=== PATIENT | male | born 1950 | race Caucasian/White ===

== ENCOUNTER → 2018-05-15 | Outpatient (CLI) | payer MEDICARE ==
--- NOTE | 2018-05-15 16:20 | RADIOLOGY REPORT (SQ) ---
EXAM DESCRIPTION: CHEST PA/LATERAL COMPLETED DATE/TIME: 05/15/2018 4:11 pm REASON FOR STUDY: COPD COMPARISON: CT CHEST 11/08/2013 TWO-VIEW CHEST 06/25/2014 EXAM PARAMETERS: NUMBER OF VIEWS: two views TECHNIQUE: Digital Frontal and Lateral radiographic views of the chest acquired. RADIATION DOSE: NA LIMITATIONS: none FINDINGS: LUNGS AND PLEURA: Airspace disease in the left lower lobe worrisome for pneumonia. Right lung clear. No gross pleural effusions or pneumothorax. Upper lobes are hyperlucent from obstructive disease. MEDIASTINUM AND HILAR STRUCTURES: No masses or contour abnormalities. HEART AND VASCULAR STRUCTURES: Old sternotomy for CABG. No cardiomegaly. Radiodense right and left coronary stents are present BONES: No acute findings. HARDWARE: None in the chest. OTHER: No other significant finding. IMPRESSION: Left lower lobe pneumonia TECHNICAL DOCUMENTATION: JOB ID: [id number] [employer]- All Rights Reserved Reading location - IP/workstation name: [email or web address]
== END ==
LOC: OD 15:59
PROVIDERS: ATTEND Internal Medicine
DX: J44.9 Chronic obstructive pulmonary disease, unspecified (principal)
CPT/HCPCS: 71046

== ENCOUNTER → 2018-07-05 | Outpatient (CLI) | payer MEDICARE ==
--- NOTE | 2018-07-05 11:34 | RADIOLOGY REPORT (SQ) ---
EXAM DESCRIPTION: CHEST PA/LATERAL COMPLETED DATE/TIME: 07/05/2018 10:50 am REASON FOR STUDY: PNEUMONIA, UNSPECIFIED ORGANISM COMPARISON: 05/15/2018. EXAM PARAMETERS: NUMBER OF VIEWS: two views TECHNIQUE: Digital Frontal and Lateral radiographic views of the chest acquired. RADIATION DOSE: NA LIMITATIONS: none FINDINGS: LUNGS AND PLEURA: Diffuse airspace disease throughout the right lung, particularly the pos terior inferior right upper lobe. Patchy airspace disease in the left lung base. Small right pleura l effusion. MEDIASTINUM AND HILAR STRUCTURES: No masses or contour abnormalities. HEART AND VASCULAR STRUCTURES: Heart normal size. No evidence for failure. BONES: No acute findings. HARDWARE: Sternotomy wires and coronary bypass markers. OTHER: No other significant finding. IMPRESSION: AIRSPACE DISEASE, WORSE ON THE RIGHT, CONSISTENT WITH PNEUMONIA. TECHNICAL DOCUMENTATION: JOB ID: [id number] [employer]- All Rights Reserved Reading location - IP/workstation name: [facility]
== END ==
LOC: OD 10:29
PROVIDERS: ATTEND Internal Medicine
DX: J18.9 Pneumonia, unspecified organism (principal)
CPT/HCPCS: 71046

== ENCOUNTER → 2018-07-19 | Outpatient (CLI) | payer MEDICARE ==
--- NOTE | 2018-07-19 12:36 | RADIOLOGY REPORT (SQ) ---
EXAM DESCRIPTION: LUMBAR SPINE 2 VIEWS COMPLETED DATE/TIME: 07/19/2018 12:12 pm REASON FOR STUDY: RADICULOPATHY, LUMBAR REGION M54.16 RADICULOPATHY, LUMBAR REGION J18.9 PNEUMONIA , UNSPECIFIED ORGANISM COMPARISON: CT chest 11/08/2013 NUMBER OF VIEWS: Two views. TECHNIQUE: AP and lateral radiographic images acquired of the lumbar spine. LIMITATIONS: None. FINDINGS: MINERALIZATION: Osteopenic SEGMENTATION: Normal. No transitional anatomy. ALIGNMENT: 25% anterolisthesis of L5 over S1 related to bilateral L5 spondylolysis VERTEBRAE: Less than 25% upper endplate compression at L1, unchanged from 2014. The T12 level is overpenetrated on today's lateral lumbar spine film but does show stable 25% navneet linnea deformity of T12 as compared to 2014. DISCS: High-grade disc space loss of height with vacuum disc phenomenon and cozk-cu-guzd appearance a t L5-S1 POSTERIOR ELEMENTS: Bilateral L5 spondylolysis. L4-5 and L5-S1 facet arthropathy HARDWARE: None in the spine. PARASPINAL SOFT TISSUES: Normal. PELVIS: Not in the field of view. OTHER: Calcified abdominal aorta without calcified aneurysm IMPRESSION: Degenerative disc changes at L5-S1 TECHNICAL DOCUMENTATION: JOB ID: [id number] [employer]- All Rights Reserved Reading location - IP/workstation name: [email or web address]
--- NOTE | 2018-07-19 12:37 | RADIOLOGY REPORT (SQ) ---
EXAM DESCRIPTION: CHEST PA/LATERAL COMPLETED DATE/TIME: 07/19/2018 12:12 pm REASON FOR STUDY: PNEUMONIA, UNSPECIFIED ORGANISM COMPARISON: 07/05/2018 EXAM PARAMETERS: NUMBER OF VIEWS: two views TECHNIQUE: Digital Frontal and Lateral radiographic views of the chest acquired. RADIATION DOSE: NA LIMITATIONS: none FINDINGS: LUNGS AND PLEURA: There is persistent, somewhat patchy opacification in the posterior aspe ct of the right upper lobe and in the right lower lobe. There appears to be improvement compared to the earlier study. MEDIASTINUM AND HILAR STRUCTURES: No masses or contour abnormalities. HEART AND VASCULAR STRUCTURES: Heart normal size. No evidence for failure. BONES: No acute findings. HARDWARE: None in the chest. OTHER: No other significant finding. IMPRESSION: Improving airspace disease in the right lung. TECHNICAL DOCUMENTATION: JOB ID: [id number] [employer]- All Rights Reserved Reading location - IP/workstation name: [email or web address]
== END ==
LOC: OD 11:37
PROVIDERS: ATTEND Internal Medicine
DX: M51.17 Intervertebral disc disorders with radiculopathy, lumbosacral region (principal); J18.9 Pneumonia, unspecified organism
CPT/HCPCS: 71046; 72100

== ENCOUNTER → 2018-07-26 | Outpatient (CLI) | payer MEDICARE ==
--- NOTE | 2018-07-26 15:02 | RADIOLOGY REPORT (SQ) ---
EXAM DESCRIPTION: BONE SURVEY COMPLETE COMPLETED DATE/TIME: 07/26/2018 2:44 pm REASON FOR STUDY: S32.050A WEDGE COMPRESSION FRACTURE OF FIFTH LUMBAR VERTEBRA, INITIAL ENCOU S32.05 0A WEDGE COMPRESSION FRACTURE OF FIFTH LUMBAR VERTEBRA COMPARISON: 07/19/2018 chest films. TECHNIQUE: Images of the axial and proximal appendicular skeleton are obtained, along with lateral s kull and frontal chest films. LIMITATIONS: None. FINDINGS: AP CHEST: Coarse markings in the lung bases, right greater than left as before. Stable ca rdiomediastinal silhouette. LATERAL SKULL: No worrisome bone lesions. AP BOTH HUMERI: No worrisome bone lesions. TWO-VIEW LUMBAR SPINE: Grade 1/2 listhesis at the lumbosacral junction with spondylosis. Mild wedgin g at L1. Adjacent wedge compression fracture also at T12. TWO-VIEW THORACIC SPINE: Midthoracic compression fracture. AP PELVIS: No worrisome bone lesions. AP BOTH FEMURS: No worrisome bone lesions. OTHER: Marked atherosclerosis. Osteopenic. IMPRESSION: 1. Several compression fractures, age indeterminate. 2. Bones otherwise intact. 3. Stable lung changes. 4. Heavy atherosclerotic calcification. TECHNICAL DOCUMENTATION: JOB ID: [id number] [employer]- All Rights Reserved Reading location - IP/workstation name: [email or web address]
--- NOTE | 2018-07-26 15:03 | WOMENS IMAGING REPORT ---
EXAM DESCRIPTION: BONE DENSITY HIP/SPINE COMPLETED DATE/TIME: 07/26/2018 2:04 pm REASON FOR STUDY: S32.050A WEDGE COMPRESSION FRACTURE OF FIFTH LUMBAR VERTEBRA, INITIAL ENCOU S32.05 0A WEDGE COMPRESSION FRACTURE OF FIFTH LUMBAR VERTEBRA COMPARISON: None. TECHNIQUE: Dual-Energy X-ray Absorptiometry (DEXA) of the AP Spine and Hip. LIMITATIONS: None. FINDINGS: LUMBAR SPINE: The bone mineral density (BMD) measured from L1-L4 in the AP projection correlates with a T-score of -3.1, which is osteoporosis as defined by the World Health Organization. HIP: The bone mineral density (BMD) measured in the left hip correlates with a T-score of -2.7, which is o steoporosis as defined by the World Health Organization. IMPRESSION: 1. LUMBAR SPINE: OSTEOPOROSIS. 2. HIP: OSTEOPOROSIS. COMMENT: The World Health Organization defines low BMD as follows: T-score: Normal: Greater than -1.0 Osteopenia: Between -1.0 and -2.5 Osteoporosis: Less than -2.5 without fractures Established osteoporosis: Less than -2.5 with fractures In general, you may wish to consider: Diagnosis Treatment Follow-up DEXA Normal BMD Prevention 2-3 years Osteopenia Prevention/Therapy 1-2 years Osteoporosis Therapy Yearly TECHNICAL DOCUMENTATION: JOB ID: [id number] [employer]- All Rights Reserved Reading location - IP/workstation name: [email or web address]
== END ==
LOC: RAD 13:40
PROVIDERS: ATTEND Internal Medicine
DX: S32.050A Wedge compression fracture of fifth lumbar vertebra, initial encounter for closed fracture (principal); M81.0 Age-related osteoporosis without current pathological fracture; X58.XXXA Exposure to other specified factors, initial encounter
CPT/HCPCS: 77075; 77080

== ENCOUNTER → 2018-11-30 | Outpatient (CLI) | payer MEDICARE ==
--- NOTE | 2018-11-30 12:50 | RADIOLOGY REPORT (SQ) ---
EXAM DESCRIPTION: HIPS BILATERAL COMPLETED DATE/TIME: 11/30/2018 11:39 am REASON FOR STUDY: PRIMARY OSTEOARTHRITIS M16.0 BILATERAL PRIMARY OSTEOARTHRITIS OF HIP COMPARISON: 07/26/2018 skeletal survey NUMBER OF VIEWS: Two views TECHNIQUE: AP pelvis and additional frog-leg view of both hips. LIMITATIONS: None. FINDINGS: MINERALIZATION: Normal. HIPS: No acute fracture or dislocation. No worrisome bone lesions. No significant joint space narrow ing or bony spurring. PELVIS AND SACRUM: No acute fracture or dislocation. No worrisome bone lesions. PUBIS AND ISCHIUM: No acute fracture. LOWER LUMBAR SPINE: No significant findings as visualized. SOFT TISSUES: Markedly calcified iliac and common femoral arteries bilaterally with vascular surgical clips at the right and left inguinal regions likely related to bilateral arterial vascular bypass gr afts OTHER: No other significant finding. IMPRESSION: No acute bony findings. No bony findings to explain history of pain TECHNICAL DOCUMENTATION: JOB ID: [id number] [employer]- All Rights Reserved Reading location - IP/workstation name: [email or web address]
== END ==
LOC: OD 11:12
PROVIDERS: ATTEND Internal Medicine
DX: M16.0 Bilateral primary osteoarthritis of hip (principal)
CPT/HCPCS: 73522

== ENCOUNTER → 2018-12-20 | Outpatient (CLI) | payer MEDICARE ==
--- NOTE | 2018-12-20 10:34 | RADIOLOGY REPORT (SQ) ---
EXAM DESCRIPTION: MRI LUMBAR SPINE WITHOUT COMPLETED DATE/TIME: 12/20/2018 8:54 am REASON FOR STUDY: SACROILIITIS, NOT ELSEWHERE CLASSIFIED M43.17 SPONDYLOLISTHESIS, LUMBOSACRAL HEDY ON M46.1 SACROILIITIS, NOT ELSEWHERE CLASSIFIED COMPARISON: Skeletal survey 07/26/2018 TECHNIQUE: Sagittal and Axial imaging includes T1, T2, STIR and gradient echo sequences. Coronal T2/ HASTE imaging. LIMITATIONS: None. FINDINGS: VISUALIZED UPPER ABDOMEN: Limited evaluation. No acute or suspicious findings suggested. SEGMENTATION: No transitional anatomy. The lowest well-developed disc space is labeled L5-S1. ALIGNMENT: 25% anterolisthesis of L5 over S1 is present related to bilateral L5 spondylolysis VERTEBRAE: Chronic appearing Schmorl's nodes upper and lower endplates of T12 without loss of height BONE MARROW: Normal. No marrow replacement or reactive changes. DISC SIGNAL: Diffuse decreased T2 weighted intervertebral disc signal POSTERIOR ELEMENTS: Generally intact. No pars defect evident. HARDWARE: None in the spine. CORD AND CONUS: Normal in size and signal intensity. Conus at the L1-2 level. SOFT TISSUES: No aortic aneurysm seen. No bulky retroperitoneal adenopathy or mass. No paraspinal mas s or fluid. T11-12: Mild bilateral facet arthropathy. No central or foraminal stenosis. T12-L1: Mild bilateral facet arthropathy. No central or foraminal stenosis. L1-L2: Minimal posterior disc bulging is present with mild facet and ligament hypertrophy. No centra l or foraminal stenosis. L2-L3: Mild diffuse posterior disc bulge, moderate bilateral facet and ligament hypertrophy. Borderl ine central canal narrowing best shown on axial T2 image 11. There is mild bilateral inferior forami nal narrowing left greater than right without definite exit L2 nerve root impingement. L3-L4: Mild diffuse posterior disc bulging is present with moderate bilateral facet and ligament hype rtrophy. Mild central canal stenosis. This is best shown on axial T2 image 17.There is mild bilater al inferior foraminal narrowing without exiting L3 nerve root impingement. L4-L5: Broad diffuse posterior disc bulging is present with moderate bilateral facet and ligament hyp ertrophy. Mild central canal stenosis with flattening of the thecal sac into a triangular shape best shown on axial T2 image 23. 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 Clumped nerve roots are best shown on sagittal image 8 and axial images 25-27. Elsewhere at L4-5, there is bilateral bulky facet arthropathy. Moderate bilateral foraminal narrowin g is present without exiting L4 nerve root impingement. L5-S1: Bilateral spondylolysis at L5 with 25% anterolisthesis of L5 over S1. Broad diffuse posterior disc bulge and bony spurring. Bulky bilateral facet hypertrophy. This causes high-grade bilateral foraminal narrowing at L5 with effacement of fat around the exiting L5 nerve roots within the neural foramina, best shown on sagittal T2 image 5 and sagittal T2 image 11 and 12. There is no central stenosis at L5-S1. 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 SACRUM: Visualized upper sacrum intact. OTHER: No other significant findings. IMPRESSION: Degenerative changes most pronounced at L5-S1 and L4-5 as above. TECHNICAL DOCUMENTATION: JOB ID: [id number] [employer]- All Rights Reserved Reading location - IP/workstation name: [email or web address]
== END ==
LOC: RAD 07:50
PROVIDERS: ATTEND Pain Medicine Interventional Pain Medicine
DX: M43.17 Spondylolisthesis, lumbosacral region (principal); M46.1 Sacroiliitis, not elsewhere classified
CPT/HCPCS: 72148

== ENCOUNTER → 2019-01-01 | Outpatient (CLI) | payer MEDICARE ==
--- NOTE | 2019-01-01 14:47 | RADIOLOGY REPORT (SQ) ---
EXAM DESCRIPTION: L SPINE W/FLEX/EXT COMPLETED DATE/TIME: 01/01/2019 10:47 am REASON FOR STUDY: M43.17 SPONDYLOLISTHESIS, LUMBOSACRAL REGION M43.17 SPONDYLOLISTHESIS, LUMBOSACRA L REGION COMPARISON: 07/19/2018 NUMBER OF VIEWS: Seven views. TECHNIQUE: AP, lateral, obliques, flexion, extension, and sacral radiographic images acquired. LIMITATIONS: None. FINDINGS: MINERALIZATION: Normal. SEGMENTATION: Normal. No transitional anatomy. ALIGNMENT: Similar grade 1 anterolisthesis of L5 on S1 due to bilateral pars interarticularis defects . FLEXION/EXTENSION: No instability. VERTEBRAE: Stable, mild anterior wedging deformity of T12 and L1. DISCS: Similar degenerative changes, greatest at the L5-S1 level with high-grade disc height loss. POSTERIOR ELEMENTS: Moderate arthrosis. Bilateral L5 pars interarticularis defects. HARDWARE: None in the spine. PARASPINAL SOFT TISSUES: Heavy atherosclerotic calcifications. PELVIS: Intact as visualized. No fractures or worrisome bone lesions. SI joints intact. OTHER: No other significant finding. IMPRESSION: Similar grade 1 anterolisthesis of L5 on S1 due to bilateral pars interarticularis defec ts.Similar degenerative changes, greatest at the L5-S1 level with high-grade disc height loss. No ac bill moore's slough fracture, stable mild anterior wedging deformity of T12 and L1. NO INSTABILITY ON FLEXION/EXTENSION. TECHNICAL DOCUMENTATION: JOB ID: [id number] [place]-72 2010 [employer]- All Rights Reserved Reading location - IP/workstation name: [email or web address]
== END ==
LOC: RAD 10:05
PROVIDERS: ATTEND Pain Medicine Interventional Pain Medicine
DX: M43.17 Spondylolisthesis, lumbosacral region (principal)
CPT/HCPCS: 72114

== ENCOUNTER → 2019-02-01 | Outpatient (CLI) | payer MEDICARE ==
--- NOTE | 2019-02-01 13:08 | RADIOLOGY REPORT (SQ) ---
EXAM DESCRIPTION: CTA CHEST COMPLETED DATE/TIME: 02/01/2019 12:49 pm REASON FOR STUDY: R06.02 SHORTNESS OF BREATH R06.02 SHORTNESS OF BREATH COMPARISON: 11/08/2013 TECHNIQUE: CT scan of the chest performed using helical scanning technique with dynamic intravenous contrast injection. Images reviewed with lung, soft tissue and bone windows. Reconstructed coronal and sagittal MPR images reviewed. Additional 3 dimensional post-processing performed to develop Maximal Intensity Projection images ([place] P). All images stored on PACS. All CT scanners at this facility use dose modulation, iterative reconstruction, and/or weight based d osing when appropriate to reduce radiation dose to as low as reasonably achievable (ALARA). [facility]: Dose Right [facility]: CareDose [facility]: Dose Right [facility]: Teradose 4D [facility]: i[employer]yt [employer] CONTRAST TYPE AND DOSE: contrast/concentration: Isovue 350.00 mg/ml; Total Contrast Delivered: 75.0 ml; Total Saline Delivered: 65.0 ml Contrast bolus optimized for the pulmonary arteries. Not diagnostic for the aorta. RENAL FUNCTION: Creatinine 0.8 RADIATION DOSE: CT Rad equipment meets quality standard of care and radiation dose reduction techniq ues were employed. CTDIvol: 6.2 - 18.8 mGy. DLP: 260 mGy-cm. . LIMITATIONS: None. FINDINGS: LUNGS AND PLEURA: Extensive centrilobular emphysema. There is irregular opacification the right lower lobe posteriorly. AORTA AND GREAT VESSELS: No aneurysm. Contrast bolus not optimized for the aorta. HEART: No pericardial effusion. Prior CABG. PULMONARY ARTERIES: No emboli visualized in the main pulmonary arteries or the segmental branches. HILAR AND MEDIASTINAL STRUCTURES: There are some nonspecific mediastinal nodes. The largest has a sh ort axis diameter of 10 mm. HARDWARE: Sternotomy wires. UPPER ABDOMEN: A couple small gallstones are present. THYROID AND OTHER SOFT TISSUES: No masses. No adenopathy. BONES: Mild compression changes at several levels. No osseous lesions. 3D MIPS: Confirm above findings. OTHER: No other significant finding. IMPRESSION: There is no evidence of pulmonary emboli. There is extensive pulmonary emphysema. Ther e is stable scarring in the right lower lobe posteriorly. Cholelithiasis. Osseous findings as descr ibed. COMMENT: Quality ID # [id number]: Final reports with documentation of one or more dose reduction techniques (e.g., Automated exposure control, adjustment of the mA and/or kV according to patient size, use of iterative reconstruction technique) TECHNICAL DOCUMENTATION: JOB ID: [id number] [employer]- All Rights Reserved Reading location - IP/workstation name: [email or web address]
== END ==
LOC: RAD 12:28
PROVIDERS: ATTEND Internal Medicine
DX: R06.02 Shortness of breath (principal)
CPT/HCPCS: 71275; 82565

== ENCOUNTER → 2019-03-02 | Outpatient (CLI) | payer MEDICARE ==
--- NOTE | 2019-03-02 11:47 | RADIOLOGY REPORT (SQ) ---
EXAM DESCRIPTION: KNEE RIGHT 2 VIEWS COMPLETED DATE/TIME: 03/02/2019 10:07 am REASON FOR STUDY: PAIN IN RT KNEE M25.561 PAIN IN RIGHT KNEE COMPARISON: None. NUMBER OF VIEWS: Two views. TECHNIQUE: AP and lateral radiographic images acquired of the right knee. LIMITATIONS: None. FINDINGS: MINERALIZATION: Normal. BONES: No acute fracture or dislocation. No worrisome bone lesions. JOINT: No effusion. SOFT TISSUES: Extensive atherosclerotic calcification. OTHER: No other significant finding. IMPRESSION: NEGATIVE STUDY OF THE RIGHT KNEE. NO RADIOGRAPHIC EVIDENCE OF ACUTE INJURY. TECHNICAL DOCUMENTATION: JOB ID: [id number] [employer]- All Rights Reserved Reading location - IP/workstation name: [email or web address]
== END ==
LOC: OD 09:56
PROVIDERS: ATTEND Internal Medicine
DX: M25.561 Pain in right knee (principal)

== ENCOUNTER 2019-05-11 09:56 | Emergency (ER) | payer MEDICARE ==
--- NOTE | 2019-05-11 10:09 | ER Document Report ---
ED Medical Screen (RME) - General Chief Complaint: Leg Pain Stated Complaint: LEG PAIN Time Seen by Provider: 05/11/19 10:04 Primary Care Provider: BUTCH BAILEY MD [Primary Care Provider] - Follow up as needed Mode of Arrival: Ambulatory Information source: Patient Notes: 69-year-old male presented to ED for complaint of back pain to the left going down the left leg. He is on pain management with Dr. Del Castillo and his primary care doctor is Dr. Bailey. He states that he has had surgery to the left side in the past for poor circulation where they needed to open up some of the vessels and when he was at home today his foot was black. He states he always has pain and has taken some Aleve and morphine for the pain but his foot was black and is concerned about that his family has massaged his leg and it is now has some color to the foot but he is concerned that it will get back the same as it was when he goes home. I have greeted and performed a rapid initial assessment of this patient. A comprehensive ED assessment and evaluation of the patient, analysis of test results and completion of medical decision making process will be conducted by an additional ED providers. TRAVEL OUTSIDE OF THE [place] IN LAST 30 DAYS: No - Related Data Allergies/Adverse Reactions: Penicillins Allergy (Intermediate, Verified 05/11/19 10:04) Past Medical History - Past Medical History Cardiac Medical History: Reports: Hx Heart Attack, Hx Hypertension Pulmonary Medical History: Reports: Hx COPD, Hx Pneumonia Denies: Hx Tuberculosis Endocrine Medical History: Reports: Hx Hyperthyroidism Past Surgical History: Reports: Hx Cardiac Catheterization - with stents, Hx Cardiac Surgery - cabg, Hx Coronary Artery Bypass Graft - Immunizations Hx Diphtheria, Pertussis, Tetanus Vaccination: Yes Physical Exam - Vital signs Vitals: Temp Pulse Resp BP Pulse Ox 97.5 F 63 16 133/64 H 96 05/11/19 09:59 05/11/19 09:59 05/11/19 09:59 05/11/19 09:59 05/11/19 09:59 Course - Vital Signs Vital signs: Temp Pulse Resp BP Pulse Ox 97.5 F 63 16 133/64 H 96 05/11/19 09:59 05/11/19 09:59 05/11/19 09:59 05/11/19 09:59 05/11/19 09:59 Doctor's Discharge - Discharge Referrals: BUTCH BAILEY MD [Primary Care Provider] - Follow up as needed
[2019-05-11 10:42] LABS: PROTHROMBIN TIME 14.3 SEC (11.4-15.4)
[2019-05-11 10:43] LABS: ABSOLUTE BASOPHILS # (AUTO) 0.1 10^3/uL (0.0-0.2); ABSOLUTE EOSINOPHILS # (AUTO) 0.4 10^3/uL (0.0-0.6); ABSOLUTE MONOCYTES (AUTO) 0.8 10^3/uL (0.1-1.4); ABSOLUTE NEUT (AUTO) 5.2 10^3/uL (1.7-8.2); BASOPHILS % (AUTO) 0.9 % (0-2); HEMATOCRIT 35.2 % (37.9-51.0); HEMOGLOBIN 11.3 g/dL (13.5-17.0); LYMPHOCYTES % (AUTO) 31.4 % (13-45); MEAN CORPUSCULAR HEMOGLOBIN 25.3 pg (27.0-33.4); MEAN CORPUSCULAR VOLUME 79 fl (80-97); MONOCYTES % (AUTO) 8.9 % (3-13); PARTIAL THROMBOPLASTIN TIME 34.3 SEC (23.5-35.8); PLATELET COUNT 283 10^3/uL (150-450); RED BLOOD COUNT 4.46 10^6/uL (4.35-5.55); RED CELL DISTRIBUTION WIDTH 22.6 % (11.5-14.0); SEGMENTED NEUTROPHILS % (AUTO) 54.8 % (42-78); TOTAL CELLS COUNTED % (AUTO) 100 %; WHITE BLOOD COUNT 9.5 10^3/uL (4.0-10.5)
[2019-05-11 10:58] LABS: ALBUMIN 4.4 g/dL (3.5-5.0); ALKALINE PHOSPHATASE 81 U/L (38-126); ANION GAP 11 (5-19); ASPARTATE AMINO TRANSFERASE 37 U/L (17-59); BILIRUBIN,DIRECT 0.4 mg/dL (0.0-0.4); BILIRUBIN,TOTAL 0.6 mg/dL (0.2-1.3); BLOOD UREA NITROGEN 19 mg/dL (7-20); CALCIUM 9.4 mg/dL (8.4-10.2); CARBON DIOXIDE 29 mmol/L (22-30); CHLORIDE 95 mmol/L (98-107); GLUCOSE 104 mg/dL (75-110); POTASSIUM 4.8 mmol/L (3.6-5.0); TOTAL PROTEIN 8.5 g/dL (6.3-8.2)
--- NOTE | 2019-05-11 13:29 | ER Document Report ---
ED Extremity Problem, Lower - General Chief Complaint: Leg Pain Stated Complaint: LEG PAIN Time Seen by Provider: 05/11/19 10:04 Primary Care Provider: BUTCH BAILEY MD [Primary Care Provider] - Follow up as needed Mode of Arrival: Ambulatory TRAVEL OUTSIDE OF THE [place] IN LAST 30 DAYS: No - HPI Notes: 69-year-old male with pertinent past medical history of peripheral vascular disease with aorto ilio grafts bilaterally, coronary artery disease, hypertension, hyperlipidemia to the emergency department with with complaints of left lower leg pain and discoloration that has been ongoing for the past week. He states that he noticed the pain when he was getting out of his recliner. After that he started to notice that his lower leg on the left side was changing color and at times his foot would look black. He states that his was able to massage the leg this morning and he had some return of color to the to the leg. He states that the leg has been cool to touch. He states that he takes an aspirin but no other blood thinners. He had his grafts placed in 2007 in [facility]. He has not seen a vascular specialist since then. He denies any other complaints. - Related Data Allergies/Adverse Reactions: Penicillins Allergy (Intermediate, Verified 05/11/19 10:04) Home Medications: Lipitor. Asa. Metoprolol. MS Contin. Pro air. Flomax Past Medical History - General Information source: Patient - Social History Smoking Status: Former Smoker Family History: Reviewed & Not Pertinent Patient has suicidal ideation: No Patient has homicidal ideation: No - Past Medical History Cardiac Medical History: Reports: Hx Heart Attack, Hx Hypertension Pulmonary Medical History: Reports: Hx COPD, Hx Pneumonia Denies: Hx Tuberculosis Endocrine Medical History: Reports: Hx Hyperthyroidism Past Surgical History: Reports: Hx Cardiac Catheterization - with stents, Hx Cardiac Surgery - cabg, Hx Coronary Artery Bypass Graft - Immunizations Hx Diphtheria, Pertussis, Tetanus Vaccination: Yes Hx Pneumococcal Vaccination: 02/26/13 Physical Exam - Vital signs Vitals: Temp Pulse Resp BP Pulse Ox 97.5 F 63 16 133/64 H 96 05/11/19 09:59 05/11/19 09:59 05/11/19 09:59 05/11/19 09:59 05/11/19 09:59 Course - Re-evaluation Re-evalutation: 05/11/19 13:[address] Samuels, ER attending, and have already placed a page out to [facility] to get in touch with vascular surgeon for transfer for this patient's ischemic leg. I have discussed with patient and about my concerns for ischemic leg in particular with the vascular study. Tech approached me after she performed the arterial study and said that both grafts were occluded but he seemed to have minimal flow in the profunda with some reconstitution in the popliteal. I called our radiologist and confirmed this as well but overall the femoral, peritoneal, dorsal tibialis are all occluded. There appears to be some flow in the anterior tibialis and some of the dorsalis pedis. I cannot palpate any pulses on exam. 05/11/19 Spoke with [facility] transfer center, [facility], and Dr. Mays, vascular specialist, about the patient. Dr. Mays agrees that patient needs vascular intervention. Unfortunately [facility] does not have a bed and is currently under capacity. We will place patient on wait list which patient could wait up to 24 hours and look at other options for treatment plan. Dr. Mays is a agreeable to this plan. Placed a page out to [facility] to discuss patient. Updated patient and his and they agree with the plan. While paging [facility], [facility] called back and stated that they have made a bed available for the patient. Patient will go via ground ALS. They will send a truck. Asked [facility] with the transfer center to call Dr. Mays to see if he would like for me to start heparin on this patient and confirm NPO status. Spoke with [facility] again, Dr. Mays would like heparin infusion and does NOT want a bolus. He would like for patient to be NPO. Updated patient and family and they agree with the plan. Will await the transport team. Impression: Left ischemic leg. Will transfer to [facility] [address] Mays's service for further intervention and management. Dr. Samuels, my ER attending, agrees with the plan and is aware of the plan for transfer. - Vital Signs Vital signs: Temp Pulse Resp BP Pulse Ox 97.9 F 78 19 162/77 H 95 05/11/19 13:31 05/11/19 13:31 05/11/19 13:31 05/11/19 13:31 05/11/19 13:31 - Laboratory Result Diagrams: 05/11/19 10:16 05/11/19 10:16 Laboratory results interpreted by me: 05/11/19 05/11/19 10:16 10:16 Hgb 11.3 L Hct 35.2 L MCV 79 L MCH 25.3 L RDW 22.6 H Sodium 135.3 L Chloride 95 L Total Protein 8.5 H - Diagnostic Test Radiology reviewed: Image reviewed, Reports reviewed Discharge - Discharge Clinical Impression: Ischemic leg Condition: Stable Disposition: [facility] Referrals: BUTCH BAILEY MD [Primary Care Provider] - Follow up as needed
[2019-05-11] MEDS ORDERED: HEPARIN SODIUM,PORCINE/D5W 25,000 UNIT/250 ML RTUINJ IV PRN (14:33)
--- NOTE | 2019-05-11 15:56 | RADIOLOGY REPORT (SQ) ---
EXAM DESCRIPTION: ARTERIAL LOWER EXTREM BILAT COMPLETED DATE/TIME: 05/11/2019 2:05 pm REASON FOR STUDY: left foot and leg, foot black at home COMPARISON: None. TECHNIQUE: Dynamic and static murphy scale and color images acquired of the lower extremity arteries. Additional selected spectral images recorded. LIMITATIONS: None. FINDINGS: RIGHT LEG: The patient has a history of bypass surgery for occlusive aortic iliac disease. The left-sided limb of the graft is occluded. The left proximal profunda femoris artery is patent and it demonstrates mo nophasic waveforms on spectral Doppler. The left superficial femoral is occluded. The proximal left popliteal artery is reconstituted (presumably via collaterals) and it demonstrates monophasic wavefo chayo on spectral Doppler; the distal portion of the vessel is occluded as is the entire left posterior tibial artery. The left proximal peroneal artery is patent with monophasic waveforms on Doppler. T here are also monophasic waveforms throughout the length of the left anterior tibial artery and in th e dorsalis pedis artery. On the contralateral side the bypass graft is patent. The profunda femoris artery is also patent and demonstrates triphasic/biphasic waveforms on spectral Doppler. The left superficial femoral and pop liteal arteries are occluded. There are monophasic waveforms within the distal peroneal, anterior ti bial and posterior tibial arteries and in the dorsalis pedis. IMPRESSION: Occlusion of the left-sided aorto-bifemoral femoral bypass graft. The bilateral superfi cial femoral arteries and the right popliteal artery are also occluded. Below the popliteal fossa on the right there is evidence of severe arterial disease with monophasic waveforms in the peroneal, an terior tibial and posterior tibial arteries. On the left the posterior tibial artery is occluded and there is evidence of severe arterial disease with monophasic waveforms within the proximal peroneal and in the anterior tibial and dorsalis pedis. COMMENT: [facility] NORMAL: Greater than 1.0 MINIMAL DISEASE: 0.9 to 1.0 CLAUDICATION: 0.5 to 0.9 SEVERE ARTERIAL DISEASE: Less than 0.5 [facility] NORMAL: Greater than 1.0 (1.2 If Heavy Calcifications) NORMAL TO MILD ISCHEMIA: 0.8 to 1.0 MODERATE ISCHEMIA: 0.4 to 0.8 SEVERE ISCHEMIA: Less than 0.4 TECHNICAL DOCUMENTATION: JOB ID: [id number]- All Rights Reserved Reading location - IP/workstation name: [email or web address]
[2019-05-11 16:17] VITALS: BP 145/86
== END 2019-05-11 17:03 | disposition short-term general hospital (02) ==
LOC: ER 09:56
DX: I70.302 Unspecified atherosclerosis of unspecified type of bypass graft(s) of the extremities, left leg (principal); I70.202 Unspecified atherosclerosis of native arteries of extremities, left leg; M79.662 Pain in left lower leg; I25.10 Atherosclerotic heart disease of native coronary artery without angina pectoris; I10 Essential (primary) hypertension; I25.2 Old myocardial infarction; J44.9 Chronic obstructive pulmonary disease, unspecified; Z79.82 Long term (current) use of aspirin; Z79.899 Other long term (current) drug therapy; Z79.891 Long term (current) use of opiate analgesic; Z87.891 Personal history of nicotine dependence; Z95.1 Presence of aortocoronary bypass graft; Z95.5 Presence of coronary angioplasty implant and graft
CPT/HCPCS: 99284; 96365; 96366; 36415; 85025; 85610; 85730; 80053; 93925; J1644

== ENCOUNTER 2019-11-29 16:50 | Inpatient (IN) | payer MEDICARE ==
[2019-11-29 18:37] LABS: HEMATOCRIT 28.5 % (37.9-51.0); HEMOGLOBIN 8.8 g/dL (13.5-17.0); MEAN CORPUSCULAR HEMOGLOBIN 21.9 pg (27.0-33.4); MEAN CORPUSCULAR HGB CONC 30.9 g/dL (32.0-36.0); MEAN CORPUSCULAR VOLUME 71 fl (80-97); PLATELET COUNT 233 10^3/uL (150-450); RED BLOOD COUNT 4.02 10^6/uL (4.35-5.55); RED CELL DISTRIBUTION WIDTH 19.5 % (11.5-14.0); WHITE BLOOD COUNT 7.1 10^3/uL (4.0-10.5)
--- NOTE | 2019-11-29 18:37 | RADIOLOGY REPORT (SQ) ---
EXAM DESCRIPTION: CHEST SINGLE VIEW IMAGES COMPLETED DATE/TIME: 11/29/2019 6:20 pm REASON FOR STUDY: Short of breath, chf COMPARISON: 07/19/2018 EXAM PARAMETERS: NUMBER OF VIEWS: One view. TECHNIQUE: Single frontal radiographic view of the chest acquired. RADIATION DOSE: NA LIMITATIONS: None. FINDINGS: LUNGS AND PLEURA: No opacities, masses or pneumothorax. No pleural effusion. MEDIASTINUM AND HILAR STRUCTURES: No masses. Contour normal. HEART AND VASCULAR STRUCTURES: Cardiomegaly. No anthony pulmonary edema. BONES: No acute findings. HARDWARE: Sternotomy wires. OTHER: No other significant finding. IMPRESSION: Cardiomegaly without anthony pulmonary edema. TECHNICAL DOCUMENTATION: JOB ID: [id number] [employer]- All Rights Reserved Reading location - IP/workstation name: [email or web address]
[2019-11-29 18:47] LABS: ALBUMIN 4.7 g/dL (3.5-5.0); ALKALINE PHOSPHATASE 59 U/L (38-126); ANION GAP 13 (5-19); ASPARTATE AMINO TRANSFERASE 58 U/L (17-59); BILIRUBIN,DIRECT 0.3 mg/dL (0.0-0.4); BILIRUBIN,TOTAL 0.7 mg/dL (0.2-1.3); BLOOD UREA NITROGEN 15 mg/dL (7-20); CALCIUM 9.4 mg/dL (8.4-10.2); CARBON DIOXIDE 24 mmol/L (22-30); CHLORIDE 99 mmol/L (98-107); GLUCOSE 78 mg/dL (75-110); IRON(TIBC) 25.6 ug/dL (49-181); POTASSIUM 4.3 mmol/L (3.6-5.0); TOTAL PROTEIN 8.3 g/dL (6.3-8.2)
[2019-11-29 19:04] LABS: FREE T3 3.76 pg/mL (2.77-5.27); FREE T4 (FREE THYROXINE) 1.63 ng/dL (0.78-2.19)
[2019-11-29 19:06] LABS: ABSOLUTE LYMPHOCYTES# (MANUAL) 2.5 10^3/uL (0.5-4.7); ABSOLUTE MONOCYTES # (MANUAL) 0.5 10^3/uL (0.1-1.4); BASOPHILS % (MANUAL) 1 % (0-2); EOSINOPHILS % (MANUAL) 2 % (0-6); LYMPHOCYTES % (MANUAL) 33 % (13-45); MONOCYTES % (MANUAL) 7 % (3-13); SEGMENTED NEUTROPHILS % (MAN) 55 % (42-78); TOTAL CELLS COUNTED 100
[2019-11-29 19:09] LABS: ANISOCYTOSIS 2+; POIKILOCYTOSIS 1+; POLYCHROMASIA SLIGHT
[2019-11-29 19:10] LABS: BURR CELLS SLIGHT; OVALOCYTES SLIGHT; PLATELET COMMENT ADEQUATE; TARGET CELLS SLIGHT; TEAR DROP CELLS SLIGHT
[2019-11-29 19:18] LABS: THYROID STIMULATING HORMONE 0.36 uIU/mL (0.47-4.68)
[2019-11-29 19:23] LABS: FERRITIN 8.11 ng/mL (17.9-464.0)
[2019-11-29] MEDS ORDERED: FERRIC CARBOXYMALTOSE INJ 750 MG/15 ML VIAL IV SCH (20:00)
--- NOTE | 2019-11-29 20:22 | PDOC H&P ---
History of Present Illness Admission Date/PCP: 11/29/19 16:50 BUTCH BAILEY MD History of Present Illness: JOSE L FAROOQ is a 69 year old male.Patient was admitted directly for the management of acute systolic heart failure. I had telehealth video-audio encounter with the patient, he complained of increased shortness of breath and increased lower extremity swelling. I advised the patient to have serum B type natruretic peptide assayed, this was elevated consistent with CHF, he was also found to have iron deficiency anemia. He has a history of rectal cancer that was treated surgically, is scheduled to have GI endoscopy next week but because of the acute systolic heart failure he is admitted for management.Transthoracic echocardiogram was done, the left ventricular systolic function is mildly reduced the estimated ejection fraction about 40%, the right ventricle is moderately dilated, there is mild to moderate amount of mitral Regurgitation there is no aortic valve stenosis there is a trace amount of aortic regurgitation there is mild pulmonary hypertension Past Medical History Cardiac Medical History: Reports: Congestive Heart Failure, Coronary Artery Disease, Myocardial Infarction, Hyperlipidema, Hypertension, Peripheral Vascular Disease Pulmonary Medical History: Reports: Chronic Obstructive Pulmonary Disease (COPD), Pneumonia Past Surgical History Past Surgical History: Reports: Cardiac Catheterization - with stents, Coronary Artery Bypass Graft, Vascular Surgery Social History Smoking Status: Former Smoker Last Time Smoked: 2011 Frequency of Alcohol Use: Occasional Hx Recreational Drug Use: No Drugs: None Hx Prescription Drug Abuse: No Family History Family History: Reviewed & Not Pertinent Parental Family History Reviewed: Yes Children Family History Reviewed: Yes Sibling(s) Family History Reviewed.: Yes Medication/Allergy Home Medications: RX: Albuterol Sulfate [Proair HFA Inhalation Aerosol 8.5 gm MDI] 2 puff IH Q4HP PRN 12/11/12 RX: Morphine Sulfate [Ms-Contin Sr 100 mg Tablet] 60 mg PO Q12 12/11/12 RX: Budesonide/Formoterol Fumarate [Symbicort HFA 160-4.5 mcg Inhaler 6 gm] 2 puff IH Q12 02/05/13 Atorvastatin Calcium [Lipitor 20 mg Tablet] 20 mg PO QHS 11/08/13 Tamsulosin HCl [Flomax 0.4 mg Cap.sr] 0.4 mg PO DAILY 11/08/13 Aspirin [Ecotrin 81 mg EC Tablet] 81 mg PO DAILY 06/11/20 Metoprolol Succinate [Toprol Xl 25 mg Tab.sr] 25 mg PO DAILY 11/29/19 Nitroglycerin [Nitrostat 0.4 mg (1/150 Gr) Tabs 25/Bottle] 1 tab SL Q5MP PRN 11/29/19 Omeprazole 20 mg PO DAILY 11/29/19 RX: Furosemide [Lasix 40 mg Tablet] 40 mg PO DAILY 11/29/19 Tiotropium [place] [Spiriva Handihaler 5 Cap/Kit (18 Mcg/Cap)] 1 cap IH DAILY 11/29/19 Allergies/Adverse Reactions: Penicillins Allergy (Intermediate, Verified 05/11/19 10:04) Review of Systems Constitutional: ABSENT: chills, fever(s), headache(s), weight gain, weight loss Eyes: ABSENT: visual disturbances Ears: ABSENT: hearing changes Cardiovascular: PRESENT: dyspnea on exertion, edema, orthropnea, palpitations Respiratory: PRESENT: dyspnea. ABSENT: cough, hemoptysis Gastrointestinal: ABSENT: abdominal pain, constipation, diarrhea, hematemesis, hematochezia, nausea, vomiting Genitourinary: ABSENT: dysuria, hematuria Musculoskeletal: ABSENT: joint swelling Integumentary: ABSENT: rash, wounds Neurological: ABSENT: abnormal gait, abnormal speech, confusion, dizziness, focal weakness, syncope Psychiatric: ABSENT: anxiety, depression, homidical ideation, suicidal ideation Endocrine: ABSENT: cold intolerance, heat intolerance, menstrual abnormalities, polydipsia, polyuria Hematologic/Lymphatic: ABSENT: easy bleeding, easy bruising, lymphadenopathy Physical Exam Vital Signs: Temp Pulse Resp BP Pulse Ox 97.7 F 86 18 160/90 H 100 11/29/19 18:02 11/29/19 18:02 11/29/19 18:02 11/29/19 18:02 11/29/19 18:02 General appearance: PRESENT: no acute distress, thin Head exam: PRESENT: atraumatic, normocephalic Eye exam: PRESENT: PERRLA Ear exam: PRESENT: normal external ear exam Mouth exam: PRESENT: moist, tongue midline Neck exam: PRESENT: full ROM Respiratory exam: PRESENT: rales Cardiovascular exam: PRESENT: RRR, +S1, +S2, systolic murmur Vascular exam: PRESENT: normal capillary refill GI/Abdominal exam: PRESENT: normal bowel sounds, soft Rectal exam: PRESENT: deferred Neurological exam: PRESENT: alert, CN II-XII grossly intact Psychiatric exam: PRESENT: appropriate affect, normal mood Skin exam: PRESENT: dry, intact, warm Results Laboratory Results: 11/29/19 18:14 11/29/19 18:14 11/29/19 11/29/19 11/29/19 18:14 18:14 18:14 WBC 7.1 RBC 4.02 L Hgb 8.8 L Hct 28.5 L MCV 71 L MCH 21.9 L MCHC 30.9 L RDW 19.5 H Plt Count 233 Seg Neutrophils % Not Reportable Sodium 135.6 L Potassium 4.3 Chloride 99 Carbon Dioxide 24 Anion Gap 13 BUN 15 Creatinine 0.86 Est GFR ( Amer) > 60 Glucose 78 Calcium 9.4 Iron 25.6 L TIBC 514 H % Saturation 5 Ferritin 8.11 L Total Bilirubin 0.7 AST 58 Alkaline Phosphatase 59 Total Protein 8.3 H Albumin 4.7 TSH 0.36 L Free T4 1.63 Free T3 pg/mL 3.76 11/29/19 18:14 WBC RBC Hgb Hct MCV MCH MCHC RDW Plt Count Seg Neutrophils % Sodium Potassium Chloride Carbon Dioxide Anion Gap BUN Creatinine Est GFR ( Amer) Glucose Calcium Iron TIBC % Saturation Ferritin Total Bilirubin AST Alkaline Phosphatase Total Protein Albumin TSH Cancelled Free T4 Free T3 pg/mL 11/29/19 18:14 NT-Pro-B Natriuret Pep 5020 H Impressions: Chest X-Ray 11/29/19 00:00 IMPRESSION: Cardiomegaly without anthony pulmonary edema. Assessment & Plan - Diagnosis (1) Acute systolic heart failure Is this a current diagnosis for this admission?: Yes Plan: Patient to be treated for acute systolic heart failure, start furosemide infusion, Entresto, beta-carlos manuel (2) Iron deficiency anemia Qualifiers: Iron deficiency anemia type: chronic blood loss Qualified Code(s): D50.0 - Iron deficiency anemia secondary to blood loss (chronic) Is this a current diagnosis for this admission?: Yes Plan: Transfuse Injectafer, the hemoglobin is not low enough for blood transfusion, patient will need endoscopy probably after CHF is resolved (3) COPD (chronic obstructive pulmonary disease) Qualifiers: COPD type: unspecified COPD Qualified Code(s): J44.9 - Chronic obstructive pulmonary disease, unspecified Is this a current diagnosis for this admission?: Yes (4) CAD (coronary artery disease) Qualifiers: Coronary Disease-Associated Artery/Lesion type: [place] artery [place] vs. transplanted heart: [place] heart Associated angina: without angina Qualified Code(s): I25.10 - Atherosclerotic heart disease of [place] coronary artery without angina pectoris Is this a current diagnosis for this admission?: Yes Plan: Stable
[2019-11-29] MEDS ORDERED: (PENDING PHARMACY ID) (Albuterol Sulfate 2 PUFF) IH PRN (21:03)
[2019-11-29] MEDS ORDERED: (PENDING PHARMACY ID) (Tiotropium Bromide [Spiriva Handihaler 5 Cap/Kit (18 Mcg/Cap)] 1 CA IH SCH (21:15)
[2019-11-29] MEDS ORDERED: ALBUTEROL SULFATE HFA (90 MCG/PUFF) 8 GM MDI IH PRN (21:18)
[2019-11-29 22:00] LABS: TROPONIN I < 0.012 ng/mL
[2019-11-29] MEDS ORDERED: METOPROLOL SUCCINATE 25 MG TAB.SR.24H PO SCH (22:00)
[2019-11-29] MEDS ORDERED: MORPHINE SULFATE SR 100 MG TABLET PO SCH (22:00)
[2019-11-29] MEDS ORDERED: ENOXAPARIN SODIUM INJ 40 MG/0.4 ML DISP.SYRIN SUBCUT SCH (22:00)
[2019-11-29] MEDS: SACUBITRIL/VALSARTAN 24 MG/26 MG TABLET PO SCH (22:09)
[2019-11-29] MEDS: MORPHINE SULFATE SR 30 MG TABLET PO SCH (22:10)
[2019-11-29] MEDS: TAMSULOSIN HCL 0.4 MG CAP.SR.24H PO SCH (22:11)
[2019-11-29] MEDS: ATORVASTATIN CALCIUM 20 MG TABLET PO SCH (22:11)
[2019-11-29] MEDS: FLUTICASONE/VILANTEROL 200-25 MCG/DOSE IH SCH (22:12)
[2019-11-29] MEDS: FERRIC CARBOXYMALTOSE 750 MG in NORMAL SALINE 250 ML IV SCH (22:12)
[2019-11-29] MEDS: UMECLIDINIUM BROMIDE 62.5 MCG/DOSE IH SCH (22:13)
[2019-11-29] MEDS ORDERED: ENOXAPARIN SODIUM INJ 40 MG/0.4 ML DISP.SYRIN SUBCUT ONE (22:15)
[2019-11-29] MEDS ORDERED: METOPROLOL SUCCINATE 25 MG TAB.SR.24H PO ONE (22:30)
[2019-11-30] MEDS: NORMAL SALINE 250 ML with FUROSEMIDE 250 MG IV PRN ×2 (00:08)
[2019-11-30 03:54] LABS: APPEARANCE,URINE CLEAR; BILIRUBIN,URINE NEGATIVE (NEGATIVE); COLOR,URINE YELLOW; GLUCOSE, URINE NEGATIVE (NEGATIVE); KETONES,URINE NEGATIVE (NEGATIVE); LEUKOCYTE ESTERASE,URINE NEGATIVE (NEGATIVE); NITRITE,URINE NEGATIVE (NEGATIVE); PROTEIN,URINE NEGATIVE (NEGATIVE); URINE SPECIFIC GRAVITY 1.009
[2019-11-30] MEDS: PANTOPRAZOLE SODIUM 20 MG TABLET.DR PO SCH (05:38)
[2019-11-30 06:06] LABS: ALBUMIN 3.7 g/dL (3.5-5.0); ALKALINE PHOSPHATASE 51 U/L (38-126); ANION GAP 10 (5-19); ASPARTATE AMINO TRANSFERASE 44 U/L (17-59); BILIRUBIN,DIRECT 0.1 mg/dL (0.0-0.4); BLOOD UREA NITROGEN 16 mg/dL (7-20); CALCIUM 8.8 mg/dL (8.4-10.2); CARBON DIOXIDE 24 mmol/L (22-30); CHLORIDE 103 mmol/L (98-107); GLUCOSE 91 mg/dL (75-110); POTASSIUM 4.3 mmol/L (3.6-5.0); TOTAL PROTEIN 6.8 g/dL (6.3-8.2)
[2019-11-30 06:14] LABS: CREATINE KINASE MB 8.94 ng/mL (<4.55); TROPONIN I 0.012 ng/mL
[2019-11-30] MEDS: MORPHINE SULFATE SR 30 MG TABLET PO SCH ×2 (10:09→22:06)
[2019-11-30] MEDS: UMECLIDINIUM BROMIDE 62.5 MCG/DOSE IH SCH (10:10)
[2019-11-30] MEDS: FLUTICASONE/VILANTEROL 200-25 MCG/DOSE IH SCH (10:10)
[2019-11-30] MEDS: SACUBITRIL/VALSARTAN 24 MG/26 MG TABLET PO SCH ×2 (10:10→17:38)
--- NOTE | 2019-11-30 11:58 | PDOC CONSULTATION ---
Consultation Consult Date: 11/30/19 Attending physician:: BUTCH BAILEY Provider Consulted: ARNOL RUDOLPH Consult reason:: Congestive heart failure History of Present Illness Admission Date/PCP: 11/29/19 16:50 BUTCH BAILEY MD History of Present Illness: JOSE L FAROOQ is a 69 year old male 69-year-old male with the following active problems 1. COPD 2. Nicotine dependence in remission 3. Coronary artery disease 4. CABG 5. Congestive heart failure NYHA class II 6. Peripheral vascular disease 7. Status post aortoiliac bypass graft Patient has had insidious onset of dyspnea and bilateral lower extremity swelling which is progressed in the last week or so. Since admission to the hospital he feels somewhat better. Overnight telemetry showed sinus rhythm with bigeminy. No symptoms were reported. He does not presently report any chest pain. He follows with [facility]. No recent cardiac work-up is reported. Specifically denies any chest pain or anginal type symptoms. Reports compliance with his medications Former smoker. Quit about 8 years ago around the time of his bypass surgery. He also reports peripheral vascular disease and aortic iliac bypass. Numerous coronary interventions are also reported. Not aware of his recent ejection fraction. He reports compliance with his medications. No familial illnesses reported Past Medical History Cardiac Medical History: Reports: Myocardial Infarction, Hypertension Pulmonary Medical History: Reports: Chronic Obstructive Pulmonary Disease (COPD), Pneumonia Denies: Tuberculosis Endocrine Medical History: Reports: Hyperthyroidism Psychiatric Medical History: Denies: Depression Past Surgical History Past Surgical History: Reports: Cardiac Catheterization - with stents, Coronary Artery Bypass Graft, Vascular Surgery Social History Smoking Status: Former Smoker Last Time Smoked: 2011 Frequency of Alcohol Use: Occasional Hx Recreational Drug Use: No Drugs: None Hx Prescription Drug Abuse: No Family History Family History: Reviewed & Not Pertinent Parental Family History Reviewed: Yes - No familial illnesses reported Children Family History Reviewed: NA Sibling(s) Family History Reviewed.: NA Medication/Allergy Home Medications: Albuterol Sulfate [Proair HFA Inhalation Aerosol 8.5 gm MDI] 2 puff IH Q4HP PRN 12/11/12 Morphine Sulfate [Ms-Contin Sr 100 mg Tablet] 60 mg PO Q12 12/11/12 Budesonide/Formoterol Fumarate [Symbicort HFA 160-4.5 mcg Inhaler 6 gm] 2 puff IH Q12 02/05/13 Atorvastatin Calcium [Lipitor 20 mg Tablet] 20 mg PO QHS 11/08/13 Tamsulosin HCl [Flomax 0.4 mg Cap.sr] 0.4 mg PO DAILY 11/08/13 Aspirin [Ecotrin 81 mg EC Tablet] 81 mg PO DAILY 11/29/19 Furosemide [Lasix 40 mg Tablet] 40 mg PO DAILY 11/29/19 Metoprolol Succinate [Toprol Xl 25 mg Tab.sr] 25 mg PO DAILY 11/29/19 Nitroglycerin [Nitrostat 0.4 mg (1/150 Gr) Tabs 25/Bottle] 1 tab SL Q5MP PRN 11/29/19 Omeprazole 20 mg PO DAILY 11/29/19 Tiotropium [place] [Spiriva Handihaler 5 Cap/Kit (18 Mcg/Cap)] 1 cap IH DAILY 11/29/19 Allergies/Adverse Reactions: Penicillins Allergy (Intermediate, Verified 05/11/19 10:04) Review of Systems Constitutional: PRESENT: as per HPI Eyes: PRESENT: as per HPI Cardiovascular: PRESENT: dyspnea on exertion, edema, orthropnea Respiratory: PRESENT: dyspnea Physical Exam Vital Signs: Temp Pulse Resp BP Pulse Ox 97.5 F 66 18 105/44 L 96 11/30/19 10:55 11/30/19 10:55 11/30/19 10:55 11/30/19 10:55 11/30/19 10:55 Intake & Output 11/29/19 11/30/19 12/01/19 06:59 06:59 06:59 Intake Total 265 Output Total 625 Balance -625 265 Weight 54.2 kg General appearance: PRESENT: cooperative, thin Head exam: PRESENT: atraumatic, normocephalic Eye exam: PRESENT: conjunctiva pale, EOMI Mouth exam: PRESENT: moist Respiratory exam: PRESENT: crackles, decreased breath sounds, symmetrical, u nlabored Cardiovascular exam: PRESENT: RRR, +S1, +S2, systolic murmur Pulses: PRESENT: normal radial pulses GI/Abdominal exam: PRESENT: soft Rectal exam: PRESENT: deferred Neurological exam: PRESENT: alert, awake, oriented to person, oriented to place, oriented to time, oriented to situation Psychiatric exam: PRESENT: appropriate affect Skin exam: PRESENT: dry, intact, normal color Results Laboratory Results: 11/29/19 18:14 11/30/19 05:13 11/29/19 11/29/19 11/29/19 18:14 18:14 18:14 WBC 7.1 RBC 4.02 L Hgb 8.8 L Hct 28.5 L MCV 71 L MCH 21.9 L MCHC 30.9 L RDW 19.5 H Plt Count 233 Seg Neutrophils % Not Reportable Sodium 135.6 L Potassium 4.3 Chloride 99 Carbon Dioxide 24 Anion Gap 13 BUN 15 Creatinine 0.86 Est GFR ( Amer) > 60 Glucose 78 Calcium 9.4 Iron 25.6 L TIBC 514 H % Saturation 5 Ferritin 8.11 L Total Bilirubin 0.7 AST 58 Alkaline Phosphatase 59 Total Protein 8.3 H Albumin 4.7 TSH 0.36 L Free T4 1.63 Free T3 pg/mL 3.76 Urine Color Urine Appearance Urine pH Ur Specific [place] Urine Protein Urine Glucose (UA) Urine Ketones Urine Blood Urine Nitrite Ur Leukocyte Esterase Urine WBC (Auto) Urine RBC (Auto) 11/29/19 11/30/19 11/30/19 18:14 03:35 05:13 WBC RBC Hgb Hct MCV MCH MCHC RDW Plt Count Seg Neutrophils % Sodium 136.6 L Potassium 4.3 Chloride 103 Carbon Dioxide 24 Anion Gap 10 BUN 16 Creatinine 0.93 Est GFR ( Amer) > 60 Glucose 91 Calcium 8.8 Iron TIBC % Saturation Ferritin Total Bilirubin 1.0 AST 44 Alkaline Phosphatase 51 Total Protein 6.8 Albumin 3.7 TSH Cancelled Free T4 Free T3 pg/mL Urine Color YELLOW Urine Appearance CLEAR Urine pH 7.0 Ur Specific [place] 1.009 Urine Protein NEGATIVE Urine Glucose (UA) NEGATIVE Urine Ketones NEGATIVE Urine Blood NEGATIVE Urine Nitrite NEGATIVE Ur Leukocyte Esterase NEGATIVE Urine WBC (Auto) 0 Urine RBC (Auto) 0 11/29/19 11/29/19 11/29/19 18:14 21:16 21:16 Creatine Kinase 750 H CK-MB (CK-2) 13.70 H Troponin I < 0.012 NT-Pro-B Natriuret Pep 5020 H 11/30/19 11/30/19 05:13 05:13 Creatine Kinase 486 H CK-MB (CK-2) 8.94 H Troponin I 0.012 NT-Pro-B Natriuret Pep EKG Comments: Telemetry presently shows sinus rhythm at 82 bpm Twelve-lead EKG 11/30/2019. Independently reviewed by me. Sinus rhythm, 74 bpm. With PVCs in a bigeminal pattern. Lab data Hemoglobin 8.8-previous 11.3 on May 11, 2019 Platelets 233 Troponin is less than 0.12 Ferritin level is low at 8.11 Iron level is low is 25.6 Chest x-ray 11/29/2019 Cardiomegaly without anthony pulmonary edema. Sternotomy wires. Impressions: Chest X-Ray 11/29/19 00:00 IMPRESSION: Cardiomegaly without anthony pulmonary edema. Assessment & Plan - Diagnosis (1) Anemia Qualifiers: Anemia type: iron deficiency Is this a current diagnosis for this admission?: Yes Plan: Iron deficiency anemia by labs. This requires additional work-up May be symptoms are probably related to anemia. Will review echocardiogram that has been performed. (2) CAD (coronary artery disease) Qualifiers: Coronary Disease-Associated Artery/Lesion type: [place] artery [place] vs. transplanted heart: [place] heart Is this a current diagnosis for this admission?: Yes Plan: Not having ischemic type chest pain or symptoms suggestive of ongoing myocardial ischemia Continue guideline directed medical therapy for coronary artery disease I suspect he may be having occult GI blood loss. We will hold off on antiplatelet agents until anemia is corrected and worked up. No ischemic symptoms at the moment Continue other medications including beta-blockers and statins as feasible. (3) CHF (congestive heart failure), NYHA class II Qualifiers: Congestive heart failure type: systolic Congestive heart failure chronicity: acute on chronic Qualified Code(s): I50.23 - Acute on chronic systolic (congestive) heart failure Is this a current diagnosis for this admission?: Yes Plan: Presentation suggestive of acute on chronic congestive heart failure. It is po ssible that anemia has precipitated the situation. We will review echocardiogram. Meanwhile limit total free water intake to less than 1 L/day
--- NOTE | 2019-11-30 12:00 | RADIOLOGY REPORT (SQ) ---
EXAM DESCRIPTION: CT CHEST WITHOUT IMAGES COMPLETED DATE/TIME: 11/30/2019 11:37 am REASON FOR STUDY: pneumonia COMPARISON: Chest x-ray dated 11/29/2019. Chest CT dated 02/01/2019. TECHNIQUE: CT scan performed of the chest without intravenous contrast. Images reviewed with lung, soft tissue and bone windows. Reconstructed coronal and sagittal MPR images reviewed. All images st ored on PACS. All CT scanners at this facility use dose modulation, iterative reconstruction, and/or weight based d osing when appropriate to reduce radiation dose to as low as reasonably achievable (ALARA). [facility]: Dose Right [facility]: CareDose [facility]: Dose Right [facility]: Teradose 4D [facility]: [place] RADIATION DOSE: CT Rad equipment meets quality standard of care and radiation dose reduction techniq ues were employed. CTDIvol: 3.8 mGy. DLP: 151 mGy-cm. mGy. LIMITATIONS: No technical limitations. FINDINGS: LUNGS AND PLEURA: Chronic emphysematous changes. Stable chronic scarring in the right [place] g base. No masses, infiltrates, or pneumothorax. No pleural effusions or pleural calcifications. HILAR AND MEDIASTINAL STRUCTURES: No identified masses or abnormal nodes. No obvious aneurysm. HEART AND VASCULAR STRUCTURES: No aneurysm. No pericardial effusion. UPPER ABDOMEN: No significant findings. Limited exam. THYROID AND OTHER SOFT TISSUES: No masses. No adenopathy. BONES: Stable mild compression deformities in several vertebrae. HARDWARE: Sternotomy wires and coronary bypass markers. OTHER: No other significant findings. IMPRESSION: STABLE CHRONIC EMPHYSEMATOUS CHANGES AND CHRONIC SCARRING IN THE RIGHT LUNG BASE. NO AC GHISLAINE FINDING ON NON-CONTRASTED CHEST CT. TECHNICAL DOCUMENTATION: JOB ID: [id number] Quality ID # [id number]: Final reports with documentation of one or more dose reduction techniques (e.g., Au tomated exposure control, adjustment of the mA and/or kV according to patient size, use of iterative reconstruction technique) 2010 [email or web address]- All Rights Reserved Reading location - IP/workstation name: [email or web address]
--- NOTE | 2019-11-30 12:42 | XCELERA REPORT ---
[address] [address] Transthoracic Echocardiogram Report Name: JOSE L FAROOQ Age: 69 yrs Gender: Male : 1950 Patient Status: Inpatient Patient Location: [address] [place], [place] [id number] Study Date: 11/29/2019 06:55 PM History: CHF CABG Height: 67 in Weight: 119 lb BSA: 1.6 m2 Procedure: A complete two-dimensional transthoracic echocardiogram was performed (2D, M-mode, spectral and color flow Doppler). The study was technically difficult with many images being suboptimal in quality. Reason For Study: CHF Ordering Physician: BUTCH BAILEY Performed By: Alize Tamez Interpretation Summary Left ventricular systolic function is mildly reduced. The Ejection Fraction estimate is 40-45% The right ventricle is mild to moderately dilated. There is a mild to moderate amount of mitral regurgitation There is no aortic valve stenosis There is a trace amount of aortic regurgitation There is a mild amount of tricuspid regurgitation There is mild pulmonary hypertension by echo There is no pericardial effusion. MMode/2D Measurements & Calculations RVDd: 4.6 cm LVIDd: 5.4 cm FS: 22.9 % Ao root diam: 3.2 cm IVSd: 0.80 cm LVIDs: 4.2 cm EDV(Teich): 143.9 ml Ao root area: 8.0 cm2 LVPWd: 0.89 cm ESV(Teich): 78.3 ml LA dimension: 5.0 cm EF(Teich): 45.6 % LVOT diam: 1.7 cm LVOT area: 2.3 cm2 Doppler Measurements & Calculations MV E max samuel: MV P1/2t max samuel: Ao V2 max: AI max samuel: 157.9 cm/sec 174.6 cm/sec 123.7 cm/sec 129.1 cm/sec MV A max samuel: MV P1/2t: 76.6 msec Ao max PG: AI max P.7 mmHg 40.6 cm/sec MVA(P1/2t): 2.9 cm2 6.1 mmHg AI dec slope: MV E/A: 3.9 MV dec slope: WILMA(V,D): 1.7 cm2 120.6 cm/sec2 AI P1/2t: 668.1 cm/sec2 313.4 msec MV dec time: 0.18 sec LV V1 max PG: PA V2 max: PI end-d samuel: TR max samuel: 3.5 mmHg 65.1 cm/sec 130.3 cm/sec 279.1 cm/sec LV V1 max: PA max P.7 mmHg TR max P.2 cm/sec 31.2 mmHg AV P1/2t-pr_phl: MV P1/2t-pr_phl: 313.4 msec 76.6 msec Left Ventricle The left ventricle is borderline dilated. There is borderline concentric left ventricular hypertrophy. Left ventricular systolic function is mildly reduced. The Ejection Fraction estimate is 40-45%. Doppler measurements suggest reversible restrictive left ventricular relaxation, which is associated with grade III/IV or moderate diastolic dysfunction. There is mild global hypokinesis of the left ventricle. Right Ventricle The right ventricle is mild to moderately dilated. The right ventricular systolic function is moderately reduced. Atria The right atrium is mildly dilated. The left atrium is mildly dilated. Mitral Valve Calcified mitral apparatus. There is mild mitral stenosis. There is a mild to moderate amount of mitral regurgitation. Aortic Valve The aortic valve is calcified. The aortic valve is sclerotic and shows some degree of functional abnormality. There is no aortic valve stenosis. There is a trace amount of aortic regurgitation. Tricuspid Valve The tricuspid valve is not well visualized, but is grossly normal. There is a mild amount of tricuspid regurgitation. Right ventricular systolic pressure is estimated to be elevated at 30-40mmHg. There is mild pulmonary hypertension by echo. Pulmonic Valve The pulmonic valve is not well visualized. There is a mild amount of pulmonic regurgitation. Great Vessels There is aortic root sclerosis/calcification. The aortic root is normal size. The inferior vena cava appeared normal and decreased > 50% with respiration (RAP 5-10 mmHg). Effusions There is no pericardial effusion. : BUTCH BAILEY Anil
[2019-11-30 13:48] LABS: TROPONIN I < 0.012 ng/mL
[2019-11-30] MEDS: ONDANSETRON HCL 8 MG TABLET PO PRN (16:27)
[2019-11-30] MEDS: PHARMACY COMMUNICATION ORDER MC SCH (17:38)
[2019-11-30] MEDS: TAMSULOSIN HCL 0.4 MG CAP.SR.24H PO SCH (17:38)
--- NOTE | 2019-11-30 19:15 | EKG REPORT ---
SEVERITY:- ABNORMAL ECG - SINUS RHYTHM VENTRICULAR BIGEMINY RIGHT BUNDLE BRANCH BLOCK PROBABLE INFERIOR INFARCT, AGE INDETERMINATE : Confirmed by: Gianna Brandt MD 30-Nov-2019 19:14:16
[2019-11-30] MEDS: ENOXAPARIN SODIUM INJ 40 MG/0.4 ML DISP.SYRIN SUBCUT SCH (21:17)
[2019-11-30] MEDS: ATORVASTATIN CALCIUM 20 MG TABLET PO SCH (21:17)
[2019-11-30] MEDS: METOPROLOL SUCCINATE 25 MG TAB.SR.24H PO SCH (21:18)
--- NOTE | 2019-11-30 21:45 | PDOC PROGRESS REPORT ---
Subjective Progress Note for:: 11/30/19 Subjective:: Patient seen by the bedside, he was admitted yesterday for the management of acute systolic heart failure Reason For Visit: ACUTE SYSTOLIC HEART FAILURE, MICROCYTIC ANEMIA Physical Exam Vital Signs: Temp Pulse Resp BP Pulse Ox 97.6 F 65 18 111/49 L 92 11/30/19 15:18 11/30/19 15:18 11/30/19 15:18 11/30/19 15:18 11/30/19 15:18 Intake & Output 11/29/19 11/30/19 12/01/19 06:59 06:59 06:59 Intake Total 1370 Output Total 625 950 Balance -625 420 Weight 54.2 kg General appearance: PRESENT: no acute distress Head exam: PRESENT: atraumatic, normocephalic Eye exam: PRESENT: conjunctiva pink, EOMI, PERRLA Ear exam: PRESENT: normal external ear exam Mouth exam: PRESENT: moist, tongue midline Neck exam: PRESENT: full ROM Respiratory exam: PRESENT: clear to auscultation josselyn Cardiovascular exam: PRESENT: RRR, +S1, +S2 Pulses: PRESENT: normal dorsalis pedis pul, +2 pedal pulses bilateral Vascular exam: PRESENT: normal capillary refill GI/Abdominal exam: PRESENT: normal bowel sounds, soft Rectal exam: PRESENT: deferred Neurological exam: PRESENT: alert, CN II-XII grossly intact Psychiatric exam: PRESENT: appropriate affect, normal mood Skin exam: PRESENT: dry, intact, warm Results Laboratory Results: 11/29/19 18:14 11/30/19 05:13 11/30/19 11/30/19 11/30/19 03:35 05:13 05:13 Sodium 136.6 L Potassium 4.3 Chloride 103 Carbon Dioxide 24 Anion Gap 10 BUN 16 Creatinine 0.93 Est GFR ( Amer) > 60 Glucose 91 Calcium 8.8 Magnesium 2.2 Total Bilirubin 1.0 AST 44 Alkaline Phosphatase 51 Total Protein 6.8 Albumin 3.7 Urine Color YELLOW Urine Appearance CLEAR Urine pH 7.0 Ur Specific [place] 1.009 Urine Protein NEGATIVE Urine Glucose (UA) NEGATIVE Urine Ketones NEGATIVE Urine Blood NEGATIVE Urine Nitrite NEGATIVE Ur Leukocyte Esterase NEGATIVE Urine WBC (Auto) 0 Urine RBC (Auto) 0 11/29/19 11/29/19 11/29/19 18:14 21:16 21:16 Creatine Kinase 750 H CK-MB (CK-2) 13.70 H Troponin I < 0.012 NT-Pro-B Natriuret Pep 5020 H 11/30/19 11/30/19 11/30/19 05:13 05:13 13:02 Creatine Kinase 486 H 476 H CK-MB (CK-2) 8.94 H Troponin I 0.012 NT-Pro-B Natriuret Pep 11/30/19 13:02 Creatine Kinase CK-MB (CK-2) 11.50 H Troponin I < 0.012 NT-Pro-B Natriuret Pep Impressions: Chest X-Ray 11/29/19 00:00 IMPRESSION: Cardiomegaly without anthony pulmonary edema. Chest CT 11/30/19 00:00 IMPRESSION: STABLE CHRONIC EMPHYSEMATOUS CHANGES AND CHRONIC SCARRING IN THE RIGHT LUNG BASE. NO ACUTE FINDING ON NON-CONTRASTED CHEST CT. Assessment & Plan - Diagnosis (1) Acute systolic heart failure Is this a current diagnosis for this admission?: Yes Plan: Continue anti-CHF regimen, Entresto, metoprolol (2) Iron deficiency anemia Qualifiers: Iron deficiency anemia type: chronic blood loss Qualified Code(s): D50.0 - Iron deficiency anemia secondary to blood loss (chronic) Is this a current diagnosis for this admission?: Yes Plan: Patient received the first dose of Injectafer, the second dose will be due in 7 days (3) COPD (chronic obstructive pulmonary disease) Qualifiers: COPD type: unspecified COPD Qualified Code(s): J44.9 - Chronic obstructive pulmonary disease, unspecified Is this a current diagnosis for this admission?: Yes (4) CAD (coronary artery disease) Qualifiers: Coronary Disease-Associated Artery/Lesion type: [place] artery [place] vs. transplanted heart: [place] heart Associated angina: without angina Qualified Code(s): I25.10 - Atherosclerotic heart disease of [place] coronary artery without angina pectoris Is this a current diagnosis for this admission?: Yes - Time Time Spent with patient: 35 or more minutes Level of Care: IMCU Medications reviewed and adjusted accordingly: Yes - Plan Summary Plan Summary: I spoke to the patient spouse about patient's condition, continue treatment
[2019-11-30 22:01] LABS: HEMATOCRIT 30.5 % (37.9-51.0); HEMOGLOBIN 9.4 g/dL (13.5-17.0); MEAN CORPUSCULAR HEMOGLOBIN 22.1 pg (27.0-33.4); MEAN CORPUSCULAR HGB CONC 30.9 g/dL (32.0-36.0); MEAN CORPUSCULAR VOLUME 72 fl (80-97); PLATELET COUNT 241 10^3/uL (150-450); RED BLOOD COUNT 4.27 10^6/uL (4.35-5.55); RED CELL DISTRIBUTION WIDTH 20.1 % (11.5-14.0); WHITE BLOOD COUNT 7.1 10^3/uL (4.0-10.5)
[2019-11-30 22:20] LABS: ALBUMIN 4.1 g/dL (3.5-5.0); ALKALINE PHOSPHATASE 55 U/L (38-126); ANION GAP 10 (5-19); ASPARTATE AMINO TRANSFERASE 42 U/L (17-59); BILIRUBIN,DIRECT 0.3 mg/dL (0.0-0.4); BILIRUBIN,TOTAL 0.6 mg/dL (0.2-1.3); BLOOD UREA NITROGEN 16 mg/dL (7-20); CALCIUM 9.1 mg/dL (8.4-10.2); CARBON DIOXIDE 25 mmol/L (22-30); CHLORIDE 103 mmol/L (98-107); GLUCOSE 113 mg/dL (75-110); POTASSIUM 4.4 mmol/L (3.6-5.0)
[2019-11-30 22:35] LABS: ABSOLUTE LYMPHOCYTES# (MANUAL) 2.2 10^3/uL (0.5-4.7); ABSOLUTE MONOCYTES # (MANUAL) 0.6 10^3/uL (0.1-1.4); BASOPHILS % (MANUAL) 0 % (0-2); EOSINOPHILS % (MANUAL) 4 % (0-6); LYMPHOCYTES % (MANUAL) 31 % (13-45); MONOCYTES % (MANUAL) 9 % (3-13); SEGMENTED NEUTROPHILS % (MAN) 56 % (42-78); TOTAL CELLS COUNTED 100
[2019-11-30 22:36] LABS: ANISOCYTOSIS 2+; BURR CELLS 1+; OVALOCYTES SLIGHT; PLATELET COMMENT ADEQUATE; POIKILOCYTOSIS 1+; TARGET CELLS SLIGHT
[2019-11-30 22:37] LABS: HYPOCHROMASIA SLIGHT
[2019-12-01] MEDS: NORMAL SALINE 250 ML with FUROSEMIDE 250 MG IV PRN ×4 (01:14→01:18)
[2019-12-01] MEDS: PANTOPRAZOLE SODIUM 20 MG TABLET.DR PO SCH (05:38)
[2019-12-01 06:37] LABS: HEMATOCRIT 29.7 % (37.9-51.0); HEMOGLOBIN 9.1 g/dL (13.5-17.0); MEAN CORPUSCULAR HGB CONC 30.6 g/dL (32.0-36.0); MEAN CORPUSCULAR VOLUME 72 fl (80-97); PLATELET COUNT 245 10^3/uL (150-450); RED BLOOD COUNT 4.14 10^6/uL (4.35-5.55); RED CELL DISTRIBUTION WIDTH 19.7 % (11.5-14.0); WHITE BLOOD COUNT 7.2 10^3/uL (4.0-10.5)
[2019-12-01 07:03] LABS: ABSOLUTE LYMPHOCYTES# (MANUAL) 1.9 10^3/uL (0.5-4.7); ABSOLUTE MONOCYTES # (MANUAL) 0.9 10^3/uL (0.1-1.4); BAND NEUTROPHILS % (MANUAL) 2 % (3-5); BASOPHILS % (MANUAL) 0 % (0-2); EOSINOPHILS % (MANUAL) 1 % (0-6); LYMPHOCYTES % (MANUAL) 26 % (13-45); MONOCYTES % (MANUAL) 12 % (3-13); SEGMENTED NEUTROPHILS % (MAN) 59 % (42-78); TOTAL CELLS COUNTED 100
[2019-12-01 07:04] LABS: ANISOCYTOSIS 2+; BURR CELLS 1+; HYPOCHROMASIA 1+; PLATELET COMMENT ADEQUATE; POLYCHROMASIA 1+
[2019-12-01 07:40] LABS: ALBUMIN 3.7 g/dL (3.5-5.0); ALKALINE PHOSPHATASE 55 U/L (38-126); ANION GAP 7 (5-19); ASPARTATE AMINO TRANSFERASE 37 U/L (17-59); BILIRUBIN,DIRECT 0.1 mg/dL (0.0-0.4); BILIRUBIN,TOTAL 0.5 mg/dL (0.2-1.3); BLOOD UREA NITROGEN 20 mg/dL (7-20); CALCIUM 8.9 mg/dL (8.4-10.2); CARBON DIOXIDE 28 mmol/L (22-30); CHLORIDE 102 mmol/L (98-107); GLUCOSE 108 mg/dL (75-110); POTASSIUM 4.8 mmol/L (3.6-5.0); TOTAL PROTEIN 6.9 g/dL (6.3-8.2)
[2019-12-01] MEDS: SACUBITRIL/VALSARTAN 49 MG/51 MG TABLET PO SCH ×2 (09:23→17:46)
[2019-12-01] MEDS: MORPHINE SULFATE SR 30 MG TABLET PO SCH ×2 (09:23→22:10)
[2019-12-01] MEDS: ONDANSETRON HCL 8 MG TABLET PO PRN ×2 (09:23→19:20)
[2019-12-01] MEDS: UMECLIDINIUM BROMIDE 62.5 MCG/DOSE IH SCH (09:23)
[2019-12-01] MEDS: FLUTICASONE/VILANTEROL 200-25 MCG/DOSE IH SCH (09:23)
--- NOTE | 2019-12-01 14:37 | PDOC PROGRESS REPORT ---
Subjective Progress Note for:: 12/01/19 Subjective:: Patient seen by the bedside, he was admitted for the management of acute systolic heart failure, iron deficiency anemia. He received a dose of Injectafer yesterday, he will require another dose in 7 days this could be given outpatient. Patient presently on intravenous furosemide infusion, he diuresed quite well the transthoracic echocardiogram demonstrated estimated EF about 40% patient already started on ARNI Reason For Visit: ACUTE SYSTOLIC HEART FAILURE, MICROCYTIC ANEMIA Physical Exam Vital Signs: Temp Pulse Resp BP Pulse Ox 97.8 F 73 18 90/62 L 91 L 12/01/19 12:04 12/01/19 12:04 12/01/19 12:04 12/01/19 12:04 12/01/19 12:04 Intake & Output 11/30/19 12/01/19 12/02/19 06:59 06:59 06:59 Intake Total 1935 240 Output Total 625 1350 300 Balance -625 585 -60 Weight 54.2 kg 54.5 kg General appearance: PRESENT: no acute distress, well-developed, well-nourished Head exam: PRESENT: atraumatic, normocephalic Eye exam: PRESENT: conjunctiva pink, EOMI, PERRLA Ear exam: PRESENT: normal external ear exam Mouth exam: PRESENT: moist, tongue midline Neck exam: PRESENT: full ROM Respiratory exam: PRESENT: clear to auscultation josselyn Cardiovascular exam: PRESENT: RRR, +S1, +S2 Pulses: PRESENT: normal dorsalis pedis pul, +2 pedal pulses bilateral Vascular exam: PRESENT: normal capillary refill GI/Abdominal exam: PRESENT: normal bowel sounds, soft Rectal exam: PRESENT: deferred Neurological exam: PRESENT: alert, CN II-XII grossly intact. ABSENT: motor sensory deficit Psychiatric exam: PRESENT: appropriate affect, normal mood Skin exam: PRESENT: dry, intact, warm Results Laboratory Results: 12/01/19 05:48 12/01/19 05:48 11/30/19 11/30/19 12/01/19 21:46 21:46 05:48 WBC 7.1 7.2 RBC 4.27 L 4.14 L Hgb 9.4 L 9.1 L Hct 30.5 L 29.7 L MCV 72 L 72 L MCH 22.1 L 22.0 L MCHC 30.9 L 30.6 L RDW 20.1 H 19.7 H Plt Count 241 245 Seg Neutrophils % Not Reportable Not Reportable Sodium 137.6 Potassium 4.4 Chloride 103 Carbon Dioxide 25 Anion Gap 10 BUN 16 Creatinine 0.98 Est GFR ( Amer) > 60 Glucose 113 H Calcium 9.1 Total Bilirubin 0.6 AST 42 Alkaline Phosphatase 55 Total Protein 7.0 Albumin 4.1 12/01/19 05:48 WBC RBC Hgb Hct MCV MCH MCHC RDW Plt Count Seg Neutrophils % Sodium 137.0 Potassium 4.8 Chloride 102 Carbon Dioxide 28 Anion Gap 7 BUN 20 Creatinine 1.19 Est GFR ( Amer) > 60 Glucose 108 Calcium 8.9 Total Bilirubin 0.5 AST 37 Alkaline Phosphatase 55 Total Protein 6.9 Albumin 3.7 11/29/19 11/29/19 11/29/19 18:14 21:16 21:16 Creatine Kinase 750 H CK-MB (CK-2) 13.70 H Troponin I < 0.012 NT-Pro-B Natriuret Pep 5020 H 11/30/19 11/30/19 11/30/19 05:13 05:13 13:02 Creatine Kinase 486 H 476 H CK-MB (CK-2) 8.94 H Troponin I 0.012 NT-Pro-B Natriuret Pep 11/30/19 13:02 Creatine Kinase CK-MB (CK-2) 11.50 H Troponin I < 0.012 NT-Pro-B Natriuret Pep Impressions: Chest X-Ray 11/29/19 00:00 IMPRESSION: Cardiomegaly without anthony pulmonary edema. Chest CT 11/30/19 00:00 IMPRESSION: STABLE CHRONIC EMPHYSEMATOUS CHANGES AND CHRONIC SCARRING IN THE RIGHT LUNG BASE. NO ACUTE FINDING ON NON-CONTRASTED CHEST CT. Assessment & Plan - Diagnosis (1) Acute systolic heart failure Is this a current diagnosis for this admission?: Yes Plan: Discontinue IV furosemide infusion, start p.o. furosemide continue Entresto continue evidence-based beta-carlos manuel (2) Iron deficiency anemia Qualifiers: Iron deficiency anemia type: chronic blood loss Qualified Code(s): D50.0 - Iron deficiency anemia secondary to blood loss (chronic) Is this a current diagnosis for this admission?: Yes (3) COPD (chronic obstructive pulmonary disease) Qualifiers: COPD type: unspecified COPD Qualified Code(s): J44.9 - Chronic obstructive pulmonary disease, unspecified Is this a current diagnosis for this admission?: Yes (4) CAD (coronary artery disease) Qualifiers: Coronary Disease-Associated Artery/Lesion type: [place] artery [place] vs. transplanted heart: [place] heart Associated angina: without angina Qualified Code(s): I25.10 - Atherosclerotic heart disease of [place] coronary artery without angina pectoris Is this a current diagnosis for this admission?: Yes - Time Time Spent with patient: 35 or more minutes Level of Care: IMCU Medications reviewed and adjusted accordingly: Yes
[2019-12-01] MEDS: FUROSEMIDE 40 MG TABLET PO SCH (14:58)
[2019-12-01] MEDS: TAMSULOSIN HCL 0.4 MG CAP.SR.24H PO SCH (17:46)
[2019-12-01] MEDS: PHARMACY COMMUNICATION ORDER MC SCH (18:29)
[2019-12-01] MEDS: METOPROLOL SUCCINATE 25 MG TAB.SR.24H PO SCH (22:09)
[2019-12-01] MEDS: ATORVASTATIN CALCIUM 20 MG TABLET PO SCH (22:10)
[2019-12-01] MEDS: ENOXAPARIN SODIUM INJ 40 MG/0.4 ML DISP.SYRIN SUBCUT SCH (22:11)
[2019-12-01] MEDS: ONDANSETRON HCL INJ/PF 4 MG/2 ML SDV IV PRN (22:45)
--- NOTE | 2019-12-01 23:05 | PDOC PROGRESS REPORT ---
Subjective Progress Note for:: 12/01/19 Subjective:: Doing much better. Feels better. Reason For Visit: ACUTE SYSTOLIC HEART FAILURE, MICROCYTIC ANEMIA Physical Exam Vital Signs: Temp Pulse Resp BP Pulse Ox 97.8 F 73 18 90/62 L 91 L 12/01/19 12:04 12/01/19 12:04 12/01/19 12:04 12/01/19 12:04 12/01/19 12:04 Intake & Output 11/30/19 12/01/19 12/02/19 06:59 06:59 06:59 Intake Total 1935 240 Output Total 625 1350 300 Balance -625 585 -60 Weight 54.2 kg 54.5 kg General appearance: PRESENT: no acute distress, cooperative, thin, well- developed, well-nourished Head exam: PRESENT: atraumatic, normocephalic Eye exam: PRESENT: conjunctiva pale, EOMI Mouth exam: PRESENT: moist Respiratory exam: PRESENT: crackles, decreased breath sounds, symmetrical Cardiovascular exam: PRESENT: RRR, +S1, +S2 Pulses: PRESENT: normal radial pulses GI/Abdominal exam: PRESENT: soft Rectal exam: PRESENT: deferred Neurological exam: PRESENT: alert, awake, oriented to person, oriented to place, oriented to time Skin exam: PRESENT: dry, intact, pallor Results Laboratory Results: 12/01/19 05:48 12/01/19 05:48 11/30/19 11/30/19 12/01/19 21:46 21:46 05:48 WBC 7.1 7.2 RBC 4.27 L 4.14 L Hgb 9.4 L 9.1 L Hct 30.5 L 29.7 L MCV 72 L 72 L MCH 22.1 L 22.0 L MCHC 30.9 L 30.6 L RDW 20.1 H 19.7 H Plt Count 241 245 Seg Neutrophils % Not Reportable Not Reportable Sodium 137.6 Potassium 4.4 Chloride 103 Carbon Dioxide 25 Anion Gap 10 BUN 16 Creatinine 0.98 Est GFR ( Amer) > 60 Glucose 113 H Calcium 9.1 Total Bilirubin 0.6 AST 42 Alkaline Phosphatase 55 Total Protein 7.0 Albumin 4.1 12/01/19 05:48 WBC RBC Hgb Hct MCV MCH MCHC RDW Plt Count Seg Neutrophils % Sodium 137.0 Potassium 4.8 Chloride 102 Carbon Dioxide 28 Anion Gap 7 BUN 20 Creatinine 1.19 Est GFR ( Amer) > 60 Glucose 108 Calcium 8.9 Total Bilirubin 0.5 AST 37 Alkaline Phosphatase 55 Total Protein 6.9 Albumin 3.7 11/29/19 11/29/19 11/29/19 18:14 21:16 21:16 Creatine Kinase 750 H CK-MB (CK-2) 13.70 H Troponin I < 0.012 NT-Pro-B Natriuret Pep 5020 H 11/30/19 11/30/19 11/30/19 05:13 05:13 13:02 Creatine Kinase 486 H 476 H CK-MB (CK-2) 8.94 H Troponin I 0.012 NT-Pro-B Natriuret Pep 11/30/19 13:02 Creatine Kinase CK-MB (CK-2) 11.50 H Troponin I < 0.012 NT-Pro-B Natriuret Pep Impressions: Chest X-Ray 11/29/19 00:00 IMPRESSION: Cardiomegaly without anthony pulmonary edema. Chest CT 11/30/19 00:00 IMPRESSION: STABLE CHRONIC EMPHYSEMATOUS CHANGES AND CHRONIC SCARRING IN THE RIGHT LUNG BASE. NO ACUTE FINDING ON NON-CONTRASTED CHEST CT. Assessment & Plan - Diagnosis (1) Anemia Qualifiers: Anemia type: iron deficiency Is this a current diagnosis for this admission?: Yes Plan: Receiving iron infusion. Correction of anemia Probable hyper dynamic circulation on account of anemia with resultant heart failure. Component of LV dysfunction also exist. (2) CAD (coronary artery disease) Qualifiers: Coronary Disease-Associated Artery/Lesion type: [place] artery [place] vs. transplanted heart: [place] heart Associated angina: without angina Qualified Code(s): I25.10 - Atherosclerotic heart disease of [place] coronary artery without angina pectoris Is this a current diagnosis for this admission?: Yes Plan: Stable. Current presentation does not suggest ongoing myocardial ischemia Given anemia should try to keep hemoglobin above 8 g/dL given coronary artery disease and CABG. May be reasonable to hold off on antiplatelet therapy until anemia is corrected (3) CHF (congestive heart failure), NYHA class II Qualifiers: Congestive heart failure type: systolic Congestive heart failure chronicity: acute on chronic Qualified Code(s): I50.23 - Acute on chronic systolic (congestive) heart failure Is this a current diagnosis for this admission?: Yes Plan: Improving. Especially with correction of anemia Continue guideline directed medical therapy for congestive heart failure and LV dysfunction Echocardiogram shows mildly reduced left ventricular function. Continue ARNI
[2019-12-02 00:51] LABS: ANION GAP 8 (5-19); BLOOD UREA NITROGEN 17 mg/dL (7-20); CALCIUM 8.8 mg/dL (8.4-10.2); CARBON DIOXIDE 27 mmol/L (22-30); CHLORIDE 100 mmol/L (98-107); GLUCOSE 122 mg/dL (75-110); POTASSIUM 4.4 mmol/L (3.6-5.0)
[2019-12-02 01:02] LABS: HEMATOCRIT 30.3 % (37.9-51.0); HEMOGLOBIN 9.3 g/dL (13.5-17.0); MEAN CORPUSCULAR HEMOGLOBIN 22.1 pg (27.0-33.4); MEAN CORPUSCULAR HGB CONC 30.8 g/dL (32.0-36.0); MEAN CORPUSCULAR VOLUME 72 fl (80-97); PLATELET COUNT 253 10^3/uL (150-450); RED BLOOD COUNT 4.22 10^6/uL (4.35-5.55); RED CELL DISTRIBUTION WIDTH 19.8 % (11.5-14.0); WHITE BLOOD COUNT 8.3 10^3/uL (4.0-10.5)
[2019-12-02 01:35] LABS: ABSOLUTE LYMPHOCYTES# (MANUAL) 1.4 10^3/uL (0.5-4.7); ABSOLUTE MONOCYTES # (MANUAL) 0.6 10^3/uL (0.1-1.4); BASOPHILS % (MANUAL) 1 % (0-2); EOSINOPHILS % (MANUAL) 1 % (0-6); LYMPHOCYTES % (MANUAL) 17 % (13-45); MONOCYTES % (MANUAL) 7 % (3-13); SEGMENTED NEUTROPHILS % (MAN) 74 % (42-78); TOTAL CELLS COUNTED 100
[2019-12-02 01:36] LABS: ANISOCYTOSIS 1+; POIKILOCYTOSIS 1+; TOXIC GRANULATION 1+
[2019-12-02 01:37] LABS: BURR CELLS SLIGHT; OVALOCYTES SLIGHT; PLATELET COMMENT ADEQUATE; TARGET CELLS SLIGHT; TEAR DROP CELLS SLIGHT
[2019-12-02] MEDS ORDERED: ALBUTEROL SULFATE HFA (90 MCG/PUFF) 8 GM MDI IH ONE (02:54)
--- NOTE | 2019-12-02 03:59 | RADIOLOGY REPORT (SQ) ---
EXAM DESCRIPTION: XR CHEST 1 VIEW COMPLETED DATE/TME: 12/02/2019 03:05 CLINICAL HISTORY: 69 years, Male, shortness of breath COMPARISON: 11/29/2019 chest NUMBER OF VIEWS: 1 TECHNIQUE: Portable chest LIMITATIONS: None. FINDINGS: Cardiac megaly. Post surgical changes of the mediastinum. Airspace opacity over the left lung base, new from the prior. Tiny right effusion and/or pleural thickening. Minimal right basilar airspace opacity. No pneumothorax. Osteopenia. Atheromatous change thoracic aorta IMPRESSION: New bibasilar airspace opacities. Findings are worrisome for pneumonia. copyright 2010 [email or web address]- All Rights Reserved
[2019-12-02] MEDS: PANTOPRAZOLE SODIUM 20 MG TABLET.DR PO SCH (05:35)
[2019-12-02] MEDS: LEVOFLOXACIN 750 MG TABLET PO SCH (05:50)
[2019-12-02 06:32] LABS: ALBUMIN 3.8 g/dL (3.5-5.0); ALKALINE PHOSPHATASE 61 U/L (38-126); ANION GAP 10 (5-19); ASPARTATE AMINO TRANSFERASE 33 U/L (17-59); BILIRUBIN,DIRECT 0.1 mg/dL (0.0-0.4); BILIRUBIN,TOTAL 0.6 mg/dL (0.2-1.3); BLOOD UREA NITROGEN 16 mg/dL (7-20); CALCIUM 8.6 mg/dL (8.4-10.2); CARBON DIOXIDE 25 mmol/L (22-30); CHLORIDE 100 mmol/L (98-107); GLUCOSE 110 mg/dL (75-110); POTASSIUM 4.4 mmol/L (3.6-5.0); TOTAL PROTEIN 6.8 g/dL (6.3-8.2)
[2019-12-02] MEDS: FUROSEMIDE 40 MG TABLET PO SCH (09:29)
[2019-12-02] MEDS: MORPHINE SULFATE SR 30 MG TABLET PO SCH (09:29)
[2019-12-02] MEDS: SACUBITRIL/VALSARTAN 49 MG/51 MG TABLET PO SCH (09:30)
[2019-12-02] MEDS: UMECLIDINIUM BROMIDE 62.5 MCG/DOSE IH SCH (09:30)
[2019-12-02] MEDS: FLUTICASONE/VILANTEROL 200-25 MCG/DOSE IH SCH (09:30)
[2019-12-02] MEDS ORDERED: NORMAL SALINE 1000 ML 1,000 ML IV PRN ×2 (13:06→16:14)
--- NOTE | 2019-12-02 13:12 | PDOC PROGRESS REPORT ---
Subjective Progress Note for:: 12/02/19 Subjective:: Patient seen by the bedside, he had episode of fever with temperature 101, chest x-ray that was done demonstrated airspace opacity over the left lung base new from prior, tiny right effusion and/or pleural thickening, blood pressure is low, the oxygen saturation was low at 70%. The degree of the airspace opacity is not large enough to cause such a drop in the oxygen saturation, we need to rule out pulmonary embolism CTA chest to be ordered, give some fluids normal saline at 50 cc/h for 250 to mitigate against contrast-induced nephropathy.CT angiogram of the lung demonstrated new multifocal patchy nodular airspace opacities throughout the left lower lobe with more dense consolidation in the inferior posterior segments. Similar nodular opacities in the right lower lobe no pleural effusion, this is new nosocomial pneumonia, patient be started on medication to cover MRSA, gram-negative and gram-positive organisms, we need to rule out COVID though unlikely Reason For Visit: ACUTE SYSTOLIC HEART FAILURE, MICROCYTIC ANEMIA Physical Exam Vital Signs: Temp Pulse Resp BP Pulse Ox 98.4 F 82 20 70/40 L 95 12/02/19 12:05 12/02/19 12:05 12/02/19 12:05 12/02/19 12:05 12/02/19 12:05 Intake & Output 12/01/19 12/02/19 12/03/19 06:59 06:59 06:59 Intake Total 1935 1034 Output Total 1350 1250 Balance 585 -216 Weight 54.5 kg 52.3 kg General appearance: PRESENT: no acute distress Respiratory exam: PRESENT: crackles Cardiovascular exam: PRESENT: +S1, +S2 GI/Abdominal exam: PRESENT: soft Neurological exam: PRESENT: alert Results Laboratory Results: 12/02/19 00:20 12/02/19 05:13 12/02/19 12/02/19 12/02/19 00:20 00:20 05:13 WBC 8.3 RBC 4.22 L Hgb 9.3 L Hct 30.3 L MCV 72 L MCH 22.1 L MCHC 30.8 L RDW 19.8 H Plt Count 253 Seg Neutrophils % Not Reportable Sodium 135.0 L 134.6 L Potassium 4.4 4.4 Chloride 100 100 Carbon Dioxide 27 25 Anion Gap 8 10 BUN 17 16 Creatinine 1.05 0.99 Est GFR ( Amer) > 60 > 60 Glucose 122 H 110 Calcium 8.8 8.6 Total Bilirubin 0.6 AST 33 Alkaline Phosphatase 61 Total Protein 6.8 Albumin 3.8 11/29/19 11/29/19 11/29/19 18:14 21:16 21:16 Creatine Kinase 750 H CK-MB (CK-2) 13.70 H Troponin I < 0.012 NT-Pro-B Natriuret Pep 5020 H 11/30/19 11/30/19 11/30/19 05:13 05:13 13:02 Creatine Kinase 486 H 476 H CK-MB (CK-2) 8.94 H Troponin I 0.012 NT-Pro-B Natriuret Pep 11/30/19 13:02 Creatine Kinase CK-MB (CK-2) 11.50 H Troponin I < 0.012 NT-Pro-B Natriuret Pep Impressions: Chest CT 11/30/19 00:00 IMPRESSION: STABLE CHRONIC EMPHYSEMATOUS CHANGES AND CHRONIC SCARRING IN THE RIGHT LUNG BASE. NO ACUTE FINDING ON NON-CONTRASTED CHEST CT. Chest X-Ray 12/02/19 03:05 IMPRESSION: New bibasilar airspace opacities. Findings are worrisome for pneumonia. copyright 2010 [employer]- All Rights Reserved Assessment & Plan - Diagnosis (1) Acute systolic heart failure Is this a current diagnosis for this admission?: Yes (2) Iron deficiency anemia Qualifiers: Iron deficiency anemia type: chronic blood loss Qualified Code(s): D50.0 - Iron deficiency anemia secondary to blood loss (chronic) Is this a current diagnosis for this admission?: Yes (3) COPD (chronic obstructive pulmonary disease) Qualifiers: COPD type: unspecified COPD Qualified Code(s): J44.9 - Chronic obstructive pulmonary disease, unspecified Is this a current diagnosis for this admission?: Yes (4) CAD (coronary artery disease) Qualifiers: Coronary Disease-Associated Artery/Lesion type: [place] artery [place] vs. transplanted heart: [place] heart Associated angina: without angina Qualified Code(s): I25.10 - Atherosclerotic heart disease of [place] coronary artery without angina pectoris Is this a current diagnosis for this admission?: Yes (5) Nosocomial pneumonia Is this a current diagnosis for this admission?: Yes Plan: Patient with hospital-acquired pneumonia, empiric treatment to cover MRSA gram- positive, gram-negative organisms, patient to be treated meropenem and Zyvox he has allergy to penicillin, meropenem recovered anaerobes gram-positive gram- negative, Zyvox is preferred over vancomycin because of potential of nephr otoxicity with vancomycin recently in this patient who has been on diuretics since admission - Time Time Spent with patient: 35 or more minutes Level of Care: IMCU
[2019-12-02] MEDS ORDERED: NORMAL SALINE 250 ML IV ONE (16:30)
[2019-12-02] MEDS: PHARMACY COMMUNICATION ORDER MC SCH (16:59)
--- NOTE | 2019-12-02 17:15 | RADIOLOGY REPORT (SQ) ---
EXAM DESCRIPTION: CTA CHEST IMAGES COMPLETED DATE/TIME: 12/02/2019 4:47 pm REASON FOR STUDY: Elevated D Dimer COMPARISON: 11/30/2019 TECHNIQUE: CT scan of the chest performed using helical scanning technique with dynamic intravenous contrast injection. Images reviewed with lung, soft tissue and bone windows. Reconstructed coronal and sagittal MPR images reviewed. Additional 3 dimensional post-processing performed to develop Maximal Intensity Projection images (VT P). All images stored on PACS. All CT scanners at this facility use dose modulation, iterative reconstruction, and/or weight based d osing when appropriate to reduce radiation dose to as low as reasonably achievable (ALARA). [facility]: Dose Right [facility]: CareDose [facility]: Dose Right [facility]: Teradose 4D [facility]: [employer] CONTRAST TYPE AND DOSE: 90 mL Isovue 370- low osmolar. Contrast bolus optimized for the pulmonary arteries. Not diagnostic for the aorta. RENAL FUNCTION: GFR > 60. RADIATION DOSE: CT Rad equipment meets quality standard of care and radiation dose reduction techniq ues were employed. CTDIvol: 3.3 - 14.3 mGy. DLP: 539 mGy-cm. . LIMITATIONS: None. FINDINGS: LUNGS AND PLEURA: Nopneumothorax. New multifocal patchy -nodular airspace opacities throu ghout the left lower lobe with more dense consolidation in the inferior-posterior segments. Similar nodular opacities in the right lower lobe. No pleural effusion. Similar chronic interstitial change s and emphysema. AORTA AND GREAT VESSELS: No aneurysm. Contrast bolus not optimized for the aorta. HEART: No pericardial effusion. Prior CABG. PULMONARY ARTERIES: No emboli visualized in the main pulmonary arteries or the segmental branches. HILAR AND MEDIASTINAL STRUCTURES: Similar nodes. HARDWARE: CABG. UPPER ABDOMEN: No acute findings. Limited exam. THYROID AND OTHER SOFT TISSUES: No masses. No adenopathy. BONES: No acute finding. 3D MIPS: Confirm above findings. OTHER: No other significant finding. IMPRESSION: No emboli visualized in the main pulmonary arteries or the segmental branches.New multif ocal patchy -nodular airspace opacities throughout the left lower lobe with more dense consolidation in the inferior-posterior segments. Similar nodular opacities in the right lower lobe. No pleural ef fusion. COMMENT: Quality ID # [id number]: Final reports with documentation of one or more dose reduction techniques (e.g., Automated exposure control, adjustment of the mA and/or kV according to patient size, use of iterative reconstruction technique) TECHNICAL DOCUMENTATION: JOB ID: [id number] [place]-72 2010 [employer]- All Rights Reserved Reading location - IP/workstation name: [email or web address]
[2019-12-02] MEDS: TAMSULOSIN HCL 0.4 MG CAP.SR.24H PO SCH (17:46)
[2019-12-02] MEDS ORDERED: LINEZOLID 600 MG/300 ML RTUPB IV SCH ×2 (18:00→22:00)
[2019-12-02] MEDS ORDERED: MEROPENEM 1 GM in NORMAL SALINE 50 ML IV SCH (18:00)
[2019-12-02] MEDS ORDERED: MEROPENEM 1 GM VIAL IV PRN (18:08)
[2019-12-02] MEDS ORDERED: MEROPENEM 1 GM VIAL ONE ×2 (19:24→19:31)
[2019-12-02] MEDS ORDERED: LINEZOLID 600 MG/300 ML RTUPB IV ONE (19:25)
[2019-12-02] MEDS ORDERED: NORMAL SALINE 500 ML IV ONE (19:30)
[2019-12-02] MEDS ORDERED: DOPAMINE HCL/DEXTROSE 5%-WATER 800 MG/250 ML RTUINJ IV PRN (21:18)
[2019-12-02] MEDS: ENOXAPARIN SODIUM INJ 40 MG/0.4 ML DISP.SYRIN SUBCUT SCH (21:19)
[2019-12-02] MEDS: ATORVASTATIN CALCIUM 20 MG TABLET PO SCH (21:19)
[2019-12-02] MEDS: MEROPENEM 1 GM in NORMAL SALINE 50 ML IV SCH (21:20)
--- NOTE | 2019-12-02 22:45 | EKG REPORT ---
SEVERITY:- ABNORMAL ECG - SINUS TACHYCARDIA IVCD, CONSIDER ATYPICAL RBBB PROBABLE ANTEROSEPTAL INFARCT, AGE INDETERM : Confirmed by: Gianna Brandt MD 02-Dec-2019 22:43:26
[2019-12-02] MEDS ORDERED: DOPAMINE HCL 800 MG/D5W 250 ML IV PRN (23:54)
[2019-12-03] MEDS ORDERED: ACETAMINOPHEN 325 MG TABLET ONE (00:22)
[2019-12-03] MEDS: ONDANSETRON HCL INJ/PF 4 MG/2 ML SDV IV PRN ×3 (00:42→22:04)
[2019-12-03] MEDS: MORPHINE SULFATE SR 30 MG TABLET PO SCH ×2 (00:50→10:00)
[2019-12-03 06:19] LABS: ALBUMIN 3.6 g/dL (3.5-5.0); ALKALINE PHOSPHATASE 59 U/L (38-126); ANION GAP 11 (5-19); ASPARTATE AMINO TRANSFERASE 29 U/L (17-59); BILIRUBIN,DIRECT 0.1 mg/dL (0.0-0.4); BILIRUBIN,TOTAL 0.7 mg/dL (0.2-1.3); BLOOD UREA NITROGEN 28 mg/dL (7-20); CALCIUM 8.5 mg/dL (8.4-10.2); CARBON DIOXIDE 21 mmol/L (22-30); CHLORIDE 99 mmol/L (98-107); GLUCOSE 120 mg/dL (75-110); POTASSIUM 4.4 mmol/L (3.6-5.0); TOTAL PROTEIN 6.5 g/dL (6.3-8.2)
[2019-12-03] MEDS: MEROPENEM 1 GM in NORMAL SALINE 50 ML IV SCH ×3 (06:56→21:54)
[2019-12-03] MEDS: PANTOPRAZOLE SODIUM 20 MG TABLET.DR PO SCH (06:57)
[2019-12-03 08:48] LABS: HEMATOCRIT 29.3 % (37.9-51.0); MEAN CORPUSCULAR HGB CONC 30.8 g/dL (32.0-36.0); MEAN CORPUSCULAR VOLUME 71 fl (80-97); PLATELET COUNT 229 10^3/uL (150-450); RED CELL DISTRIBUTION WIDTH 19.9 % (11.5-14.0)
[2019-12-03 09:13] LABS: ABSOLUTE LYMPHOCYTES# (MANUAL) 1.7 10^3/uL (0.5-4.7); ABSOLUTE MONOCYTES # (MANUAL) 1.2 10^3/uL (0.1-1.4); ANISOCYTOSIS 2+; BASOPHILS % (MANUAL) 0 % (0-2); EOSINOPHILS % (MANUAL) 4 % (0-6); HYPOCHROMASIA SLIGHT; LYMPHOCYTES % (MANUAL) 10 % (13-45); MONOCYTES % (MANUAL) 7 % (3-13); PLATELET COMMENT ADEQUATE; SEGMENTED NEUTROPHILS % (MAN) 79 % (42-78); TARGET CELLS SLIGHT; TEAR DROP CELLS SLIGHT; TOTAL CELLS COUNTED 100
[2019-12-03 09:14] LABS: WHITE BLOOD COUNT 17.3 10^3/uL (4.0-10.5)
[2019-12-03] MEDS: LEVOFLOXACIN 750 MG TABLET PO SCH (09:59)
[2019-12-03] MEDS: UMECLIDINIUM BROMIDE 62.5 MCG/DOSE IH SCH (09:59)
[2019-12-03] MEDS: FLUTICASONE/VILANTEROL 200-25 MCG/DOSE IH SCH (09:59)
[2019-12-03] MEDS ORDERED: PHENTOLAMINE MESYLATE INJ 5 MG VIAL INFIL ONE (10:30)
[2019-12-03] MEDS: LINEZOLID 600 MG/300 ML RTUPB IV SCH ×2 (12:05→23:13)
[2019-12-03 12:54] LABS: APPEARANCE,URINE CLEAR; BILIRUBIN,URINE NEGATIVE (NEGATIVE); COLOR,URINE YELLOW; GLUCOSE, URINE NEGATIVE (NEGATIVE); KETONES,URINE NEGATIVE (NEGATIVE); LEUKOCYTE ESTERASE,URINE NEGATIVE (NEGATIVE); NITRITE,URINE NEGATIVE (NEGATIVE); PROTEIN,URINE NEGATIVE (NEGATIVE); URINE SPECIFIC GRAVITY 1.023; UROBILINOGEN,URINE NEGATIVE mg/dL (<2.0)
[2019-12-03 14:26] LABS: ALBUMIN 3.8 g/dL (3.5-5.0); ALKALINE PHOSPHATASE 59 U/L (38-126); ANION GAP 10 (5-19); ASPARTATE AMINO TRANSFERASE 32 U/L (17-59); BILIRUBIN,DIRECT 0.1 mg/dL (0.0-0.4); BILIRUBIN,TOTAL 0.7 mg/dL (0.2-1.3); BLOOD UREA NITROGEN 26 mg/dL (7-20); CALCIUM 8.9 mg/dL (8.4-10.2); CARBON DIOXIDE 24 mmol/L (22-30); CHLORIDE 97 mmol/L (98-107); GLUCOSE 126 mg/dL (75-110); POTASSIUM 4.4 mmol/L (3.6-5.0); TOTAL PROTEIN 6.9 g/dL (6.3-8.2)
--- NOTE | 2019-12-03 14:29 | PDOC PROGRESS REPORT ---
Subjective Progress Note for:: 12/03/19 Subjective:: Patient feels somewhat better. He was started on antibiotic for possible pneumonia. He did have an increasing oxygen requirement and abnormal chest x- ray suggestive of developing pneumonia. He does not report any melanotic stools today. His fatigue is improved somewhat. Reason For Visit: ACUTE SYSTOLIC HEART FAILURE, MICROCYTIC ANEMIA Physical Exam Vital Signs: Temp Pulse Resp BP Pulse Ox 98.0 F 47 L 16 105/55 L 97 12/03/19 08:25 12/03/19 08:25 12/03/19 08:25 12/03/19 08:25 12/03/19 08:25 Intake & Output 12/02/19 12/03/19 12/04/19 06:59 06:59 06:59 Intake Total 1034 1880 50 Output Total 1250 450 Balance -216 1430 50 Weight 52.3 kg 56.2 kg General appearance: PRESENT: no acute distress, cooperative, thin, well- developed Head exam: PRESENT: atraumatic, normocephalic Eye exam: PRESENT: conjunctiva pale Respiratory exam: PRESENT: crackles, decreased breath sounds, symmetrical, unlabored Cardiovascular exam: PRESENT: RRR, +S1, +S2 - Ectopy heard, other - Healed sternotomy scar Pulses: PRESENT: normal radial pulses GI/Abdominal exam: PRESENT: soft Rectal exam: PRESENT: deferred Neurological exam: PRESENT: alert, awake, oriented to person, oriented to place, oriented to time, oriented to situation Psychiatric exam: PRESENT: appropriate affect Skin exam: PRESENT: dry, intact, normal color Results Laboratory Results: 12/03/19 05:33 12/03/19 05:33 12/03/19 12/03/19 05:33 05:33 WBC 17.3 H D RBC 4.10 L Hgb 9.0 L Hct 29.3 L MCV 71 L MCH 22.0 L MCHC 30.8 L RDW 19.9 H Plt Count 229 Seg Neutrophils % Not Reportable Sodium 131.1 L Potassium 4.4 Chloride 99 Carbon Dioxide 21 L Anion Gap 11 BUN 28 H Creatinine 1.57 H Est GFR ( Amer) 53 L Glucose 120 H Calcium 8.5 Total Bilirubin 0.7 AST 29 Alkaline Phosphatase 59 Total Protein 6.5 Albumin 3.6 11/29/19 11/29/19 11/29/19 18:14 21:16 21:16 Creatine Kinase 750 H CK-MB (CK-2) 13.70 H Troponin I < 0.012 NT-Pro-B Natriuret Pep 5020 H 11/30/19 11/30/19 11/30/19 05:13 05:13 13:02 Creatine Kinase 486 H 476 H CK-MB (CK-2) 8.94 H Troponin I 0.012 NT-Pro-B Natriuret Pep 11/30/19 13:02 Creatine Kinase CK-MB (CK-2) 11.50 H Troponin I < 0.012 NT-Pro-B Natriuret Pep EKG Comments: Hemoglobin 9 Hematocrit 29.3 Leukocytosis with 17.3 white count increased from 8.3 yesterday. Platelet count is 229 Creatinine is 1.57 increased from 0.99 yesterday Potassium is 4.4 Magnesium was 2.2 on 11/30/2019 Troponin negative x3 Transthoracic echocardiogram 11/29/2019 Left ventricular ejection fraction is estimated at 40 to 45%. No aortic valve stenosis. Mild to moderate mitral regurgitation is noted. Telemetry shows sinus rhythm with ectopy. Chest x-ray 12/02/2019 Developing pneumonia, post CABG Impressions: Chest CT 11/30/19 00:00 IMPRESSION: STABLE CHRONIC EMPHYSEMATOUS CHANGES AND CHRONIC SCARRING IN THE RIGHT LUNG BASE. NO ACUTE FINDING ON NON-CONTRASTED CHEST CT. Chest/Abdomen CTA 12/02/19 00:00 IMPRESSION: No emboli visualized in the main pulmonary arteries or the segmental branches.New multifocal patchy -nodular airspace opacities throughout the left lower lobe with more dense consolidation in the inferior-posterior segments. Similar nodular opacities in the right lower lobe. No pleural effusion. Chest X-Ray 12/02/19 03:05 IMPRESSION: New bibasilar airspace opacities. Findings are worrisome for pneumonia. copyright 2010 [employer]- All Rights Reserved Assessment & Plan - Diagnosis (1) Anemia Qualifiers: Anemia type: iron deficiency Is this a current diagnosis for this admission?: Yes Plan: Receiving iron infusion. Correction of anemia Probable hyper dynamic circulation on account of anemia with resultant heart failure. Component of LV dysfunction also exist. Aspirin has been discontinued Will require GI evaluation for iron deficiency anemia (2) CAD (coronary artery disease) Qualifiers: Coronary Disease-Associated Artery/Lesion type: [place] artery [place] vs. transplanted heart: [place] heart Associated angina: without angina Qualified Code(s): I25.10 - Atherosclerotic heart disease of [place] coronary artery without angina pectoris Is this a current diagnosis for this admission?: Yes Plan: Stable. Current presentation does not suggest ongoing myocardial ischemia Given anemia should try to keep hemoglobin above 8 g/dL given coronary artery disease and CABG. May be reasonable to hold off on antiplatelet therapy until anemia is corrected (3) CHF (congestive heart failure), NYHA class II Qualifiers: Congestive heart failure type: systolic Congestive heart failure chronicity: acute on chronic Qualified Code(s): I50.23 - Acute on chronic sy stolic (congestive) heart failure Is this a current diagnosis for this admission?: Yes Plan: Improving. Especially with correction of anemia Continue guideline directed medical therapy for congestive heart failure and LV dysfunction-mildly reduced with ejection fraction 40 to 45%. Echocardiogram shows mildly reduced left ventricular function. Continue ARNI Continue beta-carlos manuel and Arni as tolerated (4) ANN (acute kidney injury) Is this a current diagnosis for this admission?: Yes Plan: Likely multifactorial Did have transient hypotension although not profound and not symptomatic Have been holding cardiomyopathy medications including beta-carlos manuel and ARNI Given ANN will hold ARNI Nephrology input would be ideal. (5) Nosocomial pneumonia Is this a current diagnosis for this admission?: Yes Plan: Receiving antibiotics with clinical improvement.
[2019-12-03] MEDS: ACETAMINOPHEN 325 MG TABLET PO PRN ×2 (16:03→23:23)
[2019-12-03] MEDS: PHARMACY COMMUNICATION ORDER MC SCH (17:06)
[2019-12-03] MEDS: TAMSULOSIN HCL 0.4 MG CAP.SR.24H PO SCH (17:08)
[2019-12-03] MEDS ORDERED: MORPHINE SULFATE SR 30 MG TABLET PO ONE (17:30)
--- NOTE | 2019-12-03 20:26 | PDOC PROGRESS REPORT ---
Subjective Progress Note for:: 12/03/19 Subjective:: , Patient seen by the bedside, he developed low blood pressure yesterday, he required dopamine he also sustained acute kidney injury. Seen by the bedside and IV antibiotic, negative for SARS-CoV-2 Reason For Visit: ACUTE SYSTOLIC HEART FAILURE, MICROCYTIC ANEMIA Physical Exam Vital Signs: Temp Pulse Resp BP Pulse Ox 98.0 F 115 H 18 166/77 H 97 12/03/19 08:25 12/03/19 16:00 12/03/19 12:29 12/03/19 16:00 12/03/19 12:29 Intake & Output 12/02/19 12/03/19 12/04/19 06:59 06:59 06:59 Intake Total 1034 1880 1895 Output Total 1250 450 960 Balance -216 1430 935 Weight 52.3 kg 56.2 kg General appearance: PRESENT: no acute distress Eye exam: PRESENT: PERRLA Respiratory exam: PRESENT: clear to auscultation josselyn Cardiovascular exam: PRESENT: +S1, +S2 GI/Abdominal exam: PRESENT: soft Neurological exam: PRESENT: alert Results Laboratory Results: 12/03/19 05:33 12/03/19 13:24 12/03/19 12/03/19 12/03/19 05:33 05:33 12:28 WBC 17.3 H D RBC 4.10 L Hgb 9.0 L Hct 29.3 L MCV 71 L MCH 22.0 L MCHC 30.8 L RDW 19.9 H Plt Count 229 Seg Neutrophils % Not Reportable Sodium 131.1 L Potassium 4.4 Chloride 99 Carbon Dioxide 21 L Anion Gap 11 BUN 28 H Creatinine 1.57 H Est GFR ( Amer) 53 L Glucose 120 H Calcium 8.5 Total Bilirubin 0.7 AST 29 Alkaline Phosphatase 59 Total Protein 6.5 Albumin 3.6 Urine Color YELLOW Urine Appearance CLEAR Urine pH 5.0 Ur Specific [place] 1.023 Urine Protein NEGATIVE Urine Glucose (UA) NEGATIVE Urine Ketones NEGATIVE Urine Blood NEGATIVE Urine Nitrite NEGATIVE Ur Leukocyte Esterase NEGATIVE Urine WBC (Auto) 0 Urine RBC (Auto) 1 12/03/19 13:24 WBC RBC Hgb Hct MCV MCH MCHC RDW Plt Count Seg Neutrophils % Sodium 130.6 L Potassium 4.4 Chloride 97 L Carbon Dioxide 24 Anion Gap 10 BUN 26 H Creatinine 1.40 H Est GFR ( Amer) > 60 Glucose 126 H Calcium 8.9 Total Bilirubin 0.7 AST 32 Alkaline Phosphatase 59 Total Protein 6.9 Albumin 3.8 Urine Color Urine Appearance Urine pH Ur Specific [place] Urine Protein Urine Glucose (UA) Urine Ketones Urine Blood Urine Nitrite Ur Leukocyte Esterase Urine WBC (Auto) Urine RBC (Auto) 11/29/19 11/29/19 11/29/19 18:14 21:16 21:16 Creatine Kinase 750 H CK-MB (CK-2) 13.70 H Troponin I < 0.012 NT-Pro-B Natriuret Pep 5020 H 11/30/19 11/30/19 11/30/19 05:13 05:13 13:02 Creatine Kinase 486 H 476 H CK-MB (CK-2) 8.94 H Troponin I 0.012 NT-Pro-B Natriuret Pep 11/30/19 13:02 Creatine Kinase CK-MB (CK-2) 11.50 H Troponin I < 0.012 NT-Pro-B Natriuret Pep Impressions: Chest CT 11/30/19 00:00 IMPRESSION: STABLE CHRONIC EMPHYSEMATOUS CHANGES AND CHRONIC SCARRING IN THE RIGHT LUNG BASE. NO ACUTE FINDING ON NON-CONTRASTED CHEST CT. Chest/Abdomen CTA 12/02/19 00:00 IMPRESSION: No emboli visualized in the main pulmonary arteries or the segmental branches.New multifocal patchy -nodular airspace opacities throughout the left lower lobe with more dense consolidation in the inferior-posterior segments. Similar nodular opacities in the right lower lobe. No pleural effusion. Chest X-Ray 12/02/19 03:05 IMPRESSION: New bibasilar airspace opacities. Findings are worrisome for pneumonia. copyright 2010 [employer]- All Rights Reserved Assessment & Plan - Diagnosis (1) Acute systolic heart failure Is this a current diagnosis for this admission?: Yes Plan: Stable (2) Iron deficiency anemia Qualifiers: Iron deficiency anemia type: chronic blood loss Qualified Code(s): D50.0 - Iron deficiency anemia secondary to blood loss (chronic) Is this a current diagnosis for this admission?: Yes (3) COPD (chronic obstructive pulmonary disease) Qualifiers: COPD type: unspecified COPD Qualified Code(s): J44.9 - Chronic obstructive pulmonary disease, unspecified Is this a current diagnosis for this admission?: Yes (4) CAD (coronary artery disease) Qualifiers: Coronary Disease-Associated Artery/Lesion type: [place] artery [place] vs. transplanted heart: [place] heart Associated angina: without angina Qualified Code(s): I25.10 - Atherosclerotic heart disease of [place] coronary artery without angina pectoris Is this a current diagnosis for this admission?: Yes (5) Nosocomial pneumonia Is this a current diagnosis for this admission?: Yes Plan: Patient with nosocomial pneumonia on IV antibiotic (6) Hypotension Qualifiers: Hypotension type: idiopathic hypotension Qualified Code(s): I95.0 - Idiopathic hypotension Is this a current diagnosis for this admission?: Yes Plan: Patient with cardiomyopathy, slow IV fluid therapy start dopamine infusion (7) ANN (acute kidney injury) Is this a current diagnosis for this admission?: Yes Plan: Acute kidney injury due to combination of factors including low blood pressure, contrast from CTA, most likely ATN continue monitoring avoid nephrotoxins, no indication for renal replacement therapy. (8) Chronic pain syndrome Is this a current diagnosis for this admission?: Yes Plan: Patient on chronic opioid therapy - Time Time Spent with patient: 35 or more minutes Level of Care: IMCU Medications reviewed and adjusted accordingly: Yes
[2019-12-03] MEDS: ENOXAPARIN SODIUM INJ 40 MG/0.4 ML DISP.SYRIN SUBCUT SCH (21:54)
[2019-12-03] MEDS: ATORVASTATIN CALCIUM 20 MG TABLET PO SCH (21:54)
[2019-12-03] MEDS ORDERED: DOPAMINE HCL 800 MG/D5W 250 ML IV PRN ×2 (21:55→22:26)
[2019-12-04] MEDS: RINGERS SOLUTION,LACTATED 1,000 ML IV PRN (00:25)
[2019-12-04] MEDS: MEROPENEM 1 GM in NORMAL SALINE 50 ML IV SCH ×3 (06:44→22:35)
[2019-12-04] MEDS: PANTOPRAZOLE SODIUM 20 MG TABLET.DR PO SCH (07:02)
[2019-12-04 09:46] LABS: HEMATOCRIT 28.9 % (37.9-51.0); MEAN CORPUSCULAR HEMOGLOBIN 22.4 pg (27.0-33.4); MEAN CORPUSCULAR HGB CONC 31.1 g/dL (32.0-36.0); MEAN CORPUSCULAR VOLUME 72 fl (80-97); PLATELET COUNT 214 10^3/uL (150-450); RED BLOOD COUNT 4.02 10^6/uL (4.35-5.55); RED CELL DISTRIBUTION WIDTH 19.8 % (11.5-14.0); WHITE BLOOD COUNT 8.6 10^3/uL (4.0-10.5)
[2019-12-04] MEDS: MORPHINE SULFATE SR 30 MG TABLET PO SCH ×2 (10:00→22:34)
[2019-12-04] MEDS: FLUTICASONE/VILANTEROL 200-25 MCG/DOSE IH SCH (10:00)
[2019-12-04] MEDS: UMECLIDINIUM BROMIDE 62.5 MCG/DOSE IH SCH (10:00)
[2019-12-04 10:09] LABS: ALBUMIN 3.2 g/dL (3.5-5.0); ALKALINE PHOSPHATASE 52 U/L (38-126); ANION GAP 9 (5-19); ASPARTATE AMINO TRANSFERASE 27 U/L (17-59); BILIRUBIN,TOTAL 0.6 mg/dL (0.2-1.3); BLOOD UREA NITROGEN 18 mg/dL (7-20); CALCIUM 8.5 mg/dL (8.4-10.2); CARBON DIOXIDE 24 mmol/L (22-30); CHLORIDE 98 mmol/L (98-107); GLUCOSE 142 mg/dL (75-110); POTASSIUM 4.1 mmol/L (3.6-5.0); TOTAL PROTEIN 6.2 g/dL (6.3-8.2)
[2019-12-04 10:11] LABS: ABSOLUTE LYMPHOCYTES# (MANUAL) 0.9 10^3/uL (0.5-4.7); ABSOLUTE MONOCYTES # (MANUAL) 0.5 10^3/uL (0.1-1.4); BASOPHILS % (MANUAL) 0 % (0-2); EOSINOPHILS % (MANUAL) 0 % (0-6); LYMPHOCYTES % (MANUAL) 11 % (13-45); MONOCYTES % (MANUAL) 6 % (3-13); SEGMENTED NEUTROPHILS % (MAN) 83 % (42-78); TOTAL CELLS COUNTED 100
[2019-12-04 10:13] LABS: ANISOCYTOSIS 2+; HYPOCHROMASIA 1+
[2019-12-04 10:14] LABS: BURR CELLS 1+; PLATELET COMMENT ADEQUATE; TEAR DROP CELLS SLIGHT
[2019-12-04] MEDS: LINEZOLID 600 MG/300 ML RTUPB IV SCH ×2 (10:30→22:39)
[2019-12-04] MEDS: ONDANSETRON HCL INJ/PF 4 MG/2 ML SDV IV PRN (10:31)
--- NOTE | 2019-12-04 11:14 | PDOC PROGRESS REPORT ---
Subjective Progress Note for:: 12/04/19 Subjective:: The last 24 hours patient was hypotensive without prominent symptoms but was started on dopamine. He also developed acute kidney injury. The last 48 hours is been diagnosed with nosocomial pneumonia based on abnormal chest x-ray, increasing oxygen requirement and was started on antibiotic. He does not endorse any symptoms and his cough is improved. He does not report chest pain. Reason For Visit: ACUTE SYSTOLIC HEART FAILURE, MICROCYTIC ANEMIA Physical Exam Vital Signs: Temp Pulse Resp BP Pulse Ox 97.8 F 94 18 119/68 97 12/04/19 03:29 12/04/19 11:00 12/04/19 03:29 12/04/19 11:00 12/04/19 06:44 Intake & Output 12/03/19 12/04/19 12/05/19 06:59 06:59 06:59 Intake Total 1880 2558 82 Output Total 450 1285 400 Balance 1430 1273 -318 Weight 56.2 kg 54.4 kg General appearance: PRESENT: cooperative, thin, well-developed Head exam: PRESENT: atraumatic, normocephalic Eye exam: PRESENT: conjunctiva pale, EOMI Respiratory exam: PRESENT: crackles, decreased breath sounds, symmetrical, unlabored Cardiovascular exam: PRESENT: RRR, +S1, +S2 Pulses: PRESENT: normal radial pulses GI/Abdominal exam: PRESENT: soft Rectal exam: PRESENT: deferred Neurological exam: PRESENT: alert, awake, oriented to person, oriented to place, oriented to time, oriented to situation, reflexes normal Psychiatric exam: PRESENT: appropriate affect Skin exam: PRESENT: dry, intact, pallor Results Laboratory Results: 12/04/19 09:23 12/04/19 09:23 12/03/19 12/03/19 12/04/19 12:28 13:24 09:23 WBC RBC Hgb Hct MCV MCH MCHC RDW Plt Count Seg Neutrophils % Sodium 130.6 L 131.3 L Potassium 4.4 4.1 Chloride 97 L 98 Carbon Dioxide 24 24 Anion Gap 10 9 BUN 26 H 18 Creatinine 1.40 H 1.05 Est GFR ( Amer) > 60 > 60 Glucose 126 H 142 H Calcium 8.9 8.5 Total Bilirubin 0.7 0.6 AST 32 27 Alkaline Phosphatase 59 52 Total Protein 6.9 6.2 L Albumin 3.8 3.2 L Urine Color YELLOW Urine Appearance CLEAR Urine pH 5.0 Ur Specific [place] 1.023 Urine Protein NEGATIVE Urine Glucose (UA) NEGATIVE Urine Ketones NEGATIVE Urine Blood NEGATIVE Urine Nitrite NEGATIVE Ur Leukocyte Esterase NEGATIVE Urine WBC (Auto) 0 Urine RBC (Auto) 1 12/04/19 09:23 WBC 8.6 RBC 4.02 L Hgb 9.0 L Hct 28.9 L MCV 72 L MCH 22.4 L MCHC 31.1 L RDW 19.8 H Plt Count 214 Seg Neutrophils % Not Reportable Sodium Potassium Chloride Carbon Dioxide Anion Gap BUN Creatinine Est GFR ( Amer) Glucose Calcium Total Bilirubin AST Alkaline Phosphatase Total Protein Albumin Urine Color Urine Appearance Urine pH Ur Specific [place] Urine Protein Urine Glucose (UA) Urine Ketones Urine Blood Urine Nitrite Ur Leukocyte Esterase Urine WBC (Auto) Urine RBC (Auto) 12/02/19 08:40 Sputum Gram Stain - Final 12/02/19 08:40 Sputum Sputum Culture - Final NORMAL RHIANNON 11/29/19 11/29/19 11/29/19 18:14 21:16 21:16 Creatine Kinase 750 H CK-MB (CK-2) 13.70 H Troponin I < 0.012 NT-Pro-B Natriuret Pep 5020 H 11/30/19 11/30/19 11/30/19 05:13 05:13 13:02 Creatine Kinase 486 H 476 H CK-MB (CK-2) 8.94 H Troponin I 0.012 NT-Pro-B Natriuret Pep 11/30/19 13:02 Creatine Kinase CK-MB (CK-2) 11.50 H Troponin I < 0.012 NT-Pro-B Natriuret Pep Impressions: Chest CT 11/30/19 00:00 IMPRESSION: STABLE CHRONIC EMPHYSEMATOUS CHANGES AND CHRONIC SCARRING IN THE RIGHT LUNG BASE. NO ACUTE FINDING ON NON-CONTRASTED CHEST CT. Chest/Abdomen CTA 12/02/19 00:00 IMPRESSION: No emboli visualized in the main pulmonary arteries or the segmental branches.New multifocal patchy -nodular airspace opacities throughout the left lower lobe with more dense consolidation in the inferior-posterior segments. Similar nodular opacities in the right lower lobe. No pleural effusion. Chest X-Ray 12/02/19 03:05 IMPRESSION: New bibasilar airspace opacities. Findings are worrisome for pneumonia. copyright 2010 [employer]- All Rights Reserved Assessment & Plan - Diagnosis (1) Anemia Qualifiers: Anemia type: iron deficiency Is this a current diagnosis for this admission?: Yes Plan: Receiving iron infusion. Correction of anemia Probable hyper dynamic circulation on account of anemia with resultant heart failure. Component of LV dysfunction also exist. Aspirin has been discontinued Will require GI evaluation for iron deficiency anemia (2) CAD (coronary artery disease) Qualifiers: Coronary Disease-Associated Artery/Lesion type: [place] artery [place] vs. transplanted heart: [place] heart Associated angina: without angina Qualified Code(s): I25.10 - Atherosclerotic heart disease of [place] coronary artery without angina pectoris Is this a current diagnosis for this admission?: Yes Plan: Stable. Current presentation does not suggest ongoing myocardial ischemia Given anemia should try to keep hemoglobin above 8 g/dL given coronary artery disease and CABG. May be reasonable to hold off on antiplatelet therapy until anemia is corrected (3) CHF (congestive heart failure), NYHA class II Qualifiers: Congestive heart failure type: systolic Congestive heart failure chronicity: acute on chronic Qualified Code(s): I50.23 - Acute on chronic systolic (congestive) heart failure Is this a current diagnosis for this admission?: Yes Plan: Improving. Especially with correction of anemia Continue guideline directed medical therapy for congestive heart failure and LV dysfunction-mildly reduced with ejection fraction 40 to 45%. Echocardiogram shows mildly reduced left ventricular function. Presently on dopamine with hypotension likely multifactorial-chronic narcotic usage, infection Worried about sepsis. Hold beta-carlos manuel Hold Entresto (4) ANN (acute kidney injury) Is this a current diagnosis for this admission?: Yes Plan: Likely multifactorial Hypotension and has been started on dopamine Hold cardiomyopathy medications including beta-carlos manuel and ARNI Given ANN will hold ARNI Nephrology input would be ideal. (5) Nosocomial pneumonia Is this a current diagnosis for this admission?: Yes Plan: Receiving antibiotics with clinical improvement.
[2019-12-04] MEDS: PHARMACY COMMUNICATION ORDER MC SCH (17:28)
[2019-12-04] MEDS: TAMSULOSIN HCL 0.4 MG CAP.SR.24H PO SCH (17:31)
[2019-12-04] MEDS: BISACODYL 5 MG TABEC PO PRN (19:33)
--- NOTE | 2019-12-04 20:20 | PDOC PROGRESS REPORT ---
Subjective Progress Note for:: 12/04/19 Subjective:: Patient is alert blood pressure remains low, he continues to require vasopressor dopamine to achieve systolic pressure above 90, He has less cough Reason For Visit: ACUTE SYSTOLIC HEART FAILURE, MICROCYTIC ANEMIA Physical Exam Vital Signs: Temp Pulse Resp BP Pulse Ox 98.0 F 93 20 92/67 L 99 12/04/19 19:14 12/04/19 19:14 12/04/19 19:14 12/04/19 19:14 12/04/19 19:14 Intake & Output 12/03/19 12/04/19 12/05/19 06:59 06:59 06:59 Intake Total 1880 2558 1288 Output Total 450 1285 1100 Balance 1430 1273 188 Weight 56.2 kg 54.4 kg General appearance: PRESENT: no acute distress Eye exam: PRESENT: PERRLA Respiratory exam: PRESENT: rhonchi Cardiovascular exam: PRESENT: +S1, +S2 GI/Abdominal exam: PRESENT: soft Neurological exam: PRESENT: alert Results Laboratory Results: 12/04/19 09:23 12/04/19 09:23 12/04/19 12/04/19 09:23 09:23 WBC 8.6 RBC 4.02 L Hgb 9.0 L Hct 28.9 L MCV 72 L MCH 22.4 L MCHC 31.1 L RDW 19.8 H Plt Count 214 Seg Neutrophils % Not Reportable Sodium 131.3 L Potassium 4.1 Chloride 98 Carbon Dioxide 24 Anion Gap 9 BUN 18 Creatinine 1.05 Est GFR ( Amer) > 60 Glucose 142 H Calcium 8.5 Total Bilirubin 0.6 AST 27 Alkaline Phosphatase 52 Total Protein 6.2 L Albumin 3.2 L 12/02/19 08:40 Sputum Gram Stain - Final 12/02/19 08:40 Sputum Sputum Culture - Final NORMAL RHIANNON 11/29/19 11/29/19 11/29/19 18:14 21:16 21:16 Creatine Kinase 750 H CK-MB (CK-2) 13.70 H Troponin I < 0.012 NT-Pro-B Natriuret Pep 5020 H 11/30/19 11/30/19 11/30/19 05:13 05:13 13:02 Creatine Kinase 486 H 476 H CK-MB (CK-2) 8.94 H Troponin I 0.012 NT-Pro-B Natriuret Pep 11/30/19 13:02 Creatine Kinase CK-MB (CK-2) 11.50 H Troponin I < 0.012 NT-Pro-B Natriuret Pep Impressions: Chest CT 11/30/19 00:00 IMPRESSION: STABLE CHRONIC EMPHYSEMATOUS CHANGES AND CHRONIC SCARRING IN THE RIGHT LUNG BASE. NO ACUTE FINDING ON NON-CONTRASTED CHEST CT. Chest/Abdomen CTA 12/02/19 00:00 IMPRESSION: No emboli visualized in the main pulmonary arteries or the segmental branches.New multifocal patchy -nodular airspace opacities throughout the left lower lobe with more dense consolidation in the inferior-posterior segments. Similar nodular opacities in the right lower lobe. No pleural effusion. Chest X-Ray 12/02/19 03:05 IMPRESSION: New bibasilar airspace opacities. Findings are worrisome for pneumonia. copyright 2010 [employer]- All Rights Reserved Assessment & Plan - Diagnosis (1) Acute systolic heart failure Is this a current diagnosis for this admission?: Yes Plan: Presently well compensated, the anti-CHF regimen, Entresto, beta-carlos manuel is on hold because of persistently low blood pressure (2) Iron deficiency anemia Qualifiers: Iron deficiency anemia type: chronic blood loss Qualified Code(s): D50.0 - Iron deficiency anemia secondary to blood loss (chronic) Is this a current diagnosis for this admission?: Yes Plan: He has iron deficiency anemia, he received Injectafer a week ago, patient will need GI endoscopy on discharge (3) COPD (chronic obstructive pulmonary disease) Qualifiers: COPD type: unspecified COPD Qualified Code(s): J44.9 - Chronic obstructive pulmonary disease, unspecified Is this a current diagnosis for this admission?: Yes Plan: No acute COPD exacerbation presently (4) CAD (coronary artery disease) Qualifiers: Coronary Disease-Associated Artery/Lesion type: [place] artery [place] vs. transplanted heart: [place] heart Associated angina: without angina Qualified Code(s): I25.10 - Atherosclerotic heart disease of [place] coronary artery without angina pectoris Is this a current diagnosis for this admission?: Yes (5) Nosocomial pneumonia Is this a current diagnosis for this admission?: Yes Plan: Patient with nosocomial pneumonia on IV antibiotic that covers potential pathogens, MRSA, gram-negative organisms, gram-positive organisms (6) Hypotension Qualifiers: Hypotension type: idiopathic hypotension Qualified Code(s): I95.0 - Idiopathic hypotension Is this a current diagnosis for this admission?: Yes Plan: This is probably sepsis related, patient presently requiring IV vasopressor dopamine to maintain systolic blood pressure above 90 (7) ANN (acute kidney injury) Is this a current diagnosis for this admission?: Yes Plan: Acute kidney injury is resolved suggesting etiology to be hemodynamic other than a true ATN (8) Chronic pain syndrome Is this a current diagnosis for this admission?: Yes - Time Time Spent with patient: 35 or more minutes Level of Care: IMCU Medications reviewed and adjusted accordingly: Yes Anticipated discharge: Home
--- NOTE | 2019-12-04 21:34 | RADIOLOGY REPORT (SQ) ---
CLINICAL INDICATION: pneumonia . TECHNIQUE: A single portable AP view was obtained of the chest at 2112 hours. COMPARISON: December 02, 2019. FINDINGS: The cardiomediastinal silhouette is enlarged but stable with postsurgical change. The lungs again demonstrate chronic changes. More focal airspace disease left lung base, improved from prior.. No significant pleural fluid. No pneumothorax. Left sided PICC tip projects over SVC, satisfactory. IMPRESSION: Improved aeration.
[2019-12-04] MEDS: ATORVASTATIN CALCIUM 20 MG TABLET PO SCH (22:34)
[2019-12-04] MEDS: ENOXAPARIN SODIUM INJ 40 MG/0.4 ML DISP.SYRIN SUBCUT SCH (22:35)
[2019-12-05] MEDS: PANTOPRAZOLE SODIUM 20 MG TABLET.DR PO SCH (05:31)
[2019-12-05] MEDS: MEROPENEM 1 GM in NORMAL SALINE 50 ML IV SCH ×3 (05:32→21:45)
--- NOTE | 2019-12-05 08:14 | RADIOLOGY REPORT (SQ) ---
EXAM DESCRIPTION: PICC INSERTION IMAGES COMPLETED DATE/TIME: 12/04/2019 4:13 pm REASON FOR STUDY: Dopamine drip poor IV access COMPARISON: None. FLUOROSCOPY TIME: 16 seconds 1 images saved to PACS. TECHNIQUE: Fluoroscopic and ultrasound guided PICC placement. LIMITATIONS: None. PROCEDURE: After written consent and assessment were obtained, the patient was brought into the fluo roscopy room and placed supine on the table. Ultrasound evaluation of potential access sites were per formed. After successfully identifying a patent left basilic vein, the left upper arm was prepped and draped in a sterile fashion along with the ultrasound probe. The entry site was anesthetized with 1% lidocaine. A 21 gauge 7 cm needle was advanced through the skin and into the left basilic vein under live ultrasound guidance. An ultrasound image was saved to PACS confirming access site. A .018 kalli de wire was then inserted through the needle and into the venous system. The needle was then removed and an 11 blade scalpel was used to make a 1 cm skin incision. A 5 fr peel-away sheath was advanced over the wire and into the venous system. A measurement was then made using the existing wire and jacy e fluoroscopic guidance. The wire was then removed and trimmed. The PICC was advanced through the pee l-away sheath and into the venous system. The peel-away sheath was removed and the catheter was adher ed to the patients arm with a stat lock. The catheter was then aspirated and flushed and a sterile ba ndage was placed over the access site. A fluoroscopic spot image was saved to PACS confirming the ca theter tip within the SVC. IMPRESSION: SUCCESSFUL PLACEMENT OF A 5 FR DUAL LUMEN 47 CM PICC IN THE LEFT BASILIC VEIN. COMMENT: Patient medication list reviewed: Yes- Quality ID# [id number]:Eligible professional attests to doc umenting in the medical record they obtained, updated, or reviewed the patient's current medications. . Quality ID 145: Final reports for procedures using fluoroscopy that document radiation exposure eliazar kaila, or exposure time and number of fluorographic images (if radiation exposure indices are not avail able) Quality ID #76: The patient was prepped and draped using maximum sterile barrier technique including cap, mask, sterile gown, sterile gloves, a large sterile sheet, hand hygiene, and 2% Chlorhexidine fo r cutaneous antisepsis. When ultrasound is used, sterile ultrasound techniques are followed requiring sterile gel and sterile probes. TECHNICAL DOCUMENTATION: JOB ID: [id number] 2010 [employer]- All Rights Reserved rev-11/04 Reading location - IP/workstation name: [email or web address]
--- NOTE | 2019-12-05 09:54 | PDOC PROGRESS REPORT ---
Subjective Progress Note for:: 12/05/19 Subjective:: Seen and examined. He feels much better. Still coughing up. No dyspnea is reported. Does not mean requirement is down to 2 mcg/minute gtt. No bowel movements. Reason For Visit: ACUTE SYSTOLIC HEART FAILURE, MICROCYTIC ANEMIA Physical Exam Vital Signs: Temp Pulse Resp BP Pulse Ox 98.0 F 86 20 145/86 H 96 12/05/19 07:47 12/05/19 08:00 12/05/19 03:54 12/05/19 08:00 12/05/19 07:47 Intake & Output 12/04/19 12/05/19 12/06/19 06:59 06:59 06:59 Intake Total 2558 2378 Output Total 1285 1600 Balance 1273 778 Weight 54.4 kg 59.3 kg General appearance: PRESENT: no acute distress, cooperative, thin, well- developed Head exam: PRESENT: atraumatic, normocephalic Eye exam: PRESENT: conjunctiva pale, EOMI Mouth exam: PRESENT: moist Respiratory exam: PRESENT: decreased breath sounds, rales, symmetrical, unlabored Cardiovascular exam: PRESENT: RRR, +S1, +S2, systolic murmur Pulses: PRESENT: normal radial pulses GI/Abdominal exam: PRESENT: soft Rectal exam: PRESENT: deferred Neurological exam: PRESENT: alert, awake, oriented to person, oriented to place, oriented to time, oriented to situation Psychiatric exam: PRESENT: appropriate affect Skin exam: PRESENT: dry, intact, pallor Results Laboratory Results: 12/04/19 09:23 12/04/19 09:23 12/04/19 12/04/19 09:23 09:23 WBC 8.6 RBC 4.02 L Hgb 9.0 L Hct 28.9 L MCV 72 L MCH 22.4 L MCHC 31.1 L RDW 19.8 H Plt Count 214 Seg Neutrophils % Not Reportable Sodium 131.3 L Potassium 4.1 Chloride 98 Carbon Dioxide 24 Anion Gap 9 BUN 18 Creatinine 1.05 Est GFR ( Amer) > 60 Glucose 142 H Calcium 8.5 Total Bilirubin 0.6 AST 27 Alkaline Phosphatase 52 Total Protein 6.2 L Albumin 3.2 L 12/02/19 08:40 Sputum Gram Stain - Final 12/02/19 08:40 Sputum Sputum Culture - Final NORMAL RHIANNON 11/29/19 11/29/1920 18:14 21:16 21:16 Creatine Kinase 750 H CK-MB (CK-2) 13.70 H Troponin I < 0.012 NT-Pro-B Natriuret Pep 5020 H 11/30/19 11/30/19 11/30/19 05:13 05:13 13:02 Creatine Kinase 486 H 476 H CK-MB (CK-2) 8.94 H Troponin I 0.012 NT-Pro-B Natriuret Pep 11/30/19 13:02 Creatine Kinase CK-MB (CK-2) 11.50 H Troponin I < 0.012 NT-Pro-B Natriuret Pep EKG Comments: Sinus rhythm. Impressions: Chest CT 11/30/19 00:00 IMPRESSION: STABLE CHRONIC EMPHYSEMATOUS CHANGES AND CHRONIC SCARRING IN THE RIGHT LUNG BASE. NO ACUTE FINDING ON NON-CONTRASTED CHEST CT. Chest/Abdomen CTA 12/02/19 00:00 IMPRESSION: No emboli visualized in the main pulmonary arteries or the segmental branches.New multifocal patchy -nodular airspace opacities throughout the left lower lobe with more dense consolidation in the inferior-posterior segments. Similar nodular opacities in the right lower lobe. No pleural effusion. Chest X-Ray 12/04/19 00:00 IMPRESSION: Improved aeration. PICC Line Insertion 12/04/19 13:49 IMPRESSION: SUCCESSFUL PLACEMENT OF A 5 FR DUAL LUMEN 47 CM PICC IN THE LEFT BASILIC VEIN. Assessment & Plan - Diagnosis (1) Anemia Qualifiers: Anemia type: iron deficiency Is this a current diagnosis for this admission?: Yes Plan: Iron deficiency anemia Has received iron infusion Hemoglobin and hematocrit appear to be stable Not actively bleeding Given age and iron deficiency will need complete GI eval upon discharge. Reasonable to hold antiplatelet therapy" etiology of iron deficiency anemia is established. (2) CAD (coronary artery disease) Qualifiers: Coronary Disease-Associated Artery/Lesion type: [place] artery [place] vs. transplanted heart: [place] heart Associated angina: without angina Qualified Code(s): I25.10 - Atherosclerotic heart disease of [place] coronary artery without angina pectoris Is this a current diagnosis for this admission?: Yes Plan: Stable. Current presentation does not suggest ongoing myocardial ischemia Given anemia should try to keep hemoglobin above 8 g/dL given coronary artery disease and CABG. May be reasonable to hold off on antiplatelet therapy until anemia is corrected (3) CHF (congestive heart failure), NYHA class II Qualifiers: Congestive heart failure type: systolic Congestive heart failure chronicity: acute on chronic Qualified Code(s): I50.23 - Acute on chronic systolic (congestive) heart failure Is this a current diagnosis for this admission?: Yes Plan: Improving. Especially with correction of anemia Continue guideline directed medical therapy for congestive heart failure and LV dysfunction-mildly reduced with ejection fraction 40 to 45%. Echocardiogram shows mildly reduced left ventricular function. We does not need to of today. Rechallenge with low-dose beta-carlos manuel Continue to hold Entresto and may be resumed in the next 24 to 48 hours. (4) ANN (acute kidney injury) Is this a current diagnosis for this admission?: Yes Plan: ANN is improving. Could consider starting Entresto soon. (5) Nosocomial pneumonia Is this a current diagnosis for this admission?: Yes Plan: Receiving antibiotics with clinical improvement. Improvement in leukocytosis Lungs are still coarse. Increased cough and expectoration. Pulmonary toilet
[2019-12-05] MEDS: LINEZOLID 600 MG/300 ML RTUPB IV SCH ×2 (10:15→21:48)
[2019-12-05] MEDS: LEVOFLOXACIN 750 MG TABLET PO SCH (10:15)
[2019-12-05] MEDS: MORPHINE SULFATE SR 30 MG TABLET PO SCH ×2 (10:15→21:50)
[2019-12-05] MEDS: FLUTICASONE/VILANTEROL 200-25 MCG/DOSE IH SCH (10:16)
[2019-12-05] MEDS: UMECLIDINIUM BROMIDE 62.5 MCG/DOSE IH SCH (10:16)
[2019-12-05] MEDS: RINGERS SOLUTION,LACTATED 1,000 ML IV PRN (10:16)
[2019-12-05] MEDS: BISACODYL 5 MG TABEC PO PRN (10:44)
[2019-12-05 11:32] LABS: ALBUMIN 3.1 g/dL (3.5-5.0); ALKALINE PHOSPHATASE 55 U/L (38-126); ANION GAP 6 (5-19); ASPARTATE AMINO TRANSFERASE 29 U/L (17-59); BILIRUBIN,DIRECT 0.1 mg/dL (0.0-0.4); BILIRUBIN,TOTAL 0.5 mg/dL (0.2-1.3); BLOOD UREA NITROGEN 12 mg/dL (7-20); CALCIUM 8.4 mg/dL (8.4-10.2); CARBON DIOXIDE 26 mmol/L (22-30); CHLORIDE 98 mmol/L (98-107); GLUCOSE 116 mg/dL (75-110); POTASSIUM 4.5 mmol/L (3.6-5.0); TOTAL PROTEIN 6.2 g/dL (6.3-8.2)
[2019-12-05] MEDS ORDERED: NORMAL SALINE 10 ML SDV (AFTER EACH USE) IV PRN (14:00)
[2019-12-05] MEDS ORDERED: METOPROLOL SUCCINATE 25 MG TAB.SR.24H PO PRN (16:20)
[2019-12-05] MEDS: IPRATROPIUM/ALBUTEROL 0.5-2.5 MG/3 ML AMPUL NEB PRN (16:48)
[2019-12-05] MEDS: PHARMACY COMMUNICATION ORDER MC SCH (17:11)
[2019-12-05] MEDS: TAMSULOSIN HCL 0.4 MG CAP.SR.24H PO SCH (17:12)
--- NOTE | 2019-12-05 17:51 | PDOC PROGRESS REPORT ---
Subjective Progress Note for:: 12/05/19 Subjective:: Patient is alert, still cough, he wants bronchodilators he believes it will help with expectoration of sputum.The blood pressure is stabilized Reason For Visit: ACUTE SYSTOLIC HEART FAILURE, MICROCYTIC ANEMIA Physical Exam Vital Signs: Temp Pulse Resp BP Pulse Ox 98.0 F 82 18 125/68 97 12/05/19 07:47 12/05/19 15:37 12/05/19 15:37 12/05/19 13:00 12/05/19 15:37 Intake & Output 12/04/19 12/05/19 12/06/19 06:59 06:59 06:59 Intake Total 2558 2598 622 Output Total 1285 1600 375 Balance 1273 778 247 Weight 54.4 kg 59.3 kg General appearance: PRESENT: no acute distress Eye exam: PRESENT: PERRLA Respiratory exam: PRESENT: crackles Cardiovascular exam: PRESENT: +S1, +S2 GI/Abdominal exam: PRESENT: soft Neurological exam: PRESENT: alert, CN II-XII grossly intact Results Laboratory Results: 12/04/19 09:23 12/05/19 10:53 12/05/19 10:53 Sodium 129.8 L Potassium 4.5 Chloride 98 Carbon Dioxide 26 Anion Gap 6 BUN 12 Creatinine 0.67 Est GFR ( Amer) > 60 Glucose 116 H Calcium 8.4 Total Bilirubin 0.5 AST 29 Alkaline Phosphatase 55 Total Protein 6.2 L Albumin 3.1 L 11/29/19 11/29/19 11/29/19 18:14 21:16 21:16 Creatine Kinase 750 H CK-MB (CK-2) 13.70 H Troponin I < 0.012 NT-Pro-B Natriuret Pep 5020 H 11/30/19 11/30/19 11/30/19 05:13 05:13 13:02 Creatine Kinase 486 H 476 H CK-MB (CK-2) 8.94 H Troponin I 0.012 NT-Pro-B Natriuret Pep 11/30/19 13:02 Creatine Kinase CK-MB (CK-2) 11.50 H Troponin I < 0.012 NT-Pro-B Natriuret Pep Impressions: Chest CT 11/30/19 00:00 IMPRESSION: STABLE CHRONIC EMPHYSEMATOUS CHANGES AND CHRONIC SCARRING IN THE RIGHT LUNG BASE. NO ACUTE FINDING ON NON-CONTRASTED CHEST CT. Chest/Abdomen CTA 12/02/19 00:00 IMPRESSION: No emboli visualized in the main pulmonary arteries or the segmenta l branches.New multifocal patchy -nodular airspace opacities throughout the left lower lobe with more dense consolidation in the inferior-posterior segments. Similar nodular opacities in the right lower lobe. No pleural effusion. Chest X-Ray 12/04/19 00:00 IMPRESSION: Improved aeration. PICC Line Insertion 12/04/19 13:49 IMPRESSION: SUCCESSFUL PLACEMENT OF A 5 FR DUAL LUMEN 47 CM PICC IN THE LEFT BASILIC VEIN. Assessment & Plan - Diagnosis (1) Acute systolic heart failure Is this a current diagnosis for this admission?: Yes Plan: Stable, blood pressure too low to initiate anti-CHF medication including Entresto, metoprolol (2) Iron deficiency anemia Qualifiers: Iron deficiency anemia type: chronic blood loss Qualified Code(s): D50.0 - Iron deficiency anemia secondary to blood loss (chronic) Is this a current diagnosis for this admission?: Yes Plan: Patient to receive second dose of Injectafer tomorrow, need GI endoscopy to be done outpatient (3) COPD (chronic obstructive pulmonary disease) Qualifiers: COPD type: unspecified COPD Qualified Code(s): J44.9 - Chronic obstructive pulmonary disease, unspecified Is this a current diagnosis for this admission?: Yes Plan: Start bronchodilators, DuoNeb (4) CAD (coronary artery disease) Qualifiers: Coronary Disease-Associated Artery/Lesion type: [place] artery [place] vs. transplanted heart: [place] heart Associated angina: without angina Qualified Code(s): I25.10 - Atherosclerotic heart disease of [place] coronary artery without angina pectoris Is this a current diagnosis for this admission?: Yes (5) Nosocomial pneumonia Is this a current diagnosis for this admission?: Yes Plan: Continue IV antibiotic (6) Hypotension Qualifiers: Hypotension type: idiopathic hypotension Qualified Code(s): I95.0 - Idiopathic hypotension Is this a current diagnosis for this admission?: Yes Plan: Stabilized (7) ANN (acute kidney injury) Is this a current diagnosis for this admission?: Yes Plan: Improved (8) Chronic pain syndrome Is this a current diagnosis for this admission?: Yes - Time Time Spent with patient: 25-34 minutes Level of Care: IMCU Medications reviewed and adjusted accordingly: Yes
[2019-12-05] MEDS: ACETAMINOPHEN 325 MG TABLET PO PRN (19:42)
[2019-12-05] MEDS: ATORVASTATIN CALCIUM 20 MG TABLET PO SCH (21:50)
[2019-12-05] MEDS: ENOXAPARIN SODIUM INJ 40 MG/0.4 ML DISP.SYRIN SUBCUT SCH (21:52)
[2019-12-05] MEDS: NORMAL SALINE 10 ML SDV (SCHEDULED) IV SCH (21:54)
[2019-12-06] MEDS: IPRATROPIUM/ALBUTEROL 0.5-2.5 MG/3 ML AMPUL NEB PRN ×3 (00:30→16:55)
[2019-12-06] MEDS: MEROPENEM 1 GM in NORMAL SALINE 50 ML IV SCH ×3 (05:15→23:15)
[2019-12-06] MEDS: PANTOPRAZOLE SODIUM 20 MG TABLET.DR PO SCH (05:15)
[2019-12-06] MEDS: RINGERS SOLUTION,LACTATED 1,000 ML IV PRN (05:45)
--- NOTE | 2019-12-06 09:43 | PDOC PROGRESS REPORT ---
Subjective Progress Note for:: 12/06/19 Subjective:: 11/29/19 16:50 BUTCH BAILEY MD The patient is a 69-year-old male with history of COPD, history of Present Illness: JOSE L FAROOQ is a 69 year old male with history of COPD, coronary artery disease status post CABG and multiple coronary interventions, heart failure with reduced ejection fraction, peripheral vascular disease status post aortoiliac bypass graft, smoker in remission who was admitted on 11/29/2019 with decompensated heart failure. He had been followed by my partner, Dr. Ivey. A review of Dr. Ivey's notes as well as the hospitalist service reveals that he was found to be anemic and his heart failure had been attributed to his anemia. He received iron infusion with improvement in his symptoms. He was also found to have nosocomial pneumonia and is currently treated for it. He is followed by [facility]. He feels well this morning and specifically denies chest pain, shortness of breath, lower extremity edema, palpitations, syncope and presyncope. He is telemetry shows normal sinus rhythm with PACs and PVCs. His most recent chemistry is remarkable for hyponatremia with a sodium of 129, normal potassium and normal renal function. His fluid balance since admission is +4.6 L. Physical exam on 12/06/2019: GENERAL: Pleasant and conversational. Oriented x3 with normal mood. Looks chronically ill. Pale. Not in acute distress. Well groomed and well dev eloped. HEENT: Normocephalic, atraumatic. Pupils equal. Sclerae anicteric. Oropharynx moist. NECK: No JVD. No carotid bruits. LUNGS: Coarse breath sounds bilaterally. Normal respiratory effort without the use of accessory muscles or intercostal retractions. CARDIOVASCULAR: Regular rate and rhythm, normal S1 and S2 without murmurs, rubs, or gallops. PMI not displaced. EXTREMITIES: No edema, no cyanosis, no clubbing. +2 pulses femoral and pedal pulses bilaterally. SKIN: No lesions or rashes. MUSCULOSKELETAL: No chest tenderness to palpation. NEUROLOGIC: Nonfocal. No gross sensory or motor deficits bilateral upper or lower extremities. Cardiac studies: Echocardiogram on 11/29/2019: -LV systolic function is mildly reduced. -EF 40 to 45%. -Mild to moderate RVE. -Mild to moderate MR, trace AI, mild TR. -Mild pulmonary hypertension. Reason For Visit: ACUTE SYSTOLIC HEART FAILURE, MICROCYTIC ANEMIA Physical Exam Vital Signs: Temp Pulse Resp BP Pulse Ox 97.6 F 75 16 133/70 H 100 12/06/19 04:23 12/06/19 04:23 12/06/19 04:23 12/06/19 04:23 12/06/19 04:23 Intake & Output 12/05/19 12/06/19 12/07/19 06:59 06:59 06:59 Intake Total 2378 2526 Output Total 1600 675 Balance 778 1851 Weight 59.3 kg 59.3 kg Results Laboratory Results: 12/04/19 09:23 12/05/19 10:53 12/05/19 10:53 Sodium 129.8 L Potassium 4.5 Chloride 98 Carbon Dioxide 26 Anion Gap 6 BUN 12 Creatinine 0.67 Est GFR ( Amer) > 60 Glucose 116 H Calcium 8.4 Total Bilirubin 0.5 AST 29 Alkaline Phosphatase 55 Total Protein 6.2 L Albumin 3.1 L 11/29/19 11/29/19 11/29/19 18:14 21:16 21:16 Creatine Kinase 750 H CK-MB (CK-2) 13.70 H Troponin I < 0.012 NT-Pro-B Natriuret Pep 5020 H 11/30/19 11/30/19 11/30/19 05:13 05:13 13:02 Creatine Kinase 486 H 476 H CK-MB (CK-2) 8.94 H Troponin I 0.012 NT-Pro-B Natriuret Pep 11/30/19 13:02 Creatine Kinase CK-MB (CK-2) 11.50 H Troponin I < 0.012 NT-Pro-B Natriuret Pep Impressions: Chest CT 11/30/19 00:00 IMPRESSION: STABLE CHRONIC EMPHYSEMATOUS CHANGES AND CHRONIC SCARRING IN THE RIGHT LUNG BASE. NO ACUTE FINDING ON NON-CONTRASTED CHEST CT. Chest/Abdomen CTA 12/02/19 00:00 IMPRESSION: No emboli visualized in the main pulmonary arteries or the segmental branches.New multifocal patchy -nodular airspace opacities throughout the left lower lobe with more dense consolidation in the inferior-posterior segments. Similar nodular opacities in the right lower lobe. No pleural effusion. Chest X-Ray 12/04/19 00:00 IMPRESSION: Improved aeration. PICC Line Insertion 12/04/19 13:49 IMPRESSION: SUCCESSFUL PLACEMENT OF A 5 FR DUAL LUMEN 47 CM PICC IN THE LEFT BASILIC VEIN. 12/04/19 09:23 12/05/19 10:53 MCV 72 fl (80-97) L 12/04/19 09:23 MCH 22.4 pg (27.0-33.4) L 12/04/19 09:23 MCHC 31.1 g/dL (32.0-36.0) L 12/04/19 09:23 RDW 19.8 % (11.5-14.0) H 12/04/19 09:23 Seg Neutrophils % Not Reportable 12/04/19 09:23 Chloride 98 mmol/L (98-107) 12/05/19 10:53 Carbon Dioxide 26 mmol/L (22-30) 12/05/19 10:53 Anion Gap 6 (5-19) 12/05/19 10:53 Est GFR ( Amer) > 60 (>60) 12/05/19 10:53 Glucose 116 mg/dL (75-110) H 12/05/19 10:53 Calcium 8.4 mg/dL (8.4-10.2) 12/05/19 10:53 Magnesium 2.2 mg/dL (1.6-2.3) 11/30/19 05:13 Iron 25.6 ug/dL (49-181) L 11/29/19 18:14 TIBC 514 ug/dL (250-450) H 11/29/19 18:14 % Saturation 5 % 11/29/19 18:14 Ferritin 8.11 ng/mL (17.9-464.0) L 11/29/19 18:14 Total Bilirubin 0.5 mg/dL (0.2-1.3) 12/05/19 10:53 AST 29 U/L (17-59) 12/05/19 10:53 Alkaline Phosphatase 55 U/L (38-126) 12/05/19 10:53 Total Protein 6.2 g/dL (6.3-8.2) L 12/05/19 10:53 Albumin 3.1 g/dL (3.5-5.0) L 12/05/19 10:53 TSH 0.36 uIU/mL (0.47-4.68) L 11/29/19 18:14 TSH Cancelled 11/29/19 18:14 Free T4 1.63 ng/dL (0.78-2.19) 11/29/19 18:14 Free T3 pg/mL 3.76 pg/mL (2.77-5.27) 11/29/19 18:14 Urine Color YELLOW 12/03/19 12:28 Urine Appearance CLEAR 12/03/19 12:28 Urine pH 5.0 (5.0-9.0) 12/03/19 12:28 Ur Specific [place] 1.023 12/03/19 12:28 Urine Protein NEGATIVE mg/dL (NEGATIVE) 12/03/19 12:28 Urine Glucose (UA) NEGATIVE mg/dL (NEGATIVE) 12/03/19 12:28 Urine Ketones NEGATIVE mg/dL (NEGATIVE) 12/03/19 12:28 Urine Blood NEGATIVE (NEGATIVE) 12/03/19 12:28 Urine Nitrite NEGATIVE (NEGATIVE) 12/03/19 12:28 Ur Leukocyte Esterase NEGATIVE (NEGATIVE) 12/03/19 12:28 Urine WBC (Auto) 0 /HPF 12/03/19 12:28 Urine RBC (Auto) 1 /HPF 12/03/19 12:28 11/29/19 11/29/19 11/29/19 18:14 21:16 21:16 Creatine Kinase 750 H CK-MB (CK-2) 13.70 H Troponin I < 0.012 NT-Pro-B Natriuret Pep 5020 H 11/30/19 11/30/19 11/30/19 05:13 05:13 13:02 Creatine Kinase 486 H 476 H CK-MB (CK-2) 8.94 H Troponin I 0.012 NT-Pro-B Natriuret Pep 11/30/19 13:02 Creatine Kinase CK-MB (CK-2) 11.50 H Troponin I < 0.012 NT-Pro-B Natriuret Pep Current Medication List Generic Name Dose Route Start Last Admin Trade Name Freq PRN Reason Stop Dose Admin Acetaminophen 650 mg 12/03/19 00:42 12/05/19 19:42 Tylenol 325 Mg Tablet PO 01/02/20 00:41 650 mg Q4HP PRN Administration PAIN Albuterol 2 puff 11/29/19 21:18 Ventolin Hfa 8 Gm Mdi IH 12/29/19 21:17 Q4HP PRN SHORTNESS OF BREATH Albuterol/Ipratropium 3 ml 12/05/19 15:36 12/06/19 00:30 Duoneb 3 Ml Ampul NEB 01/04/20 15:35 3 ml RTQ6HP PRN Administration SHORTNESS OF BREATH Atorvastatin Calcium 20 mg 11/29/19 22:00 12/05/19 21:50 Lipitor 20 Mg Tablet PO 12/29/19 21:59 20 mg QHS SHREYA Administration Bisacodyl 20 mg 12/04/19 18:42 12/05/19 10:44 Dulcolax 5 Mg Tablet PO 01/03/20 18:41 20 mg DAILYP PRN Administration CONSTIPATION Enoxaparin Sodium 40 mg 11/30/19 22:00 12/05/19 21:52 Lovenox Inj 40 Mg/0.4 Ml Disp.Syrin SUBCUT 12/29/19 21:59 40 mg QHS SHREYA Administration Fluticasone/Vilanterol 1 inh 11/29/19 22:00 12/05/19 10:16 Breo 200-25 Mcg Ellipta 14 Dose/Dpi IH 12/29/19 21:59 1 inhaler DAILY SHREYA Administration Heparin Sodium (Porcine) 30 unit 12/05/19 22:00 12/05/19 21:53 Heparin Flush 10 Unit/Ml 5 Ml Disp.Syrg IV 01/04/20 21:59 30 unit Q12 SHREYA Administration Heparin Sodium (Porcine) 30 unit 12/05/19 14:00 Heparin Flush 10 Unit/Ml 5 Ml Disp.Syrg IV 01/04/20 13:59 .AFTER EACH USE PRN Ferric Carboxymaltose 750 mg/ 265 mls @ 1,060 mls/hr 11/29/19 22:00 11/30/19 11:13 Sodium Chloride IV 12/29/19 21:59 Infused Th@2200 SHREYA Infusion Meropenem 1 gm/ Sodium 50 mls @ 100 mls/hr 12/02/19 22:00 12/06/19 05:45 Chloride IV 12/09/19 21:59 Infused Q8 SHREYA Infusion Linezolid 600 mg in 300 mls @ 300 mls/hr 12/03/19 10:00 12/05/19 22:48 Zyvox Rtu 600 Mg/300 Ml Premixed IV 12/10/19 09:59 Infused Q12 SHREYA Infusion Lactated Ringer's 1,000 mls @ 50 mls/hr 12/03/19 20:20 12/06/19 05:45 Lactated Ringers 1000 Ml Iv Soln IV 01/02/20 20:19 50 mls/hr CONTINUOUS PRN Administration THIS MED IS NOT "PRN" Levofloxacin 750 mg 12/05/19 10:00 12/05/19 10:15 Levaquin 750 Mg Tablet PO 12/12/19 09:59 750 mg Q2D@1000 SHREYA Administration Metoprolol Succinate 25 mg 12/06/19 10:00 Toprol Xl 25 Mg Tab.Sr PO 01/05/20 09:59 DAILY SHREYA Morphine Sulfate 60 mg 12/04/19 10:00 12/05/19 21:50 Ms-Contin Sr 30 Mg Tablet PO 12/11/19 09:59 60 mg Q12 SHREYA Administration Ondansetron HCl 8 mg 11/30/19 16:16 12/01/19 19:20 Zofran 8 Mg Tablet PO 12/30/19 16:15 8 mg Q6HP PRN Administration NAUSEA Ondansetron HCl 4 mg 12/01/19 21:39 12/04/19 10:31 Zofran Inj/Pf 4 Mg/2 Ml Sdv IV 12/31/19 21:38 4 mg Q6HP PRN Administration NAUSEA Pantoprazole Sodium 20 mg 11/30/19 06:00 12/06/19 05:[address] Tablet PO 12/30/19 05:59 20 mg Q6AM SHREYA Administration Pharmacy Profile Note 1 each 11/30/19 18:00 12/05/19 17:11 Medication Communication Order 12/30/19 17:59 Not Given 1800 SHREYA Sodium Chloride 10 ml 12/05/19 22:00 12/05/19 21:54 Nacl 0.9% Inj/Pf 10 Ml Sdv IV 01/04/20 21:59 10 ml Q12 SHREYA Administration Sodium Chloride 10 ml 12/05/19 14:00 Nacl 0.9% Inj/Pf 10 Ml Sdv IV 01/04/20 13:59 .AFTER EACH USE PRN Tamsulosin HCl 0.4 mg 11/29/19 22:00 12/05/19 17:12 Flomax 0.4 Mg Cap.Sr PO 12/29/19 21:59 0.4 mg QPM SHREYA Administration Umeclidinium [place] 1 inh 11/29/19 22:00 12/05/19 10:16 Incruse 62.5 Mcg Ellipta 7 Dose/Dpi IH 12/29/19 21:59 1 inhaler DAILY SHREYA Administration Discontinued Medications Generic Name Dose Route Start Last Admin Trade Name Freq PRN Reason Stop Dose Admin Acetaminophen Confirm 12/03/19 00:22 12/03/19 00:49 Tylenol 325 Mg Tablet Administered 12/03/19 00:23 325 mg Dose Administration 325 mg .ROUTE .STK-MED ONE Albuterol Confirm 12/02/19 02:54 12/02/19 03:03 Ventolin Hfa 8 Gm Mdi Administered 12/02/19 02:55 Not Given Dose 60 puff IH .STK-MED ONE Enoxaparin Sodium 40 mg 11/29/19 22:00 11/29/19 22:11 Lovenox Inj 40 Mg/0.4 Ml Disp.Syrin SUBCUT 12/29/19 21:59 40 mg DAILY SHREYA Administration Enoxaparin Sodium 40 mg 11/29/19 22:15 11/30/19 00:27 Lovenox Inj 40 Mg/0.4 Ml Disp.Syrin SUBCUT 11/29/19 22:16 Not Given NOW ONE Furosemide 40 mg 12/01/19 14:45 12/02/19 09:29 Lasix 40 Mg Tablet PO 12/31/19 14:44 40 mg DAILY SHREYA Administration Heparin Sodium (Porcine) Confirm 12/04/19 15:54 12/04/19 16:42 Heparin Flush 10 Unit/Ml 5 Ml Disp.Syrg Administered 12/04/19 15:55 Not Given Dose 50 unit IV .STK-MED ONE Furosemide 250 mg/ Sodium 250 mls @ 1 mls/hr 11/29/19 19:56 12/01/19 15:19 Chloride IV 12/29/19 19:55 Infused CONTINUOUS PRN Infusion THIS MED IS NOT "PRN" 1 MG/HR Sodium Chloride 1,000 mls @ 50 mls/hr 12/02/19 13:06 Nacl 0.9% 1000 Ml Iv Soln IV 01/01/20 13:05 CONTINUOUS PRN THIS MED IS NOT "PRN" Sodium Chloride 1,000 mls @ 50 mls/hr 12/02/19 16:14 Nacl 0.9% 1000 Ml Iv Soln IV 01/01/20 16:13 CONTINUOUS PRN THIS MED IS NOT "PRN" Sodium Chloride 250 mls @ 50 mls/hr 12/02/19 16:30 12/02/19 21:55 Nacl 0.9% 250 Ml Iv Soln IV 12/02/19 21:29 Infused BOLUS ONE Infusion Meropenem 1 gm/ Sodium 50 mls @ 100 mls/hr 12/02/19 18:00 Chloride IV 12/09/19 17:59 Q8 SHREYA Linezolid 600 mg in 300 mls @ 300 mls/hr 12/02/19 18:00 12/02/19 18:59 Zyvox Rtu 600 Mg/300 Ml Premixed IV 12/09/19 17:59 Not Given Q12A SHREYA Linezolid 600 mg in 300 mls @ 300 mls/hr 12/02/19 22:00 12/02/19 22:20 Zyvox Rtu 600 Mg/300 Ml Premixed IV 12/09/19 17:59 Infused Q12 SHREYA Infusion Sodium Chloride 500 mls @ 0 mls/hr 12/02/19 19:30 12/02/19 20:16 Nacl 0.9% 500 Ml Iv Soln IV 12/02/19 19:31 Infused BOLUS ONE Infusion Linezolid Confirm 12/02/19 19:25 12/02/19 19:53 Zyvox Rtu 600 Mg/300 Ml Premixed Administered 12/02/19 19:26 Not Given Dose 600 mg in 300 mls @ ud IV .STK-MED ONE Dopamine HCl/Dextrose 800 mg in 250 mls @ 0 mls/hr 12/02/19 23:54 12/03/19 00:27 Dopamine Rtu 800 Mg-D5w 250 Ml (Adult) Premix IV 01/01/20 23:53 4.9 mls/hr CONTINUOUS PRN 4.9 mls/hr THIS MED IS NOT "PRN" Administration Protocol Titrate Dopamine HCl/Dextrose 800 mg in 250 mls @ 0 mls/hr 12/03/19 21:55 Dopamine Rtu 800 Mg-D5w 250 Ml (Adult) Premix IV 01/02/20 21:54 CONTINUOUS PRN THIS MED IS NOT "PRN" Protocol Titrate Dopamine HCl/Dextrose 800 mg in 250 mls @ 0 mls/hr 12/03/19 22:26 12/05/19 09:45 Dopamine Rtu 800 Mg-D5w 250 Ml (Adult) Premix IV 01/02/20 22:25 0 mls/hr CONTINUOUS PRN 0 mls/hr THIS MED IS NOT "PRN" Titration Protocol Titrate Levofloxacin 750 mg 12/02/19 06:00 12/03/19 09:59 Levaquin 750 Mg Tablet PO 12/09/19 05:59 750 mg DAILY SHREYA Administration Meropenem 1 gm 12/02/19 18:08 Merrem 1 Gm Vial IV 12/03/19 07:00 ASDIR PRN Meropenem Confirm 12/02/19 19:24 12/02/19 19:52 Merrem 1 Gm Vial Administered 12/02/19 19:25 Not Given Dose 1 gm .ROUTE .STK-MED ONE Meropenem Confirm 12/02/19 19:31 12/02/19 19:53 Merrem 1 Gm Vial Administered 12/02/19 19:32 Not Given Dose 1 gm .ROUTE .STK-MED ONE Metoprolol Succinate 25 mg 11/29/19 22:00 11/29/19 22:10 Toprol Xl 25 Mg Tab.Sr PO 12/29/19 21:59 25 mg DAILY SHREYA Administration Metoprolol Succinate 25 mg 11/30/19 22:00 12/01/19 22:09 Toprol Xl 25 Mg Tab.Sr PO 12/30/19 21:59 25 mg QHS SHREYA Administration Metoprolol Succinate 25 mg 11/29/19 22:30 11/30/19 00:27 Toprol Xl 25 Mg Tab.Sr PO 11/29/19 22:31 Not Given NOW ONE Metoprolol Succinate 25 mg 12/05/19 16:20 Toprol Xl 25 Mg Tab.Sr PO 01/04/20 16:19 DAILYP PRN IF SBP > 100 Morphine Sulfate 60 mg 11/29/19 22:00 12/03/19 10:00 Ms-Contin Sr 30 Mg Tablet PO 12/06/19 21:59 Not Given Q12 SHREYA Morphine Sulfate 60 mg 12/03/19 17:30 12/03/19 17:08 Ms-Contin Sr 30 Mg Tablet PO 12/03/19 17:31 60 mg NOW ONE Administration Phentolamine Mesylate 5 mg 12/03/19 10:30 12/03/19 10:45 Regitine Inj 5 Mg Vial INFIL 12/03/19 10:31 5 mg NOW ONE Administration Sacubitril/Valsartan 1 tab 11/29/19 22:00 11/30/19 17:38 Entresto 24 Mg/26 Mg Tablet PO 12/29/19 21:59 1 tab BID SHREYA Administration Sacubitril/Valsartan 1 tab 12/01/19 10:00 12/02/19 09:30 Entresto 49 Mg/51 Mg Tablet PO 12/31/19 09:59 1 tab BID SHREYA Administration Assessment & Plan - Diagnosis (1) Anemia Qualifiers: Anemia type: iron deficiency Is this a current diagnosis for this admission?: Yes Plan: No evidence of active bleeding. He has been treated with iron infusion and his hemoglobin is stable. Recommendations: -GI evaluation. -Further treatment per hospitalist team. (2) CAD (coronary artery disease) Qualifiers: Coronary Disease-Associated Artery/Lesion type: [place] artery [place] vs. transplanted heart: [place] heart Associated angina: without angina Qualified Code(s): I25.10 - Atherosclerotic heart disease of [place] coronary artery without angina pectoris Is this a current diagnosis for this admission?: Yes Plan: No evidence of cardiac ischemia at this point. Recommendations: -Continue with current medical management. -Given anemia should try to keep hemoglobin above 8 g/dL given coronary artery disease and CABG. -May be reasonable to hold off on antiplatelet therapy until anemia is fully evaluated. -Outpatient follow-up with [facility]. (3) CHF (congestive heart failure), NYHA class II Qualifiers: Congestive heart failure type: systolic Congestive heart failure chronicity: acute on chronic Qualified Code(s): I50.23 - Acute on chronic systolic (congestive) heart failure Is this a current diagnosis for this admission?: Yes Plan: He had been tolerating low-dose metoprolol. His blood pressure is at goal alt della on the low side at times. Even though he does not have overt clinical evidence of decompensated heart failure his fluid balance since admission is +4.6 L therefore he will need some diuresis. Recommendations: -Diuresis with Lasix 20 mg IV daily. -Restart Entresto at low-dose of 24 mg / 26 mg twice daily as tolerated by blood pressure. -Restrict fluid intake to 1500 cc daily. -Low sodium diet, less than 1500 mg daily. -Strict intake and output. -Daily weights. -Continue to correct anemia. -BNP today and BMP daily, use pediatric tubes to avoid worsening anemia. (4) ANN (acute kidney injury) Is this a current diagnosis for this admission?: Yes Plan: Now resolved. We will continue to follow-up clinically and with labs. (5) Nosocomial pneumonia Is this a current diagnosis for this admission?: Yes Plan: Receiving antibiotics with clinical improvement. Further management per primary team.
[2019-12-06] MEDS: FLUTICASONE/VILANTEROL 200-25 MCG/DOSE IH SCH (10:55)
[2019-12-06] MEDS: UMECLIDINIUM BROMIDE 62.5 MCG/DOSE IH SCH (10:56)
[2019-12-06] MEDS: MORPHINE SULFATE SR 30 MG TABLET PO SCH ×2 (10:57→23:18)
[2019-12-06] MEDS: NORMAL SALINE 10 ML SDV (SCHEDULED) IV SCH ×2 (10:58→23:19)
[2019-12-06] MEDS: FUROSEMIDE INJ/PF 20 MG/2 ML SDV IV SCH (10:58)
[2019-12-06] MEDS: METOPROLOL SUCCINATE 25 MG TAB.SR.24H PO SCH (10:58)
[2019-12-06] MEDS: SACUBITRIL/VALSARTAN 24 MG/26 MG TABLET PO SCH ×2 (10:58→23:24)
[2019-12-06] MEDS: BISACODYL 5 MG TABEC PO PRN (11:04)
[2019-12-06] MEDS: LINEZOLID 600 MG/300 ML RTUPB IV SCH ×2 (11:07→23:21)
[2019-12-06 13:30] LABS: ANION GAP 6 (5-19); BLOOD UREA NITROGEN 10 mg/dL (7-20); CALCIUM 8.5 mg/dL (8.4-10.2); CARBON DIOXIDE 26 mmol/L (22-30); CHLORIDE 97 mmol/L (98-107); GLUCOSE 113 mg/dL (75-110); POTASSIUM 4.3 mmol/L (3.6-5.0)
[2019-12-06 13:42] LABS: ALKALINE PHOSPHATASE 47 U/L (38-126); ASPARTATE AMINO TRANSFERASE 33 U/L (17-59); BILIRUBIN,TOTAL 0.3 mg/dL (0.2-1.3); TOTAL PROTEIN 5.8 g/dL (6.3-8.2)
[2019-12-06] MEDS: PHARMACY COMMUNICATION ORDER MC SCH (17:21)
[2019-12-06] MEDS: TAMSULOSIN HCL 0.4 MG CAP.SR.24H PO SCH (17:41)
--- NOTE | 2019-12-06 20:18 | PDOC PROGRESS REPORT ---
Subjective Progress Note for:: 12/06/19 Subjective:: Patient seen by the bedside,, He is making improvements hopefully discharge home in the morning Reason For Visit: ACUTE SYSTOLIC HEART FAILURE, MICROCYTIC ANEMIA Physical Exam Vital Signs: Temp Pulse Resp BP Pulse Ox 97.7 F 81 16 140/81 H 98 12/06/19 16:25 12/06/19 16:55 12/06/19 16:55 12/06/19 16:25 12/06/19 16:55 Intake & Output 12/05/19 12/06/19 12/07/19 06:59 06:59 06:59 Intake Total 2378 2576 1428 Output Total 1600 1175 1775 Balance 778 1401 -347 Weight 59.3 kg 62.9 kg General appearance: PRESENT: no acute distress Eye exam: PRESENT: PERRLA Respiratory exam: PRESENT: clear to auscultation josselyn Cardiovascular exam: PRESENT: +S1, +S2 GI/Abdominal exam: PRESENT: soft Neurological exam: PRESENT: alert Results Laboratory Results: 12/04/19 09:23 12/06/19 11:20 12/06/19 11:20 Sodium 129.1 L Potassium 4.3 Chloride 97 L Carbon Dioxide 26 Anion Gap 6 BUN 10 Creatinine 0.58 Est GFR ( Amer) > 60 Glucose 113 H Calcium 8.5 Total Bilirubin 0.3 AST 33 Alkaline Phosphatase 47 Total Protein 5.8 L Albumin 3.0 L 11/29/19 11/29/19 11/29/19 18:14 21:16 21:16 Creatine Kinase 750 H CK-MB (CK-2) 13.70 H Troponin I < 0.012 NT-Pro-B Natriuret Pep 5020 H 11/30/19 11/30/19 11/30/19 05:13 05:13 13:02 Creatine Kinase 486 H 476 H CK-MB (CK-2) 8.94 H Troponin I 0.012 NT-Pro-B Natriuret Pep 11/30/19 12/06/19 13:02 11:20 Creatine Kinase CK-MB (CK-2) 11.50 H Troponin I < 0.012 NT-Pro-B Natriuret Pep 3080 H Impressions: Chest CT 11/30/19 00:00 IMPRESSION: STABLE CHRONIC EMPHYSEMATOUS CHANGES AND CHRONIC SCARRING IN THE RIGHT LUNG BASE. NO ACUTE FINDING ON NON-CONTRASTED CHEST CT. Chest/Abdomen CTA 12/02/19 00:00 IMPRESSION: No emboli visualized in the main pulmonary arteries or the segmental branches.New multifocal patchy -nodular airspace opacities throughout the left lower lobe with more dense consolidation in the inferior-posterior segments. Similar nodular opacities in the right lower lobe. No pleural eff usion. Chest X-Ray 12/04/19 00:00 IMPRESSION: Improved aeration. PICC Line Insertion 12/04/19 13:49 IMPRESSION: SUCCESSFUL PLACEMENT OF A 5 FR DUAL LUMEN 47 CM PICC IN THE LEFT BASILIC VEIN. Assessment & Plan - Diagnosis (1) Acute systolic heart failure Is this a current diagnosis for this admission?: Yes Plan: stable (2) Iron deficiency anemia Qualifiers: Iron deficiency anemia type: chronic blood loss Qualified Code(s): D50.0 - Iron deficiency anemia secondary to blood loss (chronic) Is this a current diagnosis for this admission?: Yes Plan: Patient to receive second dose of Injectafer today (3) COPD (chronic obstructive pulmonary disease) Qualifiers: COPD type: unspecified COPD Qualified Code(s): J44.9 - Chronic obstructive pulmonary disease, unspecified Is this a current diagnosis for this admission?: Yes (4) CAD (coronary artery disease) Qualifiers: Coronary Disease-Associated Artery/Lesion type: [place] artery [place] vs. transplanted heart: [place] heart Associated angina: without angina Qualified Code(s): I25.10 - Atherosclerotic heart disease of [place] coronary artery without angina pectoris Is this a current diagnosis for this admission?: Yes (5) Nosocomial pneumonia Is this a current diagnosis for this admission?: Yes Plan: Continue IV antibiotic (6) Hypotension Qualifiers: Hypotension type: idiopathic hypotension Qualified Code(s): I95.0 - Idiopathic hypotension Is this a current diagnosis for this admission?: Yes (7) ANN (acute kidney injury) Is this a current diagnosis for this admission?: Yes Plan: Resolved (8) Chronic pain syndrome Is this a current diagnosis for this admission?: Yes - Time Time Spent with patient: 25-34 minutes Level of Care: IMCU
[2019-12-06] MEDS: FERRIC CARBOXYMALTOSE 750 MG in NORMAL SALINE 250 ML IV SCH (23:00)
[2019-12-06] MEDS: ENOXAPARIN SODIUM INJ 40 MG/0.4 ML DISP.SYRIN SUBCUT SCH (23:17)
[2019-12-06] MEDS: ATORVASTATIN CALCIUM 20 MG TABLET PO SCH (23:18)
[2019-12-07] MEDS: PANTOPRAZOLE SODIUM 20 MG TABLET.DR PO SCH (06:01)
[2019-12-07] MEDS: MEROPENEM 1 GM in NORMAL SALINE 50 ML IV SCH ×3 (06:01→21:31)
[2019-12-07] MEDS: IPRATROPIUM/ALBUTEROL 0.5-2.5 MG/3 ML AMPUL NEB PRN ×4 (07:53→20:12)
--- NOTE | 2019-12-07 10:00 | PDOC PROGRESS REPORT ---
Subjective Progress Note for:: 12/07/19 Subjective:: 11/29/19 16:50 BUTCH BAILEY MD The patient is a 69-year-old male with history of COPD, history of Present Illness: JOSE L FAROOQ is a 69 year old male with history of COPD, coronary artery disease status post CABG and multiple coronary interventions, heart failure with reduced ejection fraction, peripheral vascular disease status post aortoiliac bypass graft, smoker in remission who was admitted on 11/29/2019 with decompensated heart failure. He had been followed by my partner, Dr. Ivey. A review of Dr. Ivey's notes as well as the hospitalist service reveals that he was found to be anemic and his heart failure had been attributed to his anemia. He received iron infusion with improvement in his symptoms. He was also found to have nosocomial pneumonia and is currently treated for it. He is followed by [facility]. He feels well this morning and specifically denies chest pain, shortness of breath, lower extremity edema, palpitations, syncope and presyncope. He is telemetry shows normal sinus rhythm with PACs and PVCs. His most recent chemistry is remarkable for hyponatremia with a sodium of 129, normal potassium and normal renal function. His fluid balance since admission is +4.6 L. 12/07/2019: The patient had an uneventful night. He is found sitting up in bed eating breakfast. He feels "great" and specifically denies chest pain, shortness of breath, lower extremity edema, palpitations, syncope and presyncope. His telemetry shows normal sinus rhythm with PVCs and episodes of ventricular bigeminy. His fluid restriction has not been enforced and he is now 6.1 L positive. He continues to be hyponatremic. Physical exam on 12/07/2019: GENERAL: Pleasant and conversational. Oriented x3 with normal mood. Looks chronically ill. Pale. Not in acute distress. Well groomed and well developed. HEENT: Normocephalic, atraumatic. Pupils equal. Sclerae anicteric. Oropharynx moist. NECK: No JVD. No carotid bruits. LUNGS: Clear to auscultation bilaterally. Normal respiratory effort without the use of accessory muscles or intercostal retractions. CARDIOVASCULAR: Regular rate and rhythm, normal S1 and S2 without murmurs, rubs, or gallops. PMI not displaced. EXTREMITIES: No edema, no cyanosis, no clubbing. +2 pulses femoral and pedal pulses bilaterally. SKIN: No lesions or rashes. MUSCULOSKELETAL: No chest tenderness to palpation. NEUROLOGIC: Nonfocal. No gross sensory or motor deficits bilateral upper or lower extremities. Cardiac studies: Echocardiogram on 11/29/2019: -LV systolic function is mildly reduced. -EF 40 to 45%. -Mild to moderate RVE. -Mild to moderate MR, trace AI, mild TR. -Mild pulmonary hypertension. Reason For Visit: ACUTE SYSTOLIC HEART FAILURE, MICROCYTIC ANEMIA Physical Exam Vital Signs: Temp Pulse Resp BP Pulse Ox 97.4 F 78 16 134/79 H 98 12/07/19 08:03 12/07/19 08:03 12/07/19 08:03 12/07/19 08:03 12/07/19 08:03 Intake & Output 12/06/19 12/07/19 12/08/19 06:59 06:59 06:59 Intake Total 2576 3493 Output Total 1175 2150 Balance 1401 1343 Weight 62.9 kg 64.6 kg Results Laboratory Results: 12/04/19 09:23 12/06/19 11:20 12/06/19 11:20 Sodium 129.1 L Potassium 4.3 Chloride 97 L Carbon Dioxide 26 Anion Gap 6 BUN 10 Creatinine 0.58 Est GFR ( Amer) > 60 Glucose 113 H Calcium 8.5 Total Bilirubin 0.3 AST 33 Alkaline Phosphatase 47 Total Protein 5.8 L Albumin 3.0 L 11/29/19 11/29/19 11/29/19 18:14 21:16 21:16 Creatine Kinase 750 H CK-MB (CK-2) 13.70 H Troponin I < 0.012 NT-Pro-B Natriuret Pep 5020 H 11/30/19 11/30/19 11/30/19 05:13 05:13 13:02 Creatine Kinase 486 H 476 H CK-MB (CK-2) 8.94 H Troponin I 0.012 NT-Pro-B Natriuret Pep 11/30/19 12/06/19 13:02 11:20 Creatine Kinase CK-MB (CK-2) 11.50 H Troponin I < 0.012 NT-Pro-B Natriuret Pep 3080 H Impressions: Chest CT 11/30/19 00:00 IMPRESSION: STABLE CHRONIC EMPHYSEMATOUS CHANGES AND CHRONIC SCARRING IN THE RIGHT LUNG BASE. NO ACUTE FINDING ON NON-CONTRASTED CHEST CT. Chest/Abdomen CTA 12/02/19 00:00 IMPRESSION: No emboli visualized in the main pulmonary arteries or the segmental branches.New multifocal patchy -nodular airspace opacities throughout the left lower lobe with more dense consolidation in the inferior-posterior s egments. Similar nodular opacities in the right lower lobe. No pleural effusion. Chest X-Ray 12/04/19 00:00 IMPRESSION: Improved aeration. PICC Line Insertion 12/04/19 13:49 IMPRESSION: SUCCESSFUL PLACEMENT OF A 5 FR DUAL LUMEN 47 CM PICC IN THE LEFT BASILIC VEIN. 12/04/19 09:23 12/06/19 11:20 MCV 72 fl (80-97) L 12/04/19 09:23 MCH 22.4 pg (27.0-33.4) L 12/04/19 09:23 MCHC 31.1 g/dL (32.0-36.0) L 12/04/19 09:23 RDW 19.8 % (11.5-14.0) H 12/04/19 09:23 Seg Neutrophils % Not Reportable 12/04/19 09:23 Chloride 97 mmol/L (98-107) L 12/06/19 11:20 Carbon Dioxide 26 mmol/L (22-30) 12/06/19 11:20 Anion Gap 6 (5-19) 12/06/19 11:20 Est GFR ( Amer) > 60 (>60) 12/06/19 11:20 Glucose 113 mg/dL (75-110) H 12/06/19 11:20 Calcium 8.5 mg/dL (8.4-10.2) 12/06/19 11:20 Magnesium 2.2 mg/dL (1.6-2.3) 11/30/19 05:13 Iron 25.6 ug/dL (49-181) L 11/29/19 18:14 TIBC 514 ug/dL (250-450) H 11/29/19 18:14 % Saturation 5 % 11/29/19 18:14 Ferritin 8.11 ng/mL (17.9-464.0) L 11/29/19 18:14 Total Bilirubin 0.3 mg/dL (0.2-1.3) 12/06/19 11:20 AST 33 U/L (17-59) 12/06/19 11:20 Alkaline Phosphatase 47 U/L (38-126) 12/06/19 11:20 Total Protein 5.8 g/dL (6.3-8.2) L 12/06/19 11:20 Albumin 3.0 g/dL (3.5-5.0) L 12/06/19 11:20 TSH 0.36 uIU/mL (0.47-4.68) L 11/29/19 18:14 TSH Cancelled 11/29/19 18:14 Free T4 1.63 ng/dL (0.78-2.19) 11/29/19 18:14 Free T3 pg/mL 3.76 pg/mL (2.77-5.27) 11/29/19 18:14 Urine Color YELLOW 12/03/19 12:28 Urine Appearance CLEAR 12/03/19 12:28 Urine pH 5.0 (5.0-9.0) 12/03/19 12:28 Ur Specific [place] 1.023 12/03/19 12:28 Urine Protein NEGATIVE mg/dL (NEGATIVE) 12/03/19 12:28 Urine Glucose (UA) NEGATIVE mg/dL (NEGATIVE) 12/03/19 12:28 Urine Ketones NEGATIVE mg/dL (NEGATIVE) 12/03/19 12:28 Urine Blood NEGATIVE (NEGATIVE) 12/03/19 12:28 Urine Nitrite NEGATIVE (NEGATIVE) 12/03/19 12:28 Ur Leukocyte Esterase NEGATIVE (NEGATIVE) 12/03/19 12:28 Urine WBC (Auto) 0 /HPF 12/03/19 12:28 Urine RBC (Auto) 1 /HPF 12/03/19 12:28 11/29/19 11/29/19 11/29/19 18:14 21:16 21:16 Creatine Kinase 750 H CK-MB (CK-2) 13.70 H Troponin I < 0.012 NT-Pro-B Natriuret Pep 5020 H 11/30/19 11/30/19 11/30/19 05:13 05:13 13:02 Creatine Kinase 486 H 476 H CK-MB (CK-2) 8.94 H Troponin I 0.012 NT-Pro-B Natriuret Pep 11/30/19 12/06/19 13:02 11:20 Creatine Kinase CK-MB (CK-2) 11.50 H Troponin I < 0.012 NT-Pro-B Natriuret Pep 3080 H Current Medication List Generic Name Dose Route Start Last Admin Trade Name Freq PRN Reason Stop Dose Admin Acetaminophen 650 mg 12/03/19 00:42 12/05/19 19:42 Tylenol 325 Mg Tablet PO 01/02/20 00:41 650 mg Q4HP PRN Administration PAIN Albuterol 2 puff 11/29/19 21:18 Ventolin Hfa 8 Gm Mdi IH 12/29/19 21:17 Q4HP PRN SHORTNESS OF BREATH Albuterol/Ipratropium 3 ml 12/05/19 15:36 12/07/19 07:53 Duoneb 3 Ml Ampul NEB 01/04/20 15:35 3 ml [id number] PRN Administration SHORTNESS OF BREATH Atorvastatin Calcium 20 mg 11/29/19 22:00 12/06/19 23:18 Lipitor 20 Mg Tablet PO 12/29/19 21:59 20 mg QHS SHREYA Administration Bisacodyl 20 mg 12/04/19 18:42 12/06/19 11:04 Dulcolax 5 Mg Tablet PO 01/03/20 18:41 20 mg DAILYP PRN Administration CONSTIPATION Enoxaparin Sodium 40 mg 11/30/19 22:00 12/06/19 23:17 Lovenox Inj 40 Mg/0.4 Ml Disp.Syrin SUBCUT 12/29/19 21:59 40 mg QHS SHREYA Administration Fluticasone/Vilanterol 1 inh 11/29/19 22:00 12/06/19 10:55 Breo 200-25 Mcg Ellipta 14 Dose/Dpi IH 12/29/19 21:59 1 inhaler DAILY SHREYA Administration Furosemide 20 mg 12/06/19 10:00 12/06/19 10:58 Lasix Inj/Pf 20 Mg/2 Ml Sdv IV 01/05/20 09:59 20 mg DAILY SHREYA Administration Heparin Sodium (Porcine) 30 unit 12/05/19 22:00 12/06/19 23:19 Heparin Flush 10 Unit/Ml 5 Ml Disp.Syrg IV 01/04/20 21:59 30 unit Q12 SHREYA Administration Heparin Sodium (Porcine) 30 unit 12/05/19 14:00 Heparin Flush 10 Unit/Ml 5 Ml Disp.Syrg IV 01/04/20 13:59 .AFTER EACH USE PRN Ferric Carboxymaltose 750 mg/ 265 mls @ 1,060 mls/hr 11/29/19 22:00 12/06/19 23:15 Sodium Chloride IV 12/29/19 21:59 Infused Th@2200 SHREYA Infusion Meropenem 1 gm/ Sodium 50 mls @ 100 mls/hr 12/02/19 22:00 12/07/19 06:31 Chloride IV 12/09/19 21:59 Infused Q8 SHREYA Infusion Linezolid 600 mg in 300 mls @ 300 mls/hr 12/03/19 10:00 12/07/19 00:21 Zyvox Rtu 600 Mg/300 Ml Premixed IV 12/10/19 09:59 Infused Q12 SHREYA Infusion Levofloxacin 750 mg 12/05/19 10:00 12/05/19 10:15 Levaquin 750 Mg Tablet PO 12/12/19 09:59 750 mg Q2D@1000 SHREYA Administration Metoprolol Succinate 25 mg 12/06/19 10:00 12/06/19 10:58 Toprol Xl 25 Mg Tab.Sr PO 01/05/20 09:59 25 mg DAILY SHREYA Administration Morphine Sulfate 60 mg 12/04/19 10:00 12/06/19 23:18 Ms-Contin Sr 30 Mg Tablet PO 12/11/19 09:59 60 mg Q12 SHREYA Administration Ondansetron HCl 8 mg 11/30/19 16:16 12/01/19 19:20 Zofran 8 Mg Tablet PO 12/30/19 16:15 8 mg Q6HP PRN Administration NAUSEA Ondansetron HCl 4 mg 12/01/19 21:39 12/04/19 10:31 Zofran Inj/Pf 4 Mg/2 Ml Sdv IV 12/31/19 21:38 4 mg Q6HP PRN Administration NAUSEA Pantoprazole Sodium 20 mg 11/30/19 06:00 12/07/19 06:[address] Tablet PO 12/30/19 05:59 20 mg Q6AM SHREYA Administration Pharmacy Profile Note 1 each 11/30/19 18:00 12/06/19 17:21 Medication Communication Order 12/30/19 17:59 Not Given 1800 SHREYA Sacubitril/Valsartan 1 tab 12/06/19 11:00 12/06/19 23:24 Entresto 24 Mg/26 Mg Tablet PO 01/05/20 10:59 1 tab Q12 SHREYA Administration Sodium Chloride 10 ml 12/05/19 22:00 12/06/19 23:19 Nacl 0.9% Inj/Pf 10 Ml Sdv IV 01/04/20 21:59 10 ml Q12 SHREYA Administration Sodium Chloride 10 ml 12/05/19 14:00 Nacl 0.9% Inj/Pf 10 Ml Sdv IV 01/04/20 13:59 .AFTER EACH USE PRN Tamsulosin HCl 0.4 mg 11/29/19 22:00 12/06/19 17:41 Flomax 0.4 Mg Cap.Sr PO 12/29/19 21:59 0.4 mg QPM SHREYA Administration Umeclidinium [place] 1 inh 11/29/19 22:00 12/06/19 10:56 Incruse 62.5 Mcg Ellipta 7 Dose/Dpi IH 12/29/19 21:59 1 inhaler DAILY SHREYA Administration Discontinued Medications Generic Name Dose Route Start Last Admin Trade Name Freq PRN Reason Stop Dose Admin Acetaminophen Confirm 12/03/19 00:22 12/03/19 00:49 Tylenol 325 Mg Tablet Administered 12/03/19 00:23 325 mg Dose Administration 325 mg .ROUTE .STK-MED ONE Albuterol Confirm 12/02/19 02:54 12/02/19 03:03 Ventolin Hfa 8 Gm Mdi Administered 12/02/19 02:55 Not Given Dose 60 puff IH .STK-MED ONE Enoxaparin Sodium 40 mg 11/29/19 22:00 11/29/19 22:11 Lovenox Inj 40 Mg/0.4 Ml Disp.Syrin SUBCUT 12/29/19 21:59 40 mg DAILY SHREYA Administration Enoxaparin Sodium 40 mg 11/29/19 22:15 11/30/19 00:27 Lovenox Inj 40 Mg/0.4 Ml Disp.Syrin SUBCUT 11/29/19 22:16 Not Given NOW ONE Furosemide 40 mg 12/01/19 14:45 12/02/19 09:29 Lasix 40 Mg Tablet PO 12/31/19 14:44 40 mg DAILY SHREYA Administration Heparin Sodium (Porcine) Confirm 12/04/19 15:54 12/04/19 16:42 Heparin Flush 10 Unit/Ml 5 Ml Disp.Syrg Administered 12/04/19 15:55 Not Given Dose 50 unit IV .STK-MED ONE Furosemide 250 mg/ Sodium 250 mls @ 1 mls/hr 11/29/19 19:56 12/01/19 15:19 Chloride IV 12/29/19 19:55 Infused CONTINUOUS PRN Infusion THIS MED IS NOT "PRN" 1 MG/HR Sodium Chloride 1,000 mls @ 50 mls/hr 12/02/19 13:06 Nacl 0.9% 1000 Ml Iv Soln IV 01/01/20 13:05 CONTINUOUS PRN THIS MED IS NOT "PRN" Sodium Chloride 1,000 mls @ 50 mls/hr 12/02/19 16:14 Nacl 0.9% 1000 Ml Iv Soln IV 01/01/20 16:13 CONTINUOUS PRN THIS MED IS NOT "PRN" Sodium Chloride 250 mls @ 50 mls/hr 12/02/19 16:30 12/02/19 21:55 Nacl 0.9% 250 Ml Iv Soln IV 12/02/19 21:29 Infused BOLUS ONE Infusion Meropenem 1 gm/ Sodium 50 mls @ 100 mls/hr 12/02/19 18:00 Chloride IV 12/09/19 17:59 Q8 SHREYA Linezolid 600 mg in 300 mls @ 300 mls/hr 12/02/19 18:00 12/02/19 18:59 Zyvox Rtu 600 Mg/300 Ml Premixed IV 12/09/19 17:59 Not Given Q12A SHREYA Linezolid 600 mg in 300 mls @ 300 mls/hr 12/02/19 22:00 12/02/19 22:20 Zyvox Rtu 600 Mg/300 Ml Premixed IV 12/09/19 17:59 Infused Q12 SHREYA Infusion Sodium Chloride 500 mls @ 0 mls/hr 12/02/19 19:30 12/02/19 20:16 Nacl 0.9% 500 Ml Iv Soln IV 12/02/19 19:31 Infused BOLUS ONE Infusion Linezolid Confirm 12/02/19 19:25 12/02/19 19:53 Zyvox Rtu 600 Mg/300 Ml Premixed Administered 12/02/19 19:26 Not Given Dose 600 mg in 300 mls @ ud IV .STK-MED ONE Dopamine HCl/Dextrose 800 mg in 250 mls @ 0 mls/hr 12/02/19 23:54 12/03/19 00:27 Dopamine Rtu 800 Mg-D5w 250 Ml (Adult) Premix IV 01/01/20 23:53 4.9 mls/hr CONTINUOUS PRN 4.9 mls/hr THIS MED IS NOT "PRN" Administration Protocol Titrate Lactated Ringer's 1,000 mls @ 50 mls/hr 12/03/19 20:20 12/07/19 01:45 Lactated Ringers 1000 Ml Iv Soln IV 01/02/20 20:19 Infused CONTINUOUS PRN Infusion THIS MED IS NOT "PRN" Dopamine HCl/Dextrose 800 mg in 250 mls @ 0 mls/hr 12/03/19 21:55 Dopamine Rtu 800 Mg-D5w 250 Ml (Adult) Premix IV 01/02/20 21:54 CONTINUOUS PRN THIS MED IS NOT "PRN" Protocol Titrate Dopamine HCl/Dextrose 800 mg in 250 mls @ 0 mls/hr 12/03/19 22:26 12/05/19 09:45 Dopamine Rtu 800 Mg-D5w 250 Ml (Adult) Premix IV 01/02/20 22:25 0 mls/hr CONTINUOUS PRN 0 mls/hr THIS MED IS NOT "PRN" Titration Protocol Titrate Levofloxacin 750 mg 12/02/19 06:00 12/03/19 09:59 Levaquin 750 Mg Tablet PO 12/09/19 05:59 750 mg DAILY SHREYA Administration Meropenem 1 gm 12/02/19 18:08 Merrem 1 Gm Vial IV 12/03/19 07:00 ASDIR PRN Meropenem Confirm 12/02/19 19:24 12/02/19 19:52 Merrem 1 Gm Vial Administered 12/02/19 19:25 Not Given Dose 1 gm .ROUTE .STK-MED ONE Meropenem Confirm 12/02/19 19:31 12/02/19 19:53 Merrem 1 Gm Vial Administered 12/02/19 19:32 Not Given Dose 1 gm .ROUTE .STK-MED ONE Metoprolol Succinate 25 mg 11/29/19 22:00 11/29/19 22:10 Toprol Xl 25 Mg Tab.Sr PO 12/29/19 21:59 25 mg DAILY SHREYA Administration Metoprolol Succinate 25 mg 11/30/19 22:00 12/01/19 22:09 Toprol Xl 25 Mg Tab.Sr PO 12/30/19 21:59 25 mg QHS SHREYA Administration Metoprolol Succinate 25 mg 11/29/19 22:30 11/30/19 00:27 Toprol Xl 25 Mg Tab.Sr PO 11/29/19 22:31 Not Given NOW ONE Metoprolol Succinate 25 mg 12/05/19 16:20 Toprol Xl 25 Mg Tab.Sr PO 01/04/20 16:19 DAILYP PRN IF SBP > 100 Morphine Sulfate 60 mg 11/29/19 22:00 12/03/19 10:00 Ms-Contin Sr 30 Mg Tablet PO 12/06/19 21:59 Not Given Q12 SHREYA Morphine Sulfate 60 mg 12/03/19 17:30 12/03/19 17:08 Ms-Contin Sr 30 Mg Tablet PO 12/03/19 17:31 60 mg NOW ONE Administration Phentolamine Mesylate 5 mg 12/03/19 10:30 12/03/19 10:45 Regitine Inj 5 Mg Vial INFIL 12/03/19 10:31 5 mg NOW ONE Administration Sacubitril/Valsartan 1 tab 11/29/19 22:00 11/30/19 17:38 Entresto 24 Mg/26 Mg Tablet PO 12/29/19 21:59 1 tab BID SHREYA Administration Sacubitril/Valsartan 1 tab 12/01/19 10:00 12/02/19 09:30 Entresto 49 Mg/51 Mg Tablet PO 12/31/19 09:59 1 tab BID SHREYA Administration Assessment & Plan - Diagnosis (1) Anemia Qualifiers: Anemia type: iron deficiency Is this a current diagnosis for this admission?: Yes Plan: No evidence of active bleeding. He has been treated with iron infusion and his hemoglobin is stable. Recommendations: -GI evaluation. -Further treatment per hospitalist team. (2) CAD (coronary artery disease) Qualifiers: Coronary Disease-Associated Artery/Lesion type: [place] artery [place] vs. transplanted heart: [place] heart Associated angina: without angina Qualified Code(s): I25.10 - Atherosclerotic heart disease of [place] coronary artery witho ut angina pectoris Is this a current diagnosis for this admission?: Yes Plan: No evidence of cardiac ischemia at this point. Recommendations: -Continue with current medical management. -Given anemia should try to keep hemoglobin above 8 g/dL given coronary artery disease and CABG. -May be reasonable to hold off on antiplatelet therapy until anemia is fully evaluated. -Outpatient follow-up with [facility]. (3) CHF (congestive heart failure), NYHA class II Qualifiers: Congestive heart failure type: systolic Congestive heart failure chronicity: acute on chronic Qualified Code(s): I50.23 - Acute on chronic systolic (congestive) heart failure Is this a current diagnosis for this admission?: Yes Plan: He had been tolerating low-dose metoprolol as well as Entresto which was started at a lower dose given his episode of hypotension while in the hospital. His blood pressure is is now at goal. Unfortunately fluid restriction has not been enforced and he is currently +6.1 L since admission. His proBNP is elevated. Recommendations: -Increase Lasix to 40 mg IV daily. -Continue with Entresto at low-dose of 24 mg / 26 mg twice daily as tolerated by blood pressure. -Restrict fluid intake to 1500 cc daily. -Low sodium diet, less than 1500 mg daily. -Strict intake and output. -Daily weights. -Continue to correct anemia. -BMP daily, use pediatric tubes to avoid worsening anemia. -Avoid unnecessary fluids. (4) ANN (acute kidney injury) Is this a current diagnosis for this admission?: Yes Plan: Now resolved. We will continue to follow-up clinically and with labs. (5) Nosocomial pneumonia Is this a current diagnosis for this admission?: Yes
[2019-12-07] MEDS: MORPHINE SULFATE SR 30 MG TABLET PO SCH ×2 (10:35→21:32)
[2019-12-07] MEDS: METOPROLOL SUCCINATE 25 MG TAB.SR.24H PO SCH (10:35)
[2019-12-07] MEDS: SACUBITRIL/VALSARTAN 24 MG/26 MG TABLET PO SCH ×2 (10:36→21:32)
[2019-12-07] MEDS: FLUTICASONE/VILANTEROL 200-25 MCG/DOSE IH SCH (10:36)
[2019-12-07] MEDS: LEVOFLOXACIN 750 MG TABLET PO SCH (10:36)
[2019-12-07] MEDS: UMECLIDINIUM BROMIDE 62.5 MCG/DOSE IH SCH (10:38)
[2019-12-07] MEDS: NORMAL SALINE 10 ML SDV (SCHEDULED) IV SCH ×2 (10:39→21:34)
[2019-12-07] MEDS: LINEZOLID 600 MG/300 ML RTUPB IV SCH ×2 (10:39→21:31)
[2019-12-07] MEDS: FUROSEMIDE INJ/PF 40 MG/4 ML SDV IV SCH (10:45)
[2019-12-07] MEDS: FUROSEMIDE INJ/PF 20 MG/2 ML SDV IV SCH (10:48)
[2019-12-07 13:29] LABS: HEMATOCRIT 27.6 % (37.9-51.0); HEMOGLOBIN 8.9 g/dL (13.5-17.0); MEAN CORPUSCULAR HEMOGLOBIN 23.3 pg (27.0-33.4); MEAN CORPUSCULAR HGB CONC 32.4 g/dL (32.0-36.0); MEAN CORPUSCULAR VOLUME 72 fl (80-97); PLATELET COUNT 203 10^3/uL (150-450); RED BLOOD COUNT 3.83 10^6/uL (4.35-5.55); RED CELL DISTRIBUTION WIDTH 19.8 % (11.5-14.0); WHITE BLOOD COUNT 6.6 10^3/uL (4.0-10.5)
[2019-12-07 13:34] LABS: ALBUMIN 3.5 g/dL (3.5-5.0); ALKALINE PHOSPHATASE 58 U/L (38-126); ANION GAP 8 (5-19); ASPARTATE AMINO TRANSFERASE 48 U/L (17-59); BILIRUBIN,DIRECT 0.2 mg/dL (0.0-0.4); BILIRUBIN,TOTAL 0.6 mg/dL (0.2-1.3); BLOOD UREA NITROGEN 11 mg/dL (7-20); CALCIUM 8.7 mg/dL (8.4-10.2); CARBON DIOXIDE 29 mmol/L (22-30); CHLORIDE 94 mmol/L (98-107); GLUCOSE 108 mg/dL (75-110); TOTAL PROTEIN 6.6 g/dL (6.3-8.2)
[2019-12-07 14:01] LABS: ABSOLUTE LYMPHOCYTES# (MANUAL) 0.8 10^3/uL (0.5-4.7); ABSOLUTE MONOCYTES # (MANUAL) 0.4 10^3/uL (0.1-1.4); BASOPHILS % (MANUAL) 0 % (0-2); EOSINOPHILS % (MANUAL) 2 % (0-6); LYMPHOCYTES % (MANUAL) 12 % (13-45); MONOCYTES % (MANUAL) 6 % (3-13); SEGMENTED NEUTROPHILS % (MAN) 80 % (42-78); TOTAL CELLS COUNTED 100
[2019-12-07 14:03] LABS: BURR CELLS SLIGHT; HYPOCHROMASIA SLIGHT
[2019-12-07 14:04] LABS: PLATELET COMMENT ADEQUATE
[2019-12-07] MEDS: PHARMACY COMMUNICATION ORDER MC SCH (18:10)
[2019-12-07] MEDS: TAMSULOSIN HCL 0.4 MG CAP.SR.24H PO SCH (18:11)
--- NOTE | 2019-12-07 20:20 | PDOC PROGRESS REPORT ---
Subjective Progress Note for:: 12/07/19 Subjective:: Patient was admitted for the management of acute systolic heart failure, he developed nosocomial pneumonia on IV antibiotic, iron deficiency anemia, he received 2 doses of Injectafer. The pneumonia is improving on antibiotic, the initial plan was for discharge today but his CHF is worsening, he was seen by the painter plate Dr. Martin he recommended that patient should stay few more days for intravenous diuresis this was explained to patient, is in agreement w ith the plan I explained to him that I am off this weekend, my colleague Dr. Rasmussen is health companion. Reason For Visit: ACUTE SYSTOLIC HEART FAILURE, MICROCYTIC ANEMIA Physical Exam Vital Signs: Temp Pulse Resp BP Pulse Ox 97.9 F 87 16 104/69 99 12/07/19 15:40 12/07/19 15:40 12/07/19 15:40 12/07/19 15:40 12/07/19 15:40 Intake & Output 12/06/19 12/07/19 12/08/19 06:59 06:59 06:59 Intake Total 2576 3493 1820 Output Total 1175 2150 1550 Balance 1401 1343 270 Weight 62.9 kg 64.6 kg General appearance: PRESENT: no acute distress Eye exam: PRESENT: PERRLA Respiratory exam: PRESENT: rhonchi Cardiovascular exam: PRESENT: +S1, +S2 GI/Abdominal exam: PRESENT: soft Extremities exam: PRESENT: pedal edema Neurological exam: PRESENT: alert, CN II-XII grossly intact Results Laboratory Results: 12/07/19 13:00 12/07/19 13:00 12/07/19 12/07/19 13:00 13:00 WBC 6.6 RBC 3.83 L Hgb 8.9 L Hct 27.6 L MCV 72 L MCH 23.3 L MCHC 32.4 RDW 19.8 H Plt Count 203 Seg Neutrophils % Not Reportable Sodium 131.0 L Potassium 4.0 Chloride 94 L Carbon Dioxide 29 Anion Gap 8 BUN 11 Creatinine 0.63 Est GFR ( Amer) > 60 Glucose 108 Calcium 8.7 Total Bilirubin 0.6 AST 48 Alkaline Phosphatase 58 Total Protein 6.6 Albumin 3.5 12/02/19 13:35 Blood Blood Culture - Final NO GROWTH IN 5 DAYS 12/02/19 13:53 Blood Blood Culture - Final NO GROWTH IN 5 DAYS 11/29/19 11/29/19 11/29/19 18:14 21:16 21:16 Creatine Kinase 750 H CK-MB (CK-2) 13.70 H Troponin I < 0.012 NT-Pro-B Natriuret Pep 5020 H 11/30/19 11/30/19 11/30/19 05:13 05:13 13:02 Creatine Kinase 486 H 476 H CK-MB (CK-2) 8.94 H Troponin I 0.012 NT-Pro-B Natriuret Pep 11/30/19 12/06/19 13:02 11:20 Creatine Kinase CK-MB (CK-2) 11.50 H Troponin I < 0.012 NT-Pro-B Natriuret Pep 3080 H Impressions: Chest CT 11/30/19 00:00 IMPRESSION: STABLE CHRONIC EMPHYSEMATOUS CHANGES AND CHRONIC SCARRING IN THE RIGHT LUNG BASE. NO ACUTE FINDING ON NON-CONTRASTED CHEST CT. Chest/Abdomen CTA 12/02/19 00:00 IMPRESSION: No emboli visualized in the main pulmonary arteries or the segmental branches.New multifocal patchy -nodular airspace opacities throughout the left lower lobe with more dense consolidation in the inferior-posterior segments. Similar nodular opacities in the right lower lobe. No pleural effusion. Chest X-Ray 12/04/19 00:00 IMPRESSION: Improved aeration. PICC Line Insertion 12/04/19 13:49 IMPRESSION: SUCCESSFUL PLACEMENT OF A 5 FR DUAL LUMEN 47 CM PICC IN THE LEFT BASILIC VEIN. Assessment & Plan - Diagnosis (1) Acute systolic heart failure Is this a current diagnosis for this admission?: Yes Plan: Patient with worsening CHF, started on IV furosemide, already on ARNI, Entresto, beta-carlos manuel, metoprolol (2) Iron deficiency anemia Qualifiers: Iron deficiency anemia type: chronic blood loss Qualified Code(s): D50.0 - Iron deficiency anemia secondary to blood loss (chronic) Is this a current diagnosis for this admission?: Yes Plan: Patient received 2 doses of Injectafer, hemoglobin not low enough for blood transfusion, he will require outpatient endoscopy, he was scheduled for outpatient GI endoscopy, before he took ill (3) COPD (chronic obstructive pulmonary disease) Qualifiers: COPD type: unspecified COPD Qualified Code(s): J44.9 - Chronic obstructive pulmonary disease, unspecified Is this a current diagnosis for this admission?: Yes (4) CAD (coronary artery disease) Qualifiers: Coronary Disease-Associated Artery/Lesion type: [place] artery [place] vs. transplanted heart: [place] heart Associated angina: without angina Qualified Code(s): I25.10 - Atherosclerotic heart disease of [place] coronary artery without angina pectoris Is this a current diagnosis for this admission?: Yes Plan: Stable (5) Nosocomial pneumonia Is this a current diagnosis for this admission?: Yes Plan: Continue IV antibiotic (6) Hypotension Qualifiers: Hypotension type: idiopathic hypotension Qualified Code(s): I95.0 - Idiopathic hypotension Is this a current diagnosis for this admission?: Yes Plan: Resolved (7) ANN (acute kidney injury) Is this a current diagnosis for this admission?: Yes Plan: Resolved (8) Chronic pain syndrome Is this a current diagnosis for this admission?: Yes - Time Time Spent with patient: 35 or more minutes Level of Care: IMCU Medications reviewed and adjusted accordingly: Yes
[2019-12-07] MEDS: ATORVASTATIN CALCIUM 20 MG TABLET PO SCH (21:32)
[2019-12-07] MEDS: ENOXAPARIN SODIUM INJ 40 MG/0.4 ML DISP.SYRIN SUBCUT SCH (21:33)
[2019-12-08] MEDS: ACETAMINOPHEN 325 MG TABLET PO PRN
[2019-12-08] MEDS: PANTOPRAZOLE SODIUM 20 MG TABLET.DR PO SCH (05:20)
[2019-12-08] MEDS: MEROPENEM 1 GM in NORMAL SALINE 50 ML IV SCH ×3 (05:20→21:59)
[2019-12-08 06:29] LABS: ALBUMIN 2.8 g/dL (3.5-5.0); ALKALINE PHOSPHATASE 51 U/L (38-126); ANION GAP 10 (5-19); ASPARTATE AMINO TRANSFERASE 40 U/L (17-59); BILIRUBIN,TOTAL 0.5 mg/dL (0.2-1.3); BLOOD UREA NITROGEN 12 mg/dL (7-20); CALCIUM 7.3 mg/dL (8.4-10.2); CARBON DIOXIDE 27 mmol/L (22-30); CHLORIDE 98 mmol/L (98-107); GLUCOSE 99 mg/dL (75-110); POTASSIUM 3.7 mmol/L (3.6-5.0); TOTAL PROTEIN 6.1 g/dL (6.3-8.2)
--- NOTE | 2019-12-08 07:15 | PDOC PROGRESS REPORT ---
Subjective Progress Note for:: 12/08/19 Subjective:: 11/29/19 16:50 BUTCH BAILEY MD The patient is a 69-year-old male with history of COPD, history of Present Illness: JOSE L FAROOQ is a 69 year old male with history of COPD, coronary artery disease status post CABG and multiple coronary interventions, heart failure with reduced ejection fraction, peripheral vascular disease status post aortoiliac bypass graft, smoker in remission who was admitted on 11/29/2019 with decompensated heart failure. He had been followed by my partner, Dr. Ivey. A review of Dr. Ivey's notes as well as the hospitalist service reveals that he was found to be anemic and his heart failure had been attributed to his anemia. He received iron infusion with improvement in his symptoms. He was also found to have nosocomial pneumonia and is currently treated for it. He is followed by [facility]. He feels well this morning and specifically denies chest pain, shortness of breath, lower extremity edema, palpitations, syncope and presyncope. He is telemetry shows normal sinus rhythm with PACs and PVCs. His most recent chemistry is remarkable for hyponatremia with a sodium of 129, normal potassium and normal renal function. His fluid balance since admission is +4.6 L. 12/08/2019: The patient had an uneventful night. He is found sitting up in bed eating breakfast. He continues to feel good and specifically denies chest pain, shortness of breath, lower extremity edema, palpitations, syncope and presyncope. His telemetry shows normal sinus rhythm with PVCs and episodes of ventricular bigeminy. His fluid restriction has not been enforced and his fluid balance continues to be positive. His hyponatremia is improving. Physical exam on 12/08/2019: GENERAL: Pleasant and conversational. Oriented x3 with normal mood. Looks chronically ill. Pale. Not in acute distress. Well groomed and well developed. HEENT: Normocephalic, atraumatic. Pupils equal. Sclerae anicteric. Oropharynx moist. NECK: No JVD. No carotid bruits. LUNGS: Clear to auscultation bilaterally. Normal respiratory effort without the use of accessory muscles or intercostal retractions. CARDIOVASCULAR: Regular rate and rhythm, normal S1 and S2 without murmurs, rubs, or gallops. PMI not displaced. EXTREMITIES: No edema, no cyanosis, no clubbing. +2 pulses femoral and pedal pulses bilaterally. SKIN: No lesions or rashes. MUSCULOSKELETAL: No chest tenderness to palpation. NEUROLOGIC: Nonfocal. No gross sensory or motor deficits bilateral upper or lower extremities. Cardiac studies: Echocardiogram on 11/29/2019: -LV systolic function is mildly reduced. -EF 40 to 45%. -Mild to moderate RVE. -Mild to moderate MR, trace AI, mild TR. -Mild pulmonary hypertension. Reason For Visit: ACUTE SYSTOLIC HEART FAILURE, MICROCYTIC ANEMIA Physical Exam Vital Signs: Temp Pulse Resp BP Pulse Ox 97.7 F 84 14 111/71 96 12/08/19 04:28 12/08/19 04:28 12/08/19 04:28 12/08/19 04:28 12/08/19 04:28 Intake & Output 12/06/19 12/07/19 12/08/19 06:59 06:59 06:59 Intake Total 2576 3493 2560 Output Total 1175 2150 1850 Balance 1401 1343 710 Weight 62.9 kg 64.6 kg Results Laboratory Results: 12/07/19 13:00 12/07/19 12/07/19 13:00 13:00 WBC 6.6 RBC 3.83 L Hgb 8.9 L Hct 27.6 L MCV 72 L MCH 23.3 L MCHC 32.4 RDW 19.8 H Plt Count 203 Seg Neutrophils % Not Reportable Sodium 131.0 L Potassium 4.0 Chloride 94 L Carbon Dioxide 29 Anion Gap 8 BUN 11 Creatinine 0.63 Est GFR ( Amer) > 60 Glucose 108 Calcium 8.7 Total Bilirubin 0.6 AST 48 Alkaline Phosphatase 58 Total Protein 6.6 Albumin 3.5 12/02/19 13:35 Blood Blood Culture - Final NO GROWTH IN 5 DAYS 12/02/19 13:53 Blood Blood Culture - Final NO GROWTH IN 5 DAYS 11/29/19 11/29/19 11/29/19 18:14 21:16 21:16 Creatine Kinase 750 H CK-MB (CK-2) 13.70 H Troponin I < 0.012 NT-Pro-B Natriuret Pep 5020 H 11/30/19 11/30/19 11/30/19 05:13 05:13 13:02 Creatine Kinase 486 H 476 H CK-MB (CK-2) 8.94 H Troponin I 0.012 NT-Pro-B Natriuret Pep 11/30/19 12/06/19 13:02 11:20 Creatine Kinase CK-MB (CK-2) 11.50 H Troponin I < 0.012 NT-Pro-B Natriuret Pep 3080 H Impressions: Chest CT 11/30/19 00:00 IMPRESSION: STABLE CHRONIC EMPHYSEMATOUS CHANGES AND CHRONIC SCARRING IN THE RIGHT LUNG BASE. NO ACUTE FINDING ON NON-CONTRASTED CHEST CT. Chest/Abdomen CTA 12/02/19 00:00 IMPRESSION: No emboli visualized in the main pulmonary arteries or the segmental branches.New multifocal patchy -nodular airspace opacities throughout the left lower lobe with more dense consolidation in the inferior-posterior segments. Similar nodular opacities in the right lower lobe. No pleural effusion. Chest X-Ray 12/04/19 00:00 IMPRESSION: Improved aeration. PICC Line Insertion 12/04/19 13:49 IMPRESSION: SUCCESSFUL PLACEMENT OF A 5 FR DUAL LUMEN 47 CM PICC IN THE LEFT BASILIC VEIN. 12/07/19 13:00 MCV 72 fl (80-97) L 12/07/19 13:00 MCH 23.3 pg (27.0-33.4) L 12/07/19 13:00 MCHC 32.4 g/dL (32.0-36.0) 12/07/19 13:00 RDW 19.8 % (11.5-14.0) H 12/07/19 13:00 Seg Neutrophils % Not Reportable 12/07/19 13:00 Chloride 94 mmol/L (98-107) L 12/07/19 13:00 Carbon Dioxide 29 mmol/L (22-30) 12/07/19 13:00 Anion Gap 8 (5-19) 12/07/19 13:00 Est GFR ( Amer) > 60 (>60) 12/07/19 13:00 Glucose 108 mg/dL (75-110) 12/07/19 13:00 Calcium 8.7 mg/dL (8.4-10.2) 12/07/19 13:00 Magnesium 2.2 mg/dL (1.6-2.3) 11/30/19 05:13 Iron 25.6 ug/dL (49-181) L 11/29/19 18:14 TIBC 514 ug/dL (250-450) H 11/29/19 18:14 % Saturation 5 % 11/29/19 18:14 Ferritin 8.11 ng/mL (17.9-464.0) L 11/29/19 18:14 Total Bilirubin 0.6 mg/dL (0.2-1.3) 12/07/19 13:00 AST 48 U/L (17-59) 12/07/19 13:00 Alkaline Phosphatase 58 U/L (38-126) 12/07/19 13:00 Total Protein 6.6 g/dL (6.3-8.2) 12/07/19 13:00 Albumin 3.5 g/dL (3.5-5.0) 12/07/19 13:00 TSH 0.36 uIU/mL (0.47-4.68) L 11/29/19 18:14 TSH Cancelled 11/29/19 18:14 Free T4 1.63 ng/dL (0.78-2.19) 11/29/19 18:14 Free T3 pg/mL 3.76 pg/mL (2.77-5.27) 11/29/19 18:14 Urine Color YELLOW 12/03/19 12:28 Urine Appearance CLEAR 12/03/19 12:28 Urine pH 5.0 (5.0-9.0) 12/03/19 12:28 Ur Specific [place] 1.023 12/03/19 12:28 Urine Protein NEGATIVE mg/dL (NEGATIVE) 12/03/19 12:28 Urine Glucose (UA) NEGATIVE mg/dL (NEGATIVE) 12/03/19 12:28 Urine Ketones NEGATIVE mg/dL (NEGATIVE) 12/03/19 12:28 Urine Blood NEGATIVE (NEGATIVE) 12/03/19 12:28 Urine Nitrite NEGATIVE (NEGATIVE) 12/03/19 12:28 Ur Leukocyte Esterase NEGATIVE (NEGATIVE) 12/03/19 12:28 Urine WBC (Auto) 0 /HPF 12/03/19 12:28 Urine RBC (Auto) 1 /HPF 12/03/19 12:28 12/02/19 13:35 Blood Blood Culture - Final NO GROWTH IN 5 DAYS 12/02/19 13:53 Blood Blood Culture - Final NO GROWTH IN 5 DAYS 11/29/19 11/29/19 11/29/19 18:14 21:16 21:16 Creatine Kinase 750 H CK-MB (CK-2) 13.70 H Troponin I < 0.012 NT-Pro-B Natriuret Pep 5020 H 11/30/19 11/30/19 11/30/19 05:13 05:13 13:02 Creatine Kinase 486 H 476 H CK-MB (CK-2) 8.94 H Troponin I 0.012 NT-Pro-B Natriuret Pep 11/30/19 12/06/19 13:02 11:20 Creatine Kinase CK-MB (CK-2) 11.50 H Troponin I < 0.012 NT-Pro-B Natriuret Pep 3080 H Current Medication List Generic Name Dose Route Start Last Admin Trade Name Freq PRN Reason Stop Dose Admin Acetaminophen 650 mg 12/03/19 00:42 12/08/19 00:00 Tylenol 325 Mg Tablet PO 01/02/20 00:41 650 mg Q4HP PRN Administration PAIN Albuterol 2 puff 11/29/19 21:18 Ventolin Hfa 8 Gm Mdi IH 12/29/19 21:17 Q4HP PRN SHORTNESS OF BREATH Albuterol/Ipratropium 3 ml 12/05/19 15:36 12/07/19 20:12 Duoneb 3 Ml Ampul NEB 01/04/20 15:35 3 ml [id number] PRN Administration SHORTNESS OF BREATH Atorvastatin Calcium 20 mg 11/29/19 22:00 12/07/19 21:32 Lipitor 20 Mg Tablet PO 12/29/19 21:59 20 mg QHS SHREYA Administration Bisacodyl 20 mg 12/04/19 18:42 12/06/19 11:04 Dulcolax 5 Mg Tablet PO 01/03/20 18:41 20 mg DAILYP PRN Administration CONSTIPATION Enoxaparin Sodium 40 mg 11/30/19 22:00 12/07/19 21:33 Lovenox Inj 40 Mg/0.4 Ml Disp.Syrin SUBCUT 12/29/19 21:59 40 mg QHS SHREYA Administration Fluticasone/Vilanterol 1 inh 11/29/19 22:00 12/07/19 10:36 Breo 200-25 Mcg Ellipta 14 Dose/Dpi IH 12/29/19 21:59 1 inhaler DAILY SHREYA Administration Furosemide 40 mg 12/07/19 10:15 12/07/19 10:45 Lasix Inj/Pf 40 Mg/4 Ml Sdv IV 01/06/20 10:14 40 mg DAILY SHREYA Administration Heparin Sodium (Porcine) 30 unit 12/05/19 22:00 12/07/19 21:32 Heparin Flush 10 Unit/Ml 5 Ml Disp.Syrg IV 01/04/20 21:59 30 unit Q12 SHREYA Administration Heparin Sodium (Porcine) 30 unit 12/05/19 14:00 Heparin Flush 10 Unit/Ml 5 Ml Disp.Syrg IV 01/04/20 13:59 .AFTER EACH USE PRN Ferric Carboxymaltose 750 mg/ 265 mls @ 1,060 mls/hr 11/29/19 22:00 12/06/19 23:15 Sodium Chloride IV 12/29/19 21:59 Infused Th@2200 SHREYA Infusion Meropenem 1 gm/ Sodium 50 mls @ 100 mls/hr 12/02/19 22:00 12/08/19 06:04 Chloride IV 12/09/19 21:59 Infused Q8 SHREYA Infusion Linezolid 600 mg in 300 mls @ 300 mls/hr 12/03/19 10:00 12/07/19 23:50 Zyvox Rtu 600 Mg/300 Ml Premixed IV 12/10/19 09:59 Infused Q12 SHREYA Infusion Levofloxacin 750 mg 12/05/19 10:00 12/07/19 10:36 Levaquin 750 Mg Tablet PO 12/12/19 09:59 750 mg Q2D@1000 SHREYA Administration Metoprolol Succinate 25 mg 12/06/19 10:00 12/07/19 10:35 Toprol Xl 25 Mg Tab.Sr PO 01/05/20 09:59 25 mg DAILY SHREYA Administration Morphine Sulfate 60 mg 12/04/19 10:00 12/07/19 21:32 Ms-Contin Sr 30 Mg Tablet PO 12/11/19 09:59 60 mg Q12 SHREYA Administration Ondansetron HCl 8 mg 11/30/19 16:16 12/01/19 19:20 Zofran 8 Mg Tablet PO 12/30/19 16:15 8 mg Q6HP PRN Administration NAUSEA Ondansetron HCl 4 mg 12/01/19 21:39 12/04/19 10:31 Zofran Inj/Pf 4 Mg/2 Ml Sdv IV 12/31/19 21:38 4 mg Q6HP PRN Administration NAUSEA Pantoprazole Sodium 20 mg 11/30/19 06:00 12/08/19 05:[address] Tablet PO 12/30/19 05:59 20 mg Q6AM SHREYA Administration Pharmacy Profile Note 1 each 11/30/19 18:00 12/07/19 18:10 Medication Communication Order 12/30/19 17:59 Not Given 1800 SHREYA Sacubitril/Valsartan 1 tab 12/06/19 11:00 12/07/19 21:32 Entresto 24 Mg/26 Mg Tablet PO 01/05/20 10:59 1 tab Q12 SHREYA Administration Sodium Chloride 10 ml 12/05/19 22:00 12/07/19 21:34 Nacl 0.9% Inj/Pf 10 Ml Sdv IV 01/04/20 21:59 10 ml Q12 SHREYA Administration Sodium Chloride 10 ml 12/05/19 14:00 Nacl 0.9% Inj/Pf 10 Ml Sdv IV 01/04/20 13:59 .AFTER EACH USE PRN Tamsulosin HCl 0.4 mg 11/29/19 22:00 12/07/19 18:11 Flomax 0.4 Mg Cap.Sr PO 12/29/19 21:59 0.4 mg QPM SHREYA Administration Umeclidinium [place] 1 inh 11/29/19 22:00 12/07/19 10:38 Incruse 62.5 Mcg Ellipta 7 Dose/Dpi IH 12/29/19 21:59 1 inhaler DAILY SHREYA Administration Discontinued Medications Generic Name Dose Route Start Last Admin Trade Name Freq PRN Reason Stop Dose Admin Acetaminophen Confirm 12/03/19 00:22 12/03/19 00:49 Tylenol 325 Mg Tablet Administered 12/03/19 00:23 325 mg Dose Administration 325 mg .ROUTE .STK-MED ONE Albuterol Confirm 12/02/19 02:54 12/02/19 03:03 Ventolin Hfa 8 Gm Mdi Administered 12/02/19 02:55 Not Given Dose 60 puff IH .STK-MED ONE Enoxaparin Sodium 40 mg 11/29/19 22:00 11/29/19 22:11 Lovenox Inj 40 Mg/0.4 Ml Disp.Syrin SUBCUT 12/29/19 21:59 40 mg DAILY SHREYA Administration Enoxaparin Sodium 40 mg 11/29/19 22:15 11/30/19 00:27 Lovenox Inj 40 Mg/0.4 Ml Disp.Syrin SUBCUT 11/29/19 22:16 Not Given NOW ONE Furosemide 40 mg 12/01/19 14:45 12/02/19 09:29 Lasix 40 Mg Tablet PO 12/31/19 14:44 40 mg DAILY SHREYA Administration Furosemide 20 mg 12/06/19 10:00 12/07/19 10:48 Lasix Inj/Pf 20 Mg/2 Ml Sdv IV 01/05/20 09:59 Not Given DAILY SHREYA Heparin Sodium (Porcine) Confirm 12/04/19 15:54 12/04/19 16:42 Heparin Flush 10 Unit/Ml 5 Ml Disp.Syrg Administered 12/04/19 15:55 Not Given Dose 50 unit IV .STK-MED ONE Furosemide 250 mg/ Sodium 250 mls @ 1 mls/hr 11/29/19 19:56 12/01/19 15:19 Chloride IV 12/29/19 19:55 Infused CONTINUOUS PRN Infusion THIS MED IS NOT "PRN" 1 MG/HR Sodium Chloride 1,000 mls @ 50 mls/hr 12/02/19 13:06 Nacl 0.9% 1000 Ml Iv Soln IV 01/01/20 13:05 CONTINUOUS PRN THIS MED IS NOT "PRN" Sodium Chloride 1,000 mls @ 50 mls/hr 12/02/19 16:14 Nacl 0.9% 1000 Ml Iv Soln IV 01/01/20 16:13 CONTINUOUS PRN THIS MED IS NOT "PRN" Sodium Chloride 250 mls @ 50 mls/hr 12/02/19 16:30 12/02/19 21:55 Nacl 0.9% 250 Ml Iv Soln IV 12/02/19 21:29 Infused BOLUS ONE Infusion Meropenem 1 gm/ Sodium 50 mls @ 100 mls/hr 12/02/19 18:00 Chloride IV 12/09/19 17:59 Q8 SHREYA Linezolid 600 mg in 300 mls @ 300 mls/hr 12/02/19 18:00 12/02/19 18:59 Zyvox Rtu 600 Mg/300 Ml Premixed IV 12/09/19 17:59 Not Given Q12A SHREYA Linezolid 600 mg in 300 mls @ 300 mls/hr 12/02/19 22:00 12/02/19 22:20 Zyvox Rtu 600 Mg/300 Ml Premixed IV 12/09/19 17:59 Infused Q12 SHREYA Infusion Sodium Chloride 500 mls @ 0 mls/hr 12/02/19 19:30 12/02/19 20:16 Nacl 0.9% 500 Ml Iv Soln IV 12/02/19 19:31 Infused BOLUS ONE Infusion Linezolid Confirm 12/02/19 19:25 12/02/19 19:53 Zyvox Rtu 600 Mg/300 Ml Premixed Administered 12/02/19 19:26 Not Given Dose 600 mg in 300 mls @ ud IV .STK-MED ONE Dopamine HCl/Dextrose 800 mg in 250 mls @ 0 mls/hr 12/02/19 23:54 12/03/19 00:27 Dopamine Rtu 800 Mg-D5w 250 Ml (Adult) Premix IV 01/01/20 23:53 4.9 mls/hr CONTINUOUS PRN 4.9 mls/hr THIS MED IS NOT "PRN" Administration Protocol Titrate Lactated Ringer's 1,000 mls @ 50 mls/hr 12/03/19 20:20 12/07/19 01:45 Lactated Ringers 1000 Ml Iv Soln IV 01/02/20 20:19 Infused CONTINUOUS PRN Infusion THIS MED IS NOT "PRN" Dopamine HCl/Dextrose 800 mg in 250 mls @ 0 mls/hr 12/03/19 21:55 Dopamine Rtu 800 Mg-D5w 250 Ml (Adult) Premix IV 01/02/20 21:54 CONTINUOUS PRN THIS MED IS NOT "PRN" Protocol Titrate Dopamine HCl/Dextrose 800 mg in 250 mls @ 0 mls/hr 12/03/19 22:26 12/05/19 09:45 Dopamine Rtu 800 Mg-D5w 250 Ml (Adult) Premix IV 01/02/20 22:25 0 mls/hr CONTINUOUS PRN 0 mls/hr THIS MED IS NOT "PRN" Titration Protocol Titrate Levofloxacin 750 mg 12/02/19 06:00 12/03/19 09:59 Levaquin 750 Mg Tablet PO 12/09/19 05:59 750 mg DAILY SHREYA Administration Meropenem 1 gm 12/02/19 18:08 Merrem 1 Gm Vial IV 12/03/19 07:00 ASDIR PRN Meropenem Confirm 12/02/19 19:24 12/02/19 19:52 Merrem 1 Gm Vial Administered 12/02/19 19:25 Not Given Dose 1 gm .ROUTE .STK-MED ONE Meropenem Confirm 12/02/19 19:31 12/02/19 19:53 Merrem 1 Gm Vial Administered 12/02/19 19:32 Not Given Dose 1 gm .ROUTE .STK-MED ONE Metoprolol Succinate 25 mg 11/29/19 22:00 11/29/19 22:10 Toprol Xl 25 Mg Tab.Sr PO 12/29/19 21:59 25 mg DAILY SHREYA Administration Metoprolol Succinate 25 mg 11/30/19 22:00 12/01/19 22:09 Toprol Xl 25 Mg Tab.Sr PO 12/30/19 21:59 25 mg QHS SHREYA Administration Metoprolol Succinate 25 mg 11/29/19 22:30 11/30/19 00:27 Toprol Xl 25 Mg Tab.Sr PO 11/29/19 22:31 Not Given NOW ONE Metoprolol Succinate 25 mg 12/05/19 16:20 Toprol Xl 25 Mg Tab.Sr PO 01/04/20 16:19 DAILYP PRN IF SBP > 100 Morphine Sulfate 60 mg 11/29/19 22:00 12/03/19 10:00 Ms-Contin Sr 30 Mg Tablet PO 12/06/19 21:59 Not Given Q12 SHREYA Morphine Sulfate 60 mg 12/03/19 17:30 12/03/19 17:08 Ms-Contin Sr 30 Mg Tablet PO 12/03/19 17:31 60 mg NOW ONE Administration Phentolamine Mesylate 5 mg 12/03/19 10:30 12/03/19 10:45 Regitine Inj 5 Mg Vial INFIL 12/03/19 10:31 5 mg NOW ONE Administration Sacubitril/Valsartan 1 tab 11/29/19 22:00 11/30/19 17:38 Entresto 24 Mg/26 Mg Tablet PO 12/29/19 21:59 1 tab BID SHREYA Administration Sacubitril/Valsartan 1 tab 12/01/19 10:00 12/02/19 09:30 Entresto 49 Mg/51 Mg Tablet PO 12/31/19 09:59 1 tab BID SHREYA Administration Assessment & Plan - Diagnosis (1) Anemia Qualifiers: Anemia type: iron deficiency Is this a current diagnosis for this admission?: Yes Plan: No evidence of active bleeding. He has been treated with iron infusion and his hemoglobin is stable. Recommendations: -GI evaluation. -Further treatment per hospitalist team. (2) CAD (coronary artery disease) Qualifiers: Coronary Disease-Associated Artery/Lesion type: [place] artery [place] vs. transplanted heart: [place] heart Associated angina: without angina Qualified Code(s): I25.10 - Atherosclerotic heart disease of [place] coronary artery without angina pectoris Is this a current diagnosis for this admission?: Yes Plan: No evidence of cardiac ischemia at this point. Recommendations: -Continue with current medical management. -Given anemia should try to keep hemoglobin above 8 g/dL given coronary artery disease and CABG. -May be reasonable to hold off on antiplatelet therapy until anemia is fully evaluated. -Outpatient follow-up with [facility]. (3) CHF (congestive heart failure), NYHA class II Qualifiers: Congestive heart failure type: systolic Congestive heart failure chronicity: acute on chronic Qualified Code(s): I50.23 - Acute on chronic systolic (congestive) heart failure Is this a current diagnosis for this admission?: Yes Plan: He had been tolerating low-dose metoprolol as well as Entresto which was started at a lower dose given his episode of hypotension while in the hospital. His blood pressure is is now at goal. Unfortunately he continues to have a positive fluid balance secondary to the IV antibiotics and the dobutamine infusion he required early during this hospitalization. The patient, however, continues to be asymptomatic and without clinical evidence of decompensated heart failure. The hospitalist is planning to discharge him today. His proBNP is elevated. If the patient is to be discharged from a medical standpoint I recommend Lasix p.o. 40 mg twice daily along with potassium chloride 20 mEq daily and follow-up with his outpatient repair technician within 1 week of discharge. The patient was instructed to call his repair technician immediately upon discharge to arrange for follow-up. He will continue with current doses of Entresto which is to be uptitrated by his outpatient repair technician as he deems necessary. (4) ANN (acute kidney injury) Is this a current diagnosis for this admission?: Yes Plan: Now resolved. We will continue to follow-up clinically and with labs. (5) Nosocomial pneumonia Is this a current diagnosis for this admission?: Yes Plan: Receiving antibiotics with clinical improvement. Further management per primary team.
[2019-12-08] MEDS: LINEZOLID 600 MG/300 ML RTUPB IV SCH ×2 (10:01→22:00)
[2019-12-08] MEDS: MORPHINE SULFATE SR 30 MG TABLET PO SCH ×2 (10:01→22:00)
[2019-12-08] MEDS: METOPROLOL SUCCINATE 25 MG TAB.SR.24H PO SCH (10:01)
[2019-12-08] MEDS: NORMAL SALINE 10 ML SDV (SCHEDULED) IV SCH ×2 (10:01→22:03)
[2019-12-08] MEDS: SACUBITRIL/VALSARTAN 24 MG/26 MG TABLET PO SCH ×2 (10:02→22:02)
[2019-12-08] MEDS: FUROSEMIDE INJ/PF 40 MG/4 ML SDV IV SCH (10:02)
[2019-12-08] MEDS: FLUTICASONE/VILANTEROL 200-25 MCG/DOSE IH SCH (10:02)
--- NOTE | 2019-12-08 11:01 | PDOC PROGRESS REPORT ---
Subjective Progress Note for:: 12/08/19 Subjective:: Patient is currently doing well Patient's denied any chest pain or short of breath Patient is still on antibiotic because of the pneumonia Patient's heart failure is currently stable dr aguila suggest the p.o. Lasix twice a day Reason For Visit: ACUTE SYSTOLIC HEART FAILURE, MICROCYTIC ANEMIA Physical Exam Vital Signs: Temp Pulse Resp BP Pulse Ox 97.5 F 69 16 110/61 98 12/08/19 08:51 12/08/19 08:51 12/08/19 08:51 12/08/19 08:51 12/08/19 08:51 Intake & Output 12/07/19 12/08/19 12/09/19 06:59 06:59 06:59 Intake Total 3493 2760 Output Total 2150 2150 Balance 1343 610 Weight 64.6 kg 65.7 kg General appearance: PRESENT: no acute distress, well-developed, well-nourished Head exam: PRESENT: atraumatic, normocephalic Eye exam: PRESENT: conjunctiva pink, EOMI, PERRLA. ABSENT: scleral icterus Ear exam: PRESENT: normal external ear exam Mouth exam: PRESENT: moist, tongue midline Neck exam: PRESENT: full ROM. ABSENT: carotid bruit, JVD, lymphadenopathy, thyromegaly Respiratory exam: PRESENT: clear to auscultation josselyn Cardiovascular exam: PRESENT: RRR. ABSENT: diastolic murmur, rubs, systolic murmur Pulses: PRESENT: normal dorsalis pedis pul, +2 pedal pulses bilateral Vascular exam: PRESENT: normal capillary refill GI/Abdominal exam: PRESENT: normal bowel sounds, soft. ABSENT: distended, guarding, mass, organolmegaly, rebound, tenderness Rectal exam: PRESENT: deferred Neurological exam: PRESENT: alert, awake, oriented to person, oriented to place, oriented to time, oriented to situation, CN II-XII grossly intact. ABSENT: motor sensory deficit Psychiatric exam: PRESENT: appropriate affect, normal mood. ABSENT: homicidal ideation, suicidal ideation Skin exam: PRESENT: dry, intact, warm. ABSENT: cyanosis, rash Results Laboratory Results: 12/07/19 13:00 12/08/19 05:50 12/07/19 12/07/19 12/08/19 13:00 13:00 05:50 WBC 6.6 RBC 3.83 L Hgb 8.9 L Hct 27.6 L MCV 72 L MCH 23.3 L MCHC 32.4 RDW 19.8 H Plt Count 203 Seg Neutrophils % Not Reportable Sodium 131.0 L 134.5 L Potassium 4.0 3.7 Chloride 94 L 98 Carbon Dioxide 29 27 Anion Gap 8 10 BUN 11 12 Creatinine 0.63 0.55 Est GFR ( Amer) > 60 > 60 Glucose 108 99 Calcium 8.7 7.3 L Total Bilirubin 0.6 0.5 AST 48 40 Alkaline Phosphatase 58 51 Total Protein 6.6 6.1 L Albumin 3.5 2.8 L 12/02/19 13:35 Blood Blood Culture - Final NO GROWTH IN 5 DAYS 12/02/19 13:53 Blood Blood Culture - Final NO GROWTH IN 5 DAYS 11/29/19 11/29/19 11/29/19 18:14 21:16 21:16 Creatine Kinase 750 H CK-MB (CK-2) 13.70 H Troponin I < 0.012 NT-Pro-B Natriuret Pep 5020 H 11/30/19 11/30/19 11/30/19 05:13 05:13 13:02 Creatine Kinase 486 H 476 H CK-MB (CK-2) 8.94 H Troponin I 0.012 NT-Pro-B Natriuret Pep 11/30/19 12/06/19 12/08/19 13:02 11:20 05:50 Creatine Kinase CK-MB (CK-2) 11.50 H Troponin I < 0.012 NT-Pro-B Natriuret Pep 3080 H 3400 H Impressions: Chest CT 11/30/19 00:00 IMPRESSION: STABLE CHRONIC EMPHYSEMATOUS CHANGES AND CHRONIC SCARRING IN THE RIGHT LUNG BASE. NO ACUTE FINDING ON NON-CONTRASTED CHEST CT. Chest/Abdomen CTA 12/02/19 00:00 IMPRESSION: No emboli visualized in the main pulmonary arteries or the segmental branches.New multifocal patchy -nodular airspace opacities throughout the left lower lobe with more dense consolidation in the inferior-posterior segments. Similar nodular opacities in the right lower lobe. No pleural effusion. Chest X-Ray 12/04/19 00:00 IMPRESSION: Improved aeration. PICC Line Insertion 12/04/19 13:49 IMPRESSION: SUCCESSFUL PLACEMENT OF A 5 FR DUAL LUMEN 47 CM PICC IN THE LEFT BASILIC VEIN. Assessment & Plan - Diagnosis (1) Acute systolic heart failure Is this a current diagnosis for this admission?: Yes Plan: We will switch IV Lasix to the p.o. Lasix as per cardiology suggest before the discharge (2) CAD (coronary artery disease) Qualifiers: Coronary Disease-Associated Artery/Lesion type: [place] artery [place] vs. transplanted heart: [place] heart Associated angina: without angina Qualified Code(s): I25.10 - Atherosclerotic heart disease of [place] coronary artery without angina pectoris Is this a current diagnosis for this admission?: Yes (3) COPD (chronic obstructive pulmonary disease) Qualifiers: COPD type: unspecified COPD Qualified Code(s): J44.9 - Chronic obstructive pulmonary disease, unspecified Is this a current diagnosis for this admission?: Yes (4) Chronic pain syndrome Is this a current diagnosis for this admission?: Yes (5) Iron deficiency anemia Qualifiers: Iron deficiency anemia type: chronic blood loss Qualified Code(s): D50.0 - Iron deficiency anemia secondary to blood loss (chronic) Is this a current diagnosis for this admission?: Yes (6) Nosocomial pneumonia Is this a current diagnosis for this admission?: Yes - Time Time Spent with patient: 25-34 minutes Level of Care: IMCU Medications reviewed and adjusted accordingly: Yes Anticipated discharge: Other Within: Other - Plan Summary Plan Summary: We will switch IV Lasix to the p.o. Lasix We will repeat the chest x-ray Will wait for next 24-hour before the discharge the patient Wants to go home but I think the patient's recent CHF is worsening ongoing pneumonia I think is probably appropriate to keep another 24-hour 48 hours
[2019-12-08] MEDS: UMECLIDINIUM BROMIDE 62.5 MCG/DOSE IH SCH (12:32)
--- NOTE | 2019-12-08 14:47 | RADIOLOGY REPORT (SQ) ---
EXAM DESCRIPTION: CHEST SINGLE VIEW IMAGES COMPLETED DATE/TIME: 12/08/2019 2:25 pm REASON FOR STUDY: pneumonia COMPARISON: 12/04/2019 EXAM PARAMETERS: NUMBER OF VIEWS: One view. TECHNIQUE: Single frontal radiographic view of the chest acquired. RADIATION DOSE: NA LIMITATIONS: None. FINDINGS: LUNGS AND PLEURA: Mildly worsened airspace opacities in the left lung base when compared t o prior exam. Mildly improved airspace opacities in the right lung base when compared to prior exam. No definite pleural effusions. MEDIASTINUM AND HILAR STRUCTURES: Unchanged HEART AND VASCULAR STRUCTURES: Unchanged BONES: No acute findings. HARDWARE: Stable appearance of the sternal wires. OTHER: Left upper extremity PICC in place with the tip projecting near the superior cavoatrial juncti on. IMPRESSION: Mixed picture lung exam with worsening in the left lung base and improvement in the righ t lung base. TECHNICAL DOCUMENTATION: JOB ID: [id number] 2010 [employer]- All Rights Reserved Reading location - IP/workstation name: [email or web address]
[2019-12-08] MEDS: PHARMACY COMMUNICATION ORDER MC SCH (17:15)
[2019-12-08] MEDS: FUROSEMIDE 40 MG TABLET PO SCH (17:18)
[2019-12-08] MEDS: TAMSULOSIN HCL 0.4 MG CAP.SR.24H PO SCH (17:18)
[2019-12-08] MEDS: ENOXAPARIN SODIUM INJ 40 MG/0.4 ML DISP.SYRIN SUBCUT SCH (22:02)
[2019-12-08] MEDS: ATORVASTATIN CALCIUM 20 MG TABLET PO SCH (22:02)
[2019-12-09] MEDS: MEROPENEM 1 GM in NORMAL SALINE 50 ML IV SCH ×2 (06:10→14:20)
[2019-12-09] MEDS: PANTOPRAZOLE SODIUM 20 MG TABLET.DR PO SCH (06:10)
[2019-12-09 06:28] LABS: HEMATOCRIT 25.5 % (37.9-51.0); HEMOGLOBIN 8.1 g/dL (13.5-17.0); MEAN CORPUSCULAR HEMOGLOBIN 23.2 pg (27.0-33.4); MEAN CORPUSCULAR VOLUME 73 fl (80-97); PLATELET COUNT 164 10^3/uL (150-450); RED CELL DISTRIBUTION WIDTH 20.4 % (11.5-14.0); WHITE BLOOD COUNT 5.2 10^3/uL (4.0-10.5)
[2019-12-09 06:53] LABS: ALBUMIN 3.1 g/dL (3.5-5.0); ALKALINE PHOSPHATASE 57 U/L (38-126); ANION GAP 6 (5-19); ASPARTATE AMINO TRANSFERASE 36 U/L (17-59); BILIRUBIN,TOTAL 0.5 mg/dL (0.2-1.3); BLOOD UREA NITROGEN 14 mg/dL (7-20); CALCIUM 8.3 mg/dL (8.4-10.2); CARBON DIOXIDE 31 mmol/L (22-30); CHLORIDE 94 mmol/L (98-107); GLUCOSE 100 mg/dL (75-110); POTASSIUM 4.1 mmol/L (3.6-5.0); TOTAL PROTEIN 5.9 g/dL (6.3-8.2)
[2019-12-09 06:54] LABS: ABSOLUTE LYMPHOCYTES# (MANUAL) 1.6 10^3/uL (0.5-4.7); ABSOLUTE MONOCYTES # (MANUAL) 0.4 10^3/uL (0.1-1.4); BAND NEUTROPHILS % (MANUAL) 1 % (3-5); BASOPHILS % (MANUAL) 0 % (0-2); EOSINOPHILS % (MANUAL) 2 % (0-6); LYMPHOCYTES % (MANUAL) 30 % (13-45); MONOCYTES % (MANUAL) 8 % (3-13); SEGMENTED NEUTROPHILS % (MAN) 59 % (42-78); TOTAL CELLS COUNTED 100
[2019-12-09 06:55] LABS: ANISOCYTOSIS 2+; BURR CELLS 1+; HYPOCHROMASIA 1+; PLATELET COMMENT ADEQUATE; POLYCHROMASIA 1+
--- NOTE | 2019-12-09 08:35 | PDOC PROGRESS REPORT ---
Subjective Progress Note for:: 12/09/19 Subjective:: 11/29/19 16:50 BUTCH BAILEY MD The patient is a 69-year-old male with history of COPD, history of Present Illness: JOSE L FAROOQ is a 69 year old male with history of COPD, coronary artery disease status post CABG and multiple coronary interventions, heart failure with reduced ejection fraction, peripheral vascular disease status post aortoiliac bypass graft, smoker in remission who was admitted on 11/29/2019 with decompensated heart failure. He had been followed by my partner, Dr. Ivey. A review of Dr. Ivey's notes as well as the hospitalist service reveals that he was found to be anemic and his heart failure had been attributed to his anemia. He received iron infusion with improvement in his symptoms. He was also found to have nosocomial pneumonia and is currently treated for it. He is followed by [facility]. He feels well this morning and specifically denies chest pain, shortness of breath, lower extremity edema, palpitations, syncope and presyncope. He is telemetry shows normal sinus rhythm with PACs and PVCs. His most recent chemistry is remarkable for hyponatremia with a sodium of 129, normal potassium and normal renal function. His fluid balance since admission is +4.6 L. 12/09/2019: The patient had an uneventful night except for one episode of transient, asymptomatic hypotension which resolved spontaneously. He has been responding well to p.o. diuresis even though his 1500 cc fluid limit has not been enforced. He feels very well this morning and is eager to go home. His telemetry shows normal sinus rhythm with PVCs and occasional ventricular bigeminy. He states that he had been walking in the [place] without any cardiovascular symptoms. His hyponatremia is improving. Physical exam on 12/08/2019: GENERAL: Pleasant and conversational. Oriented x3 with normal mood. Looks chronically ill. Pale. Not in acute distress. Well groomed and well developed. HEENT: Normocephalic, atraumatic. Pupils equal. Sclerae anicteric. Oropharynx moist. NECK: No JVD. No carotid bruits. LUNGS: Clear to auscultation bilaterally. Normal respiratory effort without the use of accessory muscles or intercostal retractions. CARDIOVASCULAR: Regular rate and rhythm, normal S1 and S2 without murmurs, rubs, or gallops. PMI not displaced. EXTREMITIES: No edema, no cyanosis, no clubbing. +2 pulses femoral and pedal pulses bilaterally. SKIN: No lesions or rashes. MUSCULOSKELETAL: No chest tenderness to palpation. NEUROLOGIC: Nonfocal. No gross sensory or motor deficits bilateral upper or lower extremities. Cardiac studies: Echocardiogram on 11/29/2019: -LV systolic function is mildly reduced. -EF 40 to 45%. -Mild to moderate RVE. -Mild to moderate MR, trace AI, mild TR. -Mild pulmonary hypertension. Reason For Visit: ACUTE SYSTOLIC HEART FAILURE, MICROCYTIC ANEMIA Physical Exam Vital Signs: Temp Pulse Resp BP Pulse Ox 97.8 F 73 18 100/49 L 95 12/09/19 03:46 12/09/19 03:46 12/09/19 03:46 12/09/19 03:46 12/09/19 05:37 Intake & Output 12/07/19 12/08/19 12/09/19 06:59 06:59 06:59 Intake Total 3493 2760 1420 Output Total 2150 2150 2075 Balance 1343 610 -655 Weight 64.6 kg 65.7 kg Results Laboratory Results: 11/29/19 11/29/19 11/29/19 18:14 21:16 21:16 Creatine Kinase 750 H CK-MB (CK-2) 13.70 H Troponin I < 0.012 NT-Pro-B Natriuret Pep 5020 H 11/30/19 11/30/19 11/30/19 05:13 05:13 13:02 Creatine Kinase 486 H 476 H CK-MB (CK-2) 8.94 H Troponin I 0.012 NT-Pro-B Natriuret Pep 11/30/19 12/06/19 12/08/19 13:02 11:20 05:50 Creatine Kinase CK-MB (CK-2) 11.50 H Troponin I < 0.012 NT-Pro-B Natriuret Pep 3080 H 3400 H Impressions: Chest CT 11/30/19 00:00 IMPRESSION: STABLE CHRONIC EMPHYSEMATOUS CHANGES AND CHRONIC SCARRING IN THE RIGHT LUNG BASE. NO ACUTE FINDING ON NON-CONTRASTED CHEST CT. Chest/Abdomen CTA 12/02/19 00:00 IMPRESSION: No emboli visualized in the main pulmonary arteries or the segmental branches.New multifocal patchy -nodular airspace opacities throughout the left lower lobe with more dense consolidation in the inferior-posterior segments. Similar nodular opacities in the right lower lobe. No pleural effusion. PICC Line Insertion 12/04/19 13:49 IMPRESSION: SUCCESSFUL PLACEMENT OF A 5 FR DUAL LUMEN 47 CM PICC IN THE LEFT BASILIC VEIN. Chest X-Ray 12/08/19 00:00 IMPRESSION: Mixed picture lung exam with worsening in the left lung base and improvement in the right lung base. MCV 72 fl (80-97) L 12/07/19 13:00 MCH 23.3 pg (27.0-33.4) L 12/07/19 13:00 MCHC 32.4 g/dL (32.0-36.0) 12/07/19 13:00 RDW 19.8 % (11.5-14.0) H 12/07/19 13:00 Seg Neutrophils % Not Reportable 12/07/19 13:00 Chloride 98 mmol/L (98-107) 12/08/19 05:50 Carbon Dioxide 27 mmol/L (22-30) 12/08/19 05:50 Anion Gap 10 (5-19) 12/08/19 05:50 Est GFR ( Amer) > 60 (>60) 12/08/19 05:50 Glucose 99 mg/dL (75-110) 12/08/19 05:50 Calcium 7.3 mg/dL (8.4-10.2) L 12/08/19 05:50 Magnesium 2.2 mg/dL (1.6-2.3) 11/30/19 05:13 Iron 25.6 ug/dL (49-181) L 11/29/19 18:14 TIBC 514 ug/dL (250-450) H 11/29/19 18:14 % Saturation 5 % 11/29/19 18:14 Ferritin 8.11 ng/mL (17.9-464.0) L 11/29/19 18:14 Total Bilirubin 0.5 mg/dL (0.2-1.3) 12/08/19 05:50 AST 40 U/L (17-59) 12/08/19 05:50 Alkaline Phosphatase 51 U/L (38-126) 12/08/19 05:50 Total Protein 6.1 g/dL (6.3-8.2) L 12/08/19 05:50 Albumin 2.8 g/dL (3.5-5.0) L 12/08/19 05:50 TSH 0.36 uIU/mL (0.47-4.68) L 11/29/19 18:14 TSH Cancelled 11/29/19 18:14 Free T4 1.63 ng/dL (0.78-2.19) 11/29/19 18:14 Free T3 pg/mL 3.76 pg/mL (2.77-5.27) 11/29/19 18:14 Urine Color YELLOW 12/03/19 12:28 Urine Appearance CLEAR 12/03/19 12:28 Urine pH 5.0 (5.0-9.0) 12/03/19 12:28 Ur Specific [place] 1.023 12/03/19 12:28 Urine Protein NEGATIVE mg/dL (NEGATIVE) 12/03/19 12:28 Urine Glucose (UA) NEGATIVE mg/dL (NEGATIVE) 12/03/19 12:28 Urine Ketones NEGATIVE mg/dL (NEGATIVE) 12/03/19 12:28 Urine Blood NEGATIVE (NEGATIVE) 12/03/19 12:28 Urine Nitrite NEGATIVE (NEGATIVE) 12/03/19 12:28 Ur Leukocyte Esterase NEGATIVE (NEGATIVE) 12/03/19 12:28 Urine WBC (Auto) 0 /HPF 12/03/19 12:28 Urine RBC (Auto) 1 /HPF 12/03/19 12:28 11/29/19 11/29/19 11/29/19 18:14 21:16 21:16 Creatine Kinase 750 H CK-MB (CK-2) 13.70 H Troponin I < 0.012 NT-Pro-B Natriuret Pep 5020 H 11/30/19 11/30/19 11/30/19 05:13 05:13 13:02 Creatine Kinase 486 H 476 H CK-MB (CK-2) 8.94 H Troponin I 0.012 NT-Pro-B Natriuret Pep 11/30/19 12/06/19 12/08/19 13:02 11:20 05:50 Creatine Kinase CK-MB (CK-2) 11.50 H Troponin I < 0.012 NT-Pro-B Natriuret Pep 3080 H 3400 H Current Medication List Generic Name Dose Route Start Last Admin Trade Name Freq PRN Reason Stop Dose Admin Acetaminophen 650 mg 12/03/19 00:42 12/08/19 00:00 Tylenol 325 Mg Tablet PO 01/02/20 00:41 650 mg Q4HP PRN Administration PAIN Albuterol 2 puff 11/29/19 21:18 Ventolin Hfa 8 Gm Mdi IH 12/29/19 21:17 Q4HP PRN SHORTNESS OF BREATH Albuterol/Ipratropium 3 ml 12/05/19 15:36 12/07/19 20:12 Duoneb 3 Ml Ampul NEB 01/04/20 15:35 3 ml [id number] PRN Administration SHORTNESS OF BREATH Atorvastatin Calcium 20 mg 11/29/19 22:00 12/08/19 22:02 Lipitor 20 Mg Tablet PO 12/29/19 21:59 20 mg QHS SHREYA Administration Bisacodyl 20 mg 12/04/19 18:42 12/06/19 11:04 Dulcolax 5 Mg Tablet PO 01/03/20 18:41 20 mg DAILYP PRN Administration CONSTIPATION Enoxaparin Sodium 40 mg 11/30/19 22:00 12/08/19 22:02 Lovenox Inj 40 Mg/0.4 Ml Disp.Syrin SUBCUT 12/29/19 21:59 40 mg QHS SHREYA Administration Fluticasone/Vilanterol 1 inh 11/29/19 22:00 12/08/19 10:02 Breo 200-25 Mcg Ellipta 14 Dose/Dpi 12/29/19 21:59 1 inhaler DAILY SHREYA Administration Furosemide 40 mg 12/08/19 18:00 12/08/19 17:18 Lasix 40 Mg Tablet PO 01/07/20 17:59 40 mg BID SHREYA Administration Heparin Sodium (Porcine) 30 unit 12/05/19 22:00 12/08/19 22:02 Heparin Flush 10 Unit/Ml 5 Ml Disp.Syrg IV 01/04/20 21:59 30 unit Q12 SHREYA Administration Heparin Sodium (Porcine) 30 unit 12/05/19 14:00 12/08/19 14:46 Heparin Flush 10 Unit/Ml 5 Ml Disp.Syrg IV 01/04/20 13:59 30 unit .AFTER EACH USE PRN Administration Ferric Carboxymaltose 750 mg/ 265 mls @ 1,060 mls/hr 11/29/19 22:00 12/06/19 23:15 Sodium Chloride IV 12/29/19 21:59 Infused Th@2200 SHREYA Infusion Meropenem 1 gm/ Sodium 50 mls @ 100 mls/hr 12/02/19 22:00 12/09/19 06:10 Chloride IV 12/09/19 21:59 100 mls/hr Q8 SHREYA 100 mls/hr Administration Linezolid 600 mg in 300 mls @ 300 mls/hr 12/03/19 10:00 12/08/19 23:58 Zyvox Rtu 600 Mg/300 Ml Premixed IV 12/10/19 09:59 Infused Q12 SHREYA Infusion Levofloxacin 750 mg 12/05/19 10:00 12/07/19 10:36 Levaquin 750 Mg Tablet PO 12/12/19 09:59 750 mg Q2D@1000 SHREYA Administration Metoprolol Succinate 25 mg 12/06/19 10:00 12/08/19 10:01 Toprol Xl 25 Mg Tab.Sr PO 01/05/20 09:59 25 mg DAILY SHREYA Administration Morphine Sulfate 60 mg 12/04/19 10:00 12/08/19 22:00 Ms-Contin Sr 30 Mg Tablet PO 12/11/19 09:59 60 mg Q12 SHREYA Administration Ondansetron HCl 8 mg 11/30/19 16:16 12/01/19 19:20 Zofran 8 Mg Tablet PO 12/30/19 16:15 8 mg Q6HP PRN Administration NAUSEA Ondansetron HCl 4 mg 12/01/19 21:39 12/04/19 10:31 Zofran Inj/Pf 4 Mg/2 Ml Sdv IV 12/31/19 21:38 4 mg Q6HP PRN Administration NAUSEA Pantoprazole Sodium 20 mg 11/30/19 06:00 12/09/19 06:[address] Tablet PO 12/30/19 05:59 20 mg Q6AM SHREYA Administration Pharmacy Profile Note 1 each 11/30/19 18:00 12/08/19 17:15 Medication Communication Order 12/30/19 17:59 Not Given 1800 SHREYA Sacubitril/Valsartan 1 tab 12/06/19 11:00 12/08/19 22:02 Entresto 24 Mg/26 Mg Tablet PO 01/05/20 10:59 1 tab Q12 SHREYA Administration Sodium Chloride 10 ml 12/05/19 22:00 12/08/19 22:03 Nacl 0.9% Inj/Pf 10 Ml Sdv IV 01/04/20 21:59 10 ml Q12 SHREYA Administration Sodium Chloride 10 ml 12/05/19 14:00 12/08/19 14:46 Nacl 0.9% Inj/Pf 10 Ml Sdv IV 01/04/20 13:59 10 ml .AFTER EACH USE PRN Administration Tamsulosin HCl 0.4 mg 11/29/19 22:00 12/08/19 17:18 Flomax 0.4 Mg Cap.Sr PO 12/29/19 21:59 0.4 mg QPM SHREYA Administration Umeclidinium [place] 1 inh 11/29/19 22:00 12/08/19 12:32 Incruse 62.5 Mcg Ellipta 7 Dose/Dpi IH 12/29/19 21:59 Not Given DAILY SHREYA Discontinued Medications Generic Name Dose Route Start Last Admin Trade Name Freq PRN Reason Stop Dose Admin Acetaminophen Confirm 12/03/19 00:22 12/03/19 00:49 Tylenol 325 Mg Tablet Administered 12/03/19 00:23 325 mg Dose Administration 325 mg .ROUTE .STK-MED ONE Albuterol Confirm 12/02/19 02:54 12/02/19 03:03 Ventolin Hfa 8 Gm Mdi Administered 12/02/19 02:55 Not Given Dose 60 puff IH .STK-MED ONE Enoxaparin Sodium 40 mg 11/29/19 22:00 11/29/19 22:11 Lovenox Inj 40 Mg/0.4 Ml Disp.Syrin SUBCUT 12/29/19 21:59 40 mg DAILY SHREYA Administration Enoxaparin Sodium 40 mg 11/29/19 22:15 11/30/19 00:27 Lovenox Inj 40 Mg/0.4 Ml Disp.Syrin SUBCUT 11/29/19 22:16 Not Given NOW ONE Furosemide 40 mg 12/01/19 14:45 12/02/19 09:29 Lasix 40 Mg Tablet PO 12/31/19 14:44 40 mg DAILY SHREYA Administration Furosemide 20 mg 12/06/19 10:00 12/07/19 10:48 Lasix Inj/Pf 20 Mg/2 Ml Sdv IV 01/05/20 09:59 Not Given DAILY SHREYA Furosemide 40 mg 12/07/19 10:15 12/08/19 10:02 Lasix Inj/Pf 40 Mg/4 Ml Sdv IV 01/06/20 10:14 40 mg DAILY SHREYA Administration Heparin Sodium (Porcine) Confirm 12/04/19 15:54 12/04/19 16:42 Heparin Flush 10 Unit/Ml 5 Ml Disp.Syrg Administered 12/04/19 15:55 Not Given Dose 50 unit IV .STK-MED ONE Furosemide 250 mg/ Sodium 250 mls @ 1 mls/hr 11/29/19 19:56 12/01/19 15:19 Chloride IV 12/29/19 19:55 Infused CONTINUOUS PRN Infusion THIS MED IS NOT "PRN" 1 MG/HR Sodium Chloride 1,000 mls @ 50 mls/hr 12/02/19 13:06 Nacl 0.9% 1000 Ml Iv Soln IV 01/01/20 13:05 CONTINUOUS PRN THIS MED IS NOT "PRN" Sodium Chloride 1,000 mls @ 50 mls/hr 12/02/19 16:14 Nacl 0.9% 1000 Ml Iv Soln IV 01/01/20 16:13 CONTINUOUS PRN THIS MED IS NOT "PRN" Sodium Chloride 250 mls @ 50 mls/hr 12/02/19 16:30 12/02/19 21:55 Nacl 0.9% 250 Ml Iv Soln IV 12/02/19 21:29 Infused BOLUS ONE Infusion Meropenem 1 gm/ Sodium 50 mls @ 100 mls/hr 12/02/19 18:00 Chloride IV 12/09/19 17:59 Q8 SHREYA Linezolid 600 mg in 300 mls @ 300 mls/hr 12/02/19 18:00 12/02/19 18:59 Zyvox Rtu 600 Mg/300 Ml Premixed IV 12/09/19 17:59 Not Given Q12A SHREYA Linezolid 600 mg in 300 mls @ 300 mls/hr 12/02/19 22:00 12/02/19 22:20 Zyvox Rtu 600 Mg/300 Ml Premixed IV 12/09/19 17:59 Infused Q12 SHREYA Infusion Sodium Chloride 500 mls @ 0 mls/hr 12/02/19 19:30 12/02/19 20:16 Nacl 0.9% 500 Ml Iv Soln IV 12/02/19 19:31 Infused BOLUS ONE Infusion Linezolid Confirm 12/02/19 19:25 12/02/19 19:53 Zyvox Rtu 600 Mg/300 Ml Premixed Administered 12/02/19 19:26 Not Given Dose 600 mg in 300 mls @ ud IV .STK-MED ONE Dopamine HCl/Dextrose 800 mg in 250 mls @ 0 mls/hr 12/02/19 23:54 12/03/19 00:27 Dopamine Rtu 800 Mg-D5w 250 Ml (Adult) Premix IV 01/01/20 23:53 4.9 mls/hr CONTINUOUS PRN 4.9 mls/hr THIS MED IS NOT "PRN" Administration Protocol Titrate Lactated Ringer's 1,000 mls @ 50 mls/hr 12/03/19 20:20 12/07/19 01:45 Lactated Ringers 1000 Ml Iv Soln IV 01/02/20 20:19 Infused CONTINUOUS PRN Infusion THIS MED IS NOT "PRN" Dopamine HCl/Dextrose 800 mg in 250 mls @ 0 mls/hr 12/03/19 21:55 Dopamine Rtu 800 Mg-D5w 250 Ml (Adult) Premix IV 01/02/20 21:54 CONTINUOUS PRN THIS MED IS NOT "PRN" Protocol Titrate Dopamine HCl/Dextrose 800 mg in 250 mls @ 0 mls/hr 12/03/19 22:26 12/05/19 09:45 Dopamine Rtu 800 Mg-D5w 250 Ml (Adult) Premix IV 01/02/20 22:25 0 mls/hr CONTINUOUS PRN 0 mls/hr THIS MED IS NOT "PRN" Titration Protocol Titrate Levofloxacin 750 mg 12/02/19 06:00 12/03/19 09:59 Levaquin 750 Mg Tablet PO 12/09/19 05:59 750 mg DAILY SHREYA Administration Meropenem 1 gm 12/02/19 18:08 Merrem 1 Gm Vial IV 12/03/19 07:00 ASDIR PRN Meropenem Confirm 12/02/19 19:24 12/02/19 19:52 Merrem 1 Gm Vial Administered 12/02/19 19:25 Not Given Dose 1 gm .ROUTE .STK-MED ONE Meropenem Confirm 12/02/19 19:31 12/02/19 19:53 Merrem 1 Gm Vial Administered 12/02/19 19:32 Not Given Dose 1 gm .ROUTE .STK-MED ONE Metoprolol Succinate 25 mg 11/29/19 22:00 11/29/19 22:10 Toprol Xl 25 Mg Tab.Sr PO 12/29/19 21:59 25 mg DAILY SHREYA Administration Metoprolol Succinate 25 mg 11/30/19 22:00 12/01/19 22:09 Toprol Xl 25 Mg Tab.Sr PO 12/30/19 21:59 25 mg QHS SHREYA Administration Metoprolol Succinate 25 mg 11/29/19 22:30 11/30/19 00:27 Toprol Xl 25 Mg Tab.Sr PO 11/29/19 22:31 Not Given NOW ONE Metoprolol Succinate 25 mg 12/05/19 16:20 Toprol Xl 25 Mg Tab.Sr PO 01/04/20 16:19 DAILYP PRN IF SBP > 100 Morphine Sulfate 60 mg 11/29/19 22:00 12/03/19 10:00 Ms-Contin Sr 30 Mg Tablet PO 12/06/19 21:59 Not Given Q12 SHREYA Morphine Sulfate 60 mg 12/03/19 17:30 12/03/19 17:08 Ms-Contin Sr 30 Mg Tablet PO 12/03/19 17:31 60 mg NOW ONE Administration Phentolamine Mesylate 5 mg 12/03/19 10:30 12/03/19 10:45 Regitine Inj 5 Mg Vial INFIL 12/03/19 10:31 5 mg NOW ONE Administration Sacubitril/Valsartan 1 tab 11/29/19 22:00 11/30/19 17:38 Entresto 24 Mg/26 Mg Tablet PO 12/29/19 21:59 1 tab BID SHREYA Administration Sacubitril/Valsartan 1 tab 12/01/19 10:00 12/02/19 09:30 Entresto 49 Mg/51 Mg Tablet PO 12/31/19 09:59 1 tab BID SHREYA Administration Assessment & Plan - Diagnosis (1) Anemia Qualifiers: Anemia type: iron deficiency Is this a current diagnosis for this admission?: Yes Plan: No evidence of active bleeding. He has been treated with iron infusion and his hemoglobin is stable. Recommendations: -GI evaluation. -Further treatment per hospitalist team. (2) CAD (coronary artery disease) Qualifiers: Coronary Disease-Associated Artery/Lesion type: [place] artery [place] vs. transplanted heart: [place] heart Associated angina: without angina Qualified Code(s): I25.10 - Atherosclerotic heart disease of [place] coronary artery without angina pectoris Is this a current diagnosis for this admission?: Yes Plan: No evidence of cardiac ischemia at this point. Recommendations: -Continue with current medical management. -Given anemia should try to keep hemoglobin above 8 g/dL given coronary artery disease and CABG. -May be reasonable to hold off on antiplatelet therapy until anemia is fully evaluated. -Outpatient follow-up with [facility] cardiology. (3) CHF (congestive heart failure), NYHA class II Qualifiers: Congestive heart failure type: systolic Congestive heart failure chronicity: acute on chronic Qualified Code(s): I50.23 - Acute on chronic systolic (congestive) heart failure Is this a current diagnosis for this admission?: Yes Plan: He had been tolerating low-dose metoprolol as well as Entresto which was started at a lower dose given his episode of hypotension while in the hospital. He had another transient episode of asymptomatic hypotension last night but this morning is at goal. He is asymptomatic and without evidence of decompensated heart failure on exam. Given his occasional episodes of hypotension I will decrease his p.o. Lasix to 20 mg twice daily. 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 Recommendations: -The patient may be discharged home from the cardiovascular standpoint. -Decrease Lasix to 20 mg p.o. twice daily given his episodes of hypotension. -Follow-up with outpatient cardiology within 1 week of discharge. (4) ANN (acute kidney injury) Is this a current diagnosis for this admission?: Yes Plan: Now resolved. We will continue to follow-up clinically and with labs. (5) Nosocomial pneumonia Is this a current diagnosis for this admission?: Yes Plan: Receiving antibiotics with clinical improvement. Further management per primary team.
--- NOTE | 2019-12-09 10:26 | PDOC PROGRESS REPORT ---
Subjective Progress Note for:: 12/09/19 Subjective:: Patient is currently doing well Patient's chest x-ray is stable except worsening on the right side Patient still on antibiotic Patient hemoglobin is 8.1 Patient is clear from the cardiology standpoint currently on a p.o. Lasix Reason For Visit: ACUTE SYSTOLIC HEART FAILURE, MICROCYTIC ANEMIA Physical Exam Vital Signs: Temp Pulse Resp BP Pulse Ox 98.0 F 75 16 109/71 99 12/09/19 07:35 12/09/19 07:35 12/09/19 07:35 12/09/19 07:35 12/09/19 07:35 Intake & Output 12/08/19 12/09/19 12/10/19 06:59 06:59 06:59 Intake Total 2760 1470 Output Total 2150 2325 Balance 610 -855 Weight 65.7 kg 65 kg General appearance: PRESENT: no acute distress, well-developed, well-nourished Head exam: PRESENT: atraumatic, normocephalic Eye exam: PRESENT: conjunctiva pink, EOMI, PERRLA. ABSENT: scleral icterus Ear exam: PRESENT: normal external ear exam Mouth exam: PRESENT: moist, tongue midline Neck exam: PRESENT: full ROM. ABSENT: carotid bruit, JVD, lymphadenopathy, thyromegaly Respiratory exam: PRESENT: clear to auscultation josselyn Cardiovascular exam: PRESENT: RRR. ABSENT: diastolic murmur, rubs, systolic murmur Pulses: PRESENT: normal dorsalis pedis pul, +2 pedal pulses bilateral Vascular exam: PRESENT: normal capillary refill GI/Abdominal exam: PRESENT: normal bowel sounds, soft. ABSENT: distended, guarding, mass, organolmegaly, rebound, tenderness Rectal exam: PRESENT: deferred Neurological exam: PRESENT: alert, awake, oriented to person, oriented to place, oriented to time, oriented to situation, CN II-XII grossly intact. ABSENT: motor sensory deficit Psychiatric exam: PRESENT: appropriate affect, normal mood. ABSENT: homicidal ideation, suicidal ideation Skin exam: PRESENT: dry, intact, warm. ABSENT: cyanosis, rash Results Laboratory Results: 12/09/19 06:15 12/09/19 06:15 12/09/19 12/09/19 06:15 06:15 WBC 5.2 RBC 3.50 L Hgb 8.1 L Hct 25.5 L MCV 73 L MCH 23.2 L MCHC 32.0 RDW 20.4 H Plt Count 164 Seg Neutrophils % Not Reportable Sodium 131.0 L Potassium 4.1 Chloride 94 L Carbon Dioxide 31 H Anion Gap 6 BUN 14 Creatinine 0.68 Est GFR ( Amer) > 60 Glucose 100 Calcium 8.3 L Total Bilirubin 0.5 AST 36 Alkaline Phosphatase 57 Total Protein 5.9 L Albumin 3.1 L 11/29/19 11/29/19 11/29/19 18:14 21:16 21:16 Creatine Kinase 750 H CK-MB (CK-2) 13.70 H Troponin I < 0.012 NT-Pro-B Natriuret Pep 5020 H 11/30/19 11/30/19 11/30/19 05:13 05:13 13:02 Creatine Kinase 486 H 476 H CK-MB (CK-2) 8.94 H Troponin I 0.012 NT-Pro-B Natriuret Pep 11/30/19 12/06/19 12/08/19 13:02 11:20 05:50 Creatine Kinase CK-MB (CK-2) 11.50 H Troponin I < 0.012 NT-Pro-B Natriuret Pep 3080 H 3400 H Impressions: Chest CT 11/30/19 00:00 IMPRESSION: STABLE CHRONIC EMPHYSEMATOUS CHANGES AND CHRONIC SCARRING IN THE RIGHT LUNG BASE. NO ACUTE FINDING ON NON-CONTRASTED CHEST CT. Chest/Abdomen CTA 12/02/19 00:00 IMPRESSION: No emboli visualized in the main pulmonary arteries or the segmental branches.New multifocal patchy -nodular airspace opacities throughout the left lower lobe with more dense consolidation in the inferior-posterior segm ents. Similar nodular opacities in the right lower lobe. No pleural effusion. PICC Line Insertion 12/04/19 13:49 IMPRESSION: SUCCESSFUL PLACEMENT OF A 5 FR DUAL LUMEN 47 CM PICC IN THE LEFT BASILIC VEIN. Chest X-Ray 12/08/19 00:00 IMPRESSION: Mixed picture lung exam with worsening in the left lung base and improvement in the right lung base. Assessment & Plan - Diagnosis (1) Acute systolic heart failure Is this a current diagnosis for this admission?: Yes Plan: Continues the p.o. Lasix (2) CAD (coronary artery disease) Qualifiers: Coronary Disease-Associated Artery/Lesion type: [place] artery [place] vs. transplanted heart: [place] heart Associated angina: without angina Qualified Code(s): I25.10 - Atherosclerotic heart disease of [place] coronary artery without angina pectoris Is this a current diagnosis for this admission?: Yes (3) COPD (chronic obstructive pulmonary disease) Qualifiers: COPD type: unspecified COPD Qualified Code(s): J44.9 - Chronic obstructive pulmonary disease, unspecified Is this a current diagnosis for this admission?: Yes (4) Chronic pain syndrome Is this a current diagnosis for this admission?: Yes (5) Iron deficiency anemia Qualifiers: Iron deficiency anemia type: chronic blood loss Qualified Code(s): D50.0 - Iron deficiency anemia secondary to blood loss (chronic) Is this a current diagnosis for this admission?: Yes Plan: Consult the hematology (6) Nosocomial pneumonia Is this a current diagnosis for this admission?: Yes Plan: Patient with several antibiotics - Time Time Spent with patient: 15-24 minutes Level of Care: IMCU Medications reviewed and adjusted accordingly: Yes Anticipated discharge: Home Within: Other - Plan Summary Plan Summary: Adjust antibiotics
[2019-12-09] MEDS: MORPHINE SULFATE SR 30 MG TABLET PO SCH ×2 (10:29→21:47)
[2019-12-09] MEDS: FUROSEMIDE 40 MG TABLET PO SCH ×2 (10:30→17:21)
[2019-12-09] MEDS: LEVOFLOXACIN 750 MG TABLET PO SCH (10:30)
[2019-12-09] MEDS: SACUBITRIL/VALSARTAN 24 MG/26 MG TABLET PO SCH ×2 (10:30→21:47)
[2019-12-09] MEDS: METOPROLOL SUCCINATE 25 MG TAB.SR.24H PO SCH (10:30)
[2019-12-09] MEDS: FLUTICASONE/VILANTEROL 200-25 MCG/DOSE IH SCH (10:30)
[2019-12-09] MEDS: LINEZOLID 600 MG/300 ML RTUPB IV SCH ×2 (10:31→22:56)
[2019-12-09] MEDS: NORMAL SALINE 10 ML SDV (SCHEDULED) IV SCH ×2 (10:31→21:49)
[2019-12-09] MEDS: UMECLIDINIUM BROMIDE 62.5 MCG/DOSE IH SCH (11:41)
[2019-12-09] MEDS: TAMSULOSIN HCL 0.4 MG CAP.SR.24H PO SCH (17:21)
[2019-12-09] MEDS: PHARMACY COMMUNICATION ORDER MC SCH (18:56)
[2019-12-09] MEDS: ENOXAPARIN SODIUM INJ 40 MG/0.4 ML DISP.SYRIN SUBCUT SCH (21:46)
[2019-12-09] MEDS: ATORVASTATIN CALCIUM 20 MG TABLET PO SCH (21:47)
[2019-12-09] MEDS: ACETAMINOPHEN 325 MG TABLET PO PRN (21:48)
[2019-12-09] MEDS ORDERED: LINEZOLID 600 MG/300 ML RTUPB IV ONE (22:14)
[2019-12-09] MEDS ORDERED: PHENOL/SODIUM PHENOLATE 100 SPRAY/177 ML BOTTLE ONE (22:48)
[2019-12-10] MEDS: PANTOPRAZOLE SODIUM 20 MG TABLET.DR PO SCH (05:50)
[2019-12-10 06:55] LABS: HEMATOCRIT 25.2 % (37.9-51.0); HEMOGLOBIN 8.2 g/dL (13.5-17.0); MEAN CORPUSCULAR HEMOGLOBIN 23.7 pg (27.0-33.4); MEAN CORPUSCULAR HGB CONC 32.6 g/dL (32.0-36.0); MEAN CORPUSCULAR VOLUME 73 fl (80-97); PLATELET COUNT 161 10^3/uL (150-450); RED BLOOD COUNT 3.46 10^6/uL (4.35-5.55); WHITE BLOOD COUNT 5.6 10^3/uL (4.0-10.5)
[2019-12-10 07:26] LABS: ALBUMIN 3.3 g/dL (3.5-5.0); ALKALINE PHOSPHATASE 63 U/L (38-126); ANION GAP 6 (5-19); ASPARTATE AMINO TRANSFERASE 35 U/L (17-59); BILIRUBIN,TOTAL 0.5 mg/dL (0.2-1.3); BLOOD UREA NITROGEN 17 mg/dL (7-20); CALCIUM 8.3 mg/dL (8.4-10.2); CARBON DIOXIDE 31 mmol/L (22-30); CHLORIDE 93 mmol/L (98-107); GLUCOSE 86 mg/dL (75-110); POTASSIUM 4.3 mmol/L (3.6-5.0); TOTAL PROTEIN 6.1 g/dL (6.3-8.2)
[2019-12-10] MEDS: IPRATROPIUM/ALBUTEROL 0.5-2.5 MG/3 ML AMPUL NEB PRN (07:45)
[2019-12-10] MEDS: ONDANSETRON HCL INJ/PF 4 MG/2 ML SDV IV PRN (08:01)
[2019-12-10 08:20] LABS: ABSOLUTE LYMPHOCYTES# (MANUAL) 1.2 10^3/uL (0.5-4.7); ABSOLUTE MONOCYTES # (MANUAL) 0.4 10^3/uL (0.1-1.4); ANISOCYTOSIS 2+; BASOPHILS % (MANUAL) 0 % (0-2); EOSINOPHILS % (MANUAL) 0 % (0-6); HYPOCHROMASIA SLIGHT; LYMPHOCYTES % (MANUAL) 22 % (13-45); MONOCYTES % (MANUAL) 8 % (3-13); OVALOCYTES SLIGHT; POLYCHROMASIA 1+; SEGMENTED NEUTROPHILS % (MAN) 70 % (42-78); TOTAL CELLS COUNTED 100
[2019-12-10 08:21] LABS: BURR CELLS 1+; PLATELET COMMENT ADEQUATE; POIKILOCYTOSIS 1+
--- NOTE | 2019-12-10 08:32 | PDOC CONSULTATION ---
Consultation Consult Date: 12/10/19 Attending physician:: GISELA RASMUSSEN Provider Consulted: ROBE SANDOVAL Consult reason:: Asked by Dr. Rasmussen to see patient with anemia History of Present Illness Admission Date/PCP: 11/29/19 16:50 BUTCH BAILEY MD Patient complains of: Weakness History of Present Illness: JOSE L FAROOQ is a 69 year old male with multiple medical issues admitted for CHF exacerbation as well as anemia, of note about a week to 2 weeks prior to coming in he notes he was having pretty dark/black stool. He only had 2 small bowel movements since being admitted, those were also dark. He apparently did have a colon cancer about 2 years ago. He was scheduled for an outpatient colonoscopy but because of medical issues he was brought in. Of note when he was brought in about a week ago he had low hemoglobin and his ferritin was only 8, he received a dose of IV iron on 11/28, and a dose of IV iron on 12/05. Unfortunately, however, hemoglobin still has been low and has dropped actually. Past Medical History Cardiac Medical History: Reports: Congestive Heart Failure, Coronary Artery Disease, Myocardial Infarction, Hyperlipidema, Hypertension, Peripheral Vascular Disease Pulmonary Medical History: Reports: Chronic Obstructive Pulmonary Disease (COPD ), Pneumonia Denies: Tuberculosis Endocrine Medical History: Reports: Hyperthyroidism Psychiatric Medical History: Denies: Depression Past Surgical History Past Surgical History: Reports: Cardiac Catheterization - with stents, Coronary Artery Bypass Graft, Vascular Surgery Social History Information Source: Patient Smoking Status: Former Smoker Last Time Smoked: 2011 Frequency of Alcohol Use: Occasional Hx Recreational Drug Use: No Drugs: None Hx Prescription Drug Abuse: No Family History Family History: Reviewed & Not Pertinent Parental Family History Reviewed: Yes Children Family History Reviewed: Yes Sibling(s) Family History Reviewed.: Yes Medication/Allergy Home Medications: Albuterol Sulfate [Proair HFA Inhalation Aerosol 8.5 gm MDI] 2 puff IH Q4HP PRN 12/11/12 Morphine Sulfate [Ms-Contin Sr 100 mg Tablet] 60 mg PO Q12 12/11/12 Budesonide/Formoterol Fumarate [Symbicort HFA 160-4.5 mcg Inhaler 6 gm] 2 puff IH Q12 02/05/13 Atorvastatin Calcium [Lipitor 20 mg Tablet] 20 mg PO QHS 11/08/13 Tamsulosin HCl [Flomax 0.4 mg Cap.sr] 0.4 mg PO DAILY 11/08/13 Aspirin [Ecotrin 81 mg EC Tablet] 81 mg PO DAILY 11/29/19 Furosemide [Lasix 40 mg Tablet] 40 mg PO DAILY 11/29/19 Metoprolol Succinate [Toprol Xl 25 mg Tab.sr] 25 mg PO DAILY 11/29/19 Nitroglycerin [Nitrostat 0.4 mg (1/150 Gr) Tabs 25/Bottle] 1 tab SL Q5MP PRN 11/29/19 Omeprazole 20 mg PO DAILY 11/29/19 Tiotropium [place] [Spiriva Handihaler 5 Cap/Kit (18 Mcg/Cap)] 1 cap IH DAILY 11/29/19 Allergies/Adverse Reactions: Penicillins Allergy (Intermediate, Verified 05/11/19 10:04) Review of Systems Constitutional: ABSENT: chills, fever(s), headache(s), weight gain, weight loss Eyes: ABSENT: visual disturbances Ears: ABSENT: hearing changes Cardiovascular: ABSENT: chest pain, dyspnea on exertion, edema, orthropnea, palpitations Respiratory: ABSENT: cough, hemoptysis Gastrointestinal: ABSENT: abdominal pain, constipation, diarrhea, hematemesis, hematochezia, nausea, vomiting Genitourinary: ABSENT: dysuria, hematuria Musculoskeletal: ABSENT: joint swelling Integumentary: ABSENT: rash, wounds Neurological: ABSENT: abnormal gait, abnormal speech, confusion, dizziness, foc al weakness, syncope Psychiatric: ABSENT: anxiety, depression, homidical ideation, suicidal ideation Endocrine: ABSENT: cold intolerance, heat intolerance, polydipsia, polyuria Hematologic/Lymphatic: ABSENT: easy bleeding, easy bruising Physical Exam Vital Signs: Temp Pulse Resp BP Pulse Ox 97.5 F 87 16 111/59 L 96 12/10/19 03:36 12/10/19 07:00 12/10/19 03:36 12/10/19 03:36 12/10/19 04:34 Intake & Output 12/09/19 12/10/19 12/11/19 06:59 06:59 06:59 Intake Total 1470 2090 Output Total 2325 1600 Balance -855 490 Weight 65 kg 65 kg General appearance: PRESENT: no acute distress, well-developed, well-nourished Head exam: PRESENT: atraumatic, normocephalic Eye exam: PRESENT: conjunctiva pink, EOMI, PERRLA. ABSENT: scleral icterus Ear exam: PRESENT: normal external ear exam Mouth exam: PRESENT: moist, tongue midline Neck exam: ABSENT: carotid bruit, JVD, lymphadenopathy, thyromegaly Respiratory exam: PRESENT: clear to auscultation josselyn. ABSENT: rales, rhonchi, wheezes Cardiovascular exam: PRESENT: RRR. ABSENT: diastolic murmur, rubs, systolic murmur Pulses: PRESENT: normal dorsalis pedis pul Vascular exam: PRESENT: normal capillary refill GI/Abdominal exam: PRESENT: normal bowel sounds, soft. ABSENT: distended, guarding, mass, organolmegaly, rebound, tenderness Rectal exam: PRESENT: deferred Extremities exam: PRESENT: full ROM. ABSENT: calf tenderness, clubbing, pedal edema Neurological exam: PRESENT: alert, awake, oriented to person, oriented to place, oriented to time, oriented to situation, CN II-XII grossly intact. ABSENT: motor sensory deficit Psychiatric exam: PRESENT: appropriate affect, normal mood. ABSENT: homicidal ideation, suicidal ideation Skin exam: PRESENT: dry, intact, warm. ABSENT: cyanosis, rash Results Laboratory Results: 12/10/19 05:46 12/10/19 05:46 12/10/19 12/10/19 05:46 05:46 WBC 5.6 RBC 3.46 L Hgb 8.2 L Hct 25.2 L MCV 73 L MCH 23.7 L MCHC 32.6 RDW 20.0 H Plt Count 161 Seg Neutrophils % Not Reportable Sodium 129.9 L Potassium 4.3 Chloride 93 L Carbon Dioxide 31 H Anion Gap 6 BUN 17 Creatinine 0.72 Est GFR ( Amer) > 60 Glucose 86 Calcium 8.3 L Total Bilirubin 0.5 AST 35 Alkaline Phosphatase 63 Total Protein 6.1 L Albumin 3.3 L 11/29/19 11/29/19 11/29/19 18:14 21:16 21:16 Creatine Kinase 750 H CK-MB (CK-2) 13.70 H Troponin I < 0.012 NT-Pro-B Natriuret Pep 5020 H 11/30/19 11/30/19 11/30/19 05:13 05:13 13:02 Creatine Kinase 486 H 476 H CK-MB (CK-2) 8.94 H Troponin I 0.012 NT-Pro-B Natriuret Pep 11/30/19 12/06/19 12/08/19 13:02 11:20 05:50 Creatine Kinase CK-MB (CK-2) 11.50 H Troponin I < 0.012 NT-Pro-B Natriuret Pep 3080 H 3400 H Impressions: Chest CT 11/30/19 00:00 IMPRESSION: STABLE CHRONIC EMPHYSEMATOUS CHANGES AND CHRONIC SCARRING IN THE RIGHT LUNG BASE. NO ACUTE FINDING ON NON-CONTRASTED CHEST CT. Chest/Abdomen CTA 12/02/19 00:00 IMPRESSION: No emboli visualized in the main pulmonary arteries or the segmen xiomara branches.New multifocal patchy -nodular airspace opacities throughout the left lower lobe with more dense consolidation in the inferior-posterior segments. Similar nodular opacities in the right lower lobe. No pleural effusion. PICC Line Insertion 12/04/19 13:49 IMPRESSION: SUCCESSFUL PLACEMENT OF A 5 FR DUAL LUMEN 47 CM PICC IN THE LEFT BASILIC VEIN. Chest X-Ray 12/08/19 00:00 IMPRESSION: Mixed picture lung exam with worsening in the left lung base and improvement in the right lung base. Assessment & Plan - Diagnosis (1) Anemia Qualifiers: Anemia type: iron deficiency Iron deficiency anemia type: chronic blood loss Qualified Code(s): D50.0 - Iron deficiency anemia secondary to blood loss (chronic) Is this a current diagnosis for this admission?: Yes Plan: Most likely that this is a blood loss iron deficiency anemia, received IV iron, should have had stabilization and improvement of hemoglobin by now. Patient has been getting some fluids so there is some delusional aspect but not enough to explain why with 2 doses of iron he would not improved. Suggest GI consultation and endoscopy. He has been severely constipated for several days, I will give him stool softener and MiraLAX, and asked nursing to do stool for [facility]. - Time Time Spent: 50 to 70 Minutes
--- NOTE | 2019-12-10 08:58 | PDOC PROGRESS REPORT ---
Subjective Progress Note for:: 12/10/19 Subjective:: 11/29/19 16:50 BUTCH BAILEY MD The patient is a 69-year-old male with history of COPD, history of Present Illness: JOSE L FAROOQ is a 69 year old male with history of COPD, coronary artery disease status post CABG and multiple coronary interventions, heart failure with reduced ejection fraction, peripheral vascular disease status post aortoiliac bypass graft, smoker in remission who was admitted on 11/29/2019 with decompensated heart failure. He had been followed by my partner, Dr. Ivey. A review of Dr. Ivey's notes as well as the hospitalist service reveals that he was found to be anemic and his heart failure had been attributed to his anemia. He received iron infusion with improvement in his symptoms. He was also found to have nosocomial pneumonia and is currently treated for it. He is followed by [place] [facility]. He feels well this morning and specifically denies chest pain, shortness of breath, lower extremity edema, palpitations, syncope and presyncope. He is telemetry shows normal sinus rhythm with PACs and PVCs. His most recent chemistry is remarkable for hyponatremia with a sodium of 129, normal potassium and normal renal function. His fluid balance since admission is +4.6 L. 12/10/2019: The patient had an uneventful night except without recurrence of hypotension. He has been responding well to p.o. diuresis even though his 1500 cc fluid limit has not been enforced. He feels well from the cardiovascular standpoint this morning however had some nausea and dry heaving. His hemoglobin continues to drop and is now 8.1 reason why he has been consulted to hematology. His sodium continues to drop which is likely secondary to or the IV fluids he has been getting for his antibiotic treatment. His telemetry continues to show normal sinus rhythm with PVCs, occasional ventricular bigeminy and sinus tachycardia. Physical exam on 12/10/2019: GENERAL: Pleasant and conversational. Oriented x3 with normal mood. Looks chronically ill. Pale. Not in acute distress. Well groomed and well developed. HEENT: Normocephalic, atraumatic. Pupils equal. Sclerae anicteric. Oropharynx moist. NECK: No JVD. No carotid bruits. LUNGS: Coarse breath sounds bilaterally. Normal respiratory effort without the use of accessory muscles or intercostal retractions. CARDIOVASCULAR: Regular rate and rhythm, normal S1 and S2 without murmurs, rubs, or gallops. PMI not displaced. EXTREMITIES: No edema, no cyanosis, no clubbing. +2 pulses femoral and pedal pulses bilaterally. SKIN: No lesions or rashes. MUSCULOSKELETAL: No chest tenderness to palpation. NEUROLOGIC: Nonfocal. No gross sensory or motor deficits bilateral upper or lower extremities. Cardiac studies: Echocardiogram on 11/29/2019: -LV systolic function is mildly reduced. -EF 40 to 45%. -Mild to moderate RVE. -Mild to moderate MR, trace AI, mild TR. -Mild pulmonary hypertension. Reason For Visit: ACUTE SYSTOLIC HEART FAILURE, MICROCYTIC ANEMIA Physical Exam Vital Signs: Temp Pulse Resp BP Pulse Ox 97.5 F 109 H 16 111/59 L 96 12/10/19 03:36 12/10/19 03:36 12/10/19 03:36 12/10/19 03:36 12/10/19 04:34 Intake & Output 12/08/19 12/09/19 12/10/19 06:59 06:59 06:59 Intake Total 2760 1470 2090 Output Total 2150 2325 1150 Balance 610 -855 940 Weight 65.7 kg 65 kg 65 kg Results Laboratory Results: 12/09/19 06:15 12/09/19 06:15 12/09/19 12/09/19 06:15 06:15 WBC 5.2 RBC 3.50 L Hgb 8.1 L Hct 25.5 L MCV 73 L MCH 23.2 L MCHC 32.0 RDW 20.4 H Plt Count 164 Seg Neutrophils % Not Reportable Sodium 131.0 L Potassium 4.1 Chloride 94 L Carbon Dioxide 31 H Anion Gap 6 BUN 14 Creatinine 0.68 Est GFR ( Amer) > 60 Glucose 100 Calcium 8.3 L Total Bilirubin 0.5 AST 36 Alkaline Phosphatase 57 Total Protein 5.9 L Albumin 3.1 L 11/29/19 11/29/19 11/29/19 18:14 21:16 21:16 Creatine Kinase 750 H CK-MB (CK-2) 13.70 H Troponin I < 0.012 NT-Pro-B Natriuret Pep 5020 H 11/30/19 11/30/19 11/30/19 05:13 05:13 13:02 Creatine Kinase 486 H 476 H CK-MB (CK-2) 8.94 H Troponin I 0.012 NT-Pro-B Natriuret Pep 11/30/19 12/06/19 12/08/19 13:02 11:20 05:50 Creatine Kinase CK-MB (CK-2) 11.50 H Troponin I < 0.012 NT-Pro-B Natriuret Pep 3080 H 3400 H Impressions: Chest CT 11/30/19 00:00 IMPRESSION: STABLE CHRONIC EMPHYSEMATOUS CHANGES AND CHRONIC SCARRING IN THE RIGHT LUNG BASE. NO ACUTE FINDING ON NON-CONTRASTED CHEST CT. Chest/Abdomen CTA 12/02/19 00:00 IMPRESSION: No emboli visualized in the main pulmonary arteries or the segment al branches.New multifocal patchy -nodular airspace opacities throughout the left lower lobe with more dense consolidation in the inferior-posterior segments. Similar nodular opacities in the right lower lobe. No pleural effusion. PICC Line Insertion 12/04/19 13:49 IMPRESSION: SUCCESSFUL PLACEMENT OF A 5 FR DUAL LUMEN 47 CM PICC IN THE LEFT BASILIC VEIN. Chest X-Ray 12/08/19 00:00 IMPRESSION: Mixed picture lung exam with worsening in the left lung base and improvement in the right lung base. 12/09/19 06:15 12/09/19 06:15 MCV 73 fl (80-97) L 12/09/19 06:15 MCH 23.2 pg (27.0-33.4) L 12/09/19 06:15 MCHC 32.0 g/dL (32.0-36.0) 12/09/19 06:15 RDW 20.4 % (11.5-14.0) H 12/09/19 06:15 Seg Neutrophils % Not Reportable 12/09/19 06:15 Chloride 94 mmol/L (98-107) L 12/09/19 06:15 Carbon Dioxide 31 mmol/L (22-30) H 12/09/19 06:15 Anion Gap 6 (5-19) 12/09/19 06:15 Est GFR ( Amer) > 60 (>60) 12/09/19 06:15 Glucose 100 mg/dL (75-110) 12/09/19 06:15 Calcium 8.3 mg/dL (8.4-10.2) L 12/09/19 06:15 Magnesium 2.2 mg/dL (1.6-2.3) 11/30/19 05:13 Iron 25.6 ug/dL (49-181) L 11/29/19 18:14 TIBC 514 ug/dL (250-450) H 11/29/19 18:14 % Saturation 5 % 11/29/19 18:14 Ferritin 8.11 ng/mL (17.9-464.0) L 11/29/19 18:14 Total Bilirubin 0.5 mg/dL (0.2-1.3) 12/09/19 06:15 AST 36 U/L (17-59) 12/09/19 06:15 Alkaline Phosphatase 57 U/L (38-126) 12/09/19 06:15 Total Protein 5.9 g/dL (6.3-8.2) L 12/09/19 06:15 Albumin 3.1 g/dL (3.5-5.0) L 12/09/19 06:15 TSH 0.36 uIU/mL (0.47-4.68) L 11/29/19 18:14 TSH Cancelled 11/29/19 18:14 Free T4 1.63 ng/dL (0.78-2.19) 11/29/19 18:14 Free T3 pg/mL 3.76 pg/mL (2.77-5.27) 11/29/19 18:14 Urine Color YELLOW 12/03/19 12:28 Urine Appearance CLEAR 12/03/19 12:28 Urine pH 5.0 (5.0-9.0) 12/03/19 12:28 Ur Specific [place] 1.023 12/03/19 12:28 Urine Protein NEGATIVE mg/dL (NEGATIVE) 12/03/19 12:28 Urine Glucose (UA) NEGATIVE mg/dL (NEGATIVE) 12/03/19 12:28 Urine Ketones NEGATIVE mg/dL (NEGATIVE) 12/03/19 12:28 Urine Blood NEGATIVE (NEGATIVE) 12/03/19 12:28 Urine Nitrite NEGATIVE (NEGATIVE) 12/03/19 12:28 Ur Leukocyte Esterase NEGATIVE (NEGATIVE) 12/03/19 12:28 Urine WBC (Auto) 0 /HPF 12/03/19 12:28 Urine RBC (Auto) 1 /HPF 12/03/19 12:28 11/29/19 11/29/19 11/29/19 18:14 21:16 21:16 Creatine Kinase 750 H CK-MB (CK-2) 13.70 H Troponin I < 0.012 NT-Pro-B Natriuret Pep 5020 H 11/30/19 11/30/19 11/30/19 05:13 05:13 13:02 Creatine Kinase 486 H 476 H CK-MB (CK-2) 8.94 H Troponin I 0.012 NT-Pro-B Natriuret Pep 11/30/19 12/06/19 12/08/19 13:02 11:20 05:50 Creatine Kinase CK-MB (CK-2) 11.50 H Troponin I < 0.012 NT-Pro-B Natriuret Pep 3080 H 3400 H Current Medication List Generic Name Dose Route Start Last Admin Trade Name Freq PRN Reason Stop Dose Admin Acetaminophen 650 mg 12/03/19 00:42 12/09/19 21:48 Tylenol 325 Mg Tablet PO 01/02/20 00:41 650 mg Q4HP PRN Administration PAIN Albuterol 2 puff 11/29/19 21:18 Ventolin Hfa 8 Gm Mdi IH 12/29/19 21:17 Q4HP PRN SHORTNESS OF BREATH Albuterol/Ipratropium 3 ml 12/05/19 15:36 12/07/19 20:12 Duoneb 3 Ml Ampul NEB 01/04/20 15:35 3 ml [id number] PRN Administration SHORTNESS OF BREATH Atorvastatin Calcium 20 mg 11/29/19 22:00 12/09/19 21:47 Lipitor 20 Mg Tablet PO 12/29/19 21:59 20 mg QHS SHREYA Administration Bisacodyl 20 mg 12/04/19 18:42 12/06/19 11:04 Dulcolax 5 Mg Tablet PO 01/03/20 18:41 20 mg DAILYP PRN Administration CONSTIPATION Enoxaparin Sodium 40 mg 11/30/19 22:00 12/09/19 21:46 Lovenox Inj 40 Mg/0.4 Ml Disp.Syrin SUBCUT 12/29/19 21:59 40 mg QHS SHREYA Administration Fluticasone/Vilanterol 1 inh 11/29/19 22:00 12/09/19 10:30 Breo 200-25 Mcg Ellipta 14 Dose/Dpi IH 12/29/19 21:59 1 inhaler DAILY SHREYA Administration Furosemide 40 mg 12/08/19 18:00 12/09/19 17:21 Lasix 40 Mg Tablet PO 01/07/20 17:59 40 mg BID SHREYA Administration Heparin Sodium (Porcine) 30 unit 12/05/19 22:00 12/09/19 21:49 Heparin Flush 10 Unit/Ml 5 Ml Disp.Syrg IV 01/04/20 21:59 30 unit Q12 SHREYA Administration Heparin Sodium (Porcine) 30 unit 12/05/19 14:00 12/08/19 14:46 Heparin Flush 10 Unit/Ml 5 Ml Disp.Syrg IV 01/04/20 13:59 30 unit .AFTER EACH USE PRN Administration Ferric Carboxymaltose 750 mg/ 265 mls @ 1,060 mls/hr 11/29/19 22:00 12/06/19 23:15 Sodium Chloride IV 12/29/19 21:59 Infused Th@2200 SHREYA Infusion Linezolid 600 mg in 300 mls @ 300 mls/hr 12/03/19 10:00 12/10/19 00:23 Zyvox Rtu 600 Mg/300 Ml Premixed IV 12/10/19 09:59 Infused Q12 SHREYA Infusion Levofloxacin 750 mg 12/05/19 10:00 12/09/19 10:30 Levaquin 750 Mg Tablet PO 12/12/19 09:59 750 mg Q2D@1000 SHREYA Administration Metoprolol Succinate 25 mg 12/06/19 10:00 12/09/19 10:30 Toprol Xl 25 Mg Tab.Sr PO 01/05/20 09:59 25 mg DAILY SHREYA Administration Morphine Sulfate 60 mg 12/04/19 10:00 12/09/19 21:47 Ms-Contin Sr 30 Mg Tablet PO 12/11/19 09:59 60 mg Q12 SHREYA Administration Ondansetron HCl 8 mg 11/30/19 16:16 12/01/19 19:20 Zofran 8 Mg Tablet PO 12/30/19 16:15 8 mg Q6HP PRN Administration NAUSEA Ondansetron HCl 4 mg 12/01/19 21:39 12/04/19 10:31 Zofran Inj/Pf 4 Mg/2 Ml Sdv IV 12/31/19 21:38 4 mg Q6HP PRN Administration NAUSEA Pantoprazole Sodium 20 mg 11/30/19 06:00 12/10/19 05:[address] Tablet PO 12/30/19 05:59 20 mg Q6AM SHREYA Administration Pharmacy Profile Note 1 each 11/30/19 18:00 12/09/19 18:56 Medication Communication Order 12/30/19 17:59 Not Given 1800 SHREYA Sacubitril/Valsartan 1 tab 12/06/19 11:00 12/09/19 21:47 Entresto 24 Mg/26 Mg Tablet PO 01/05/20 10:59 1 tab Q12 SHREYA Administration Sodium Chloride 10 ml 12/05/19 22:00 12/09/19 21:49 Nacl 0.9% Inj/Pf 10 Ml Sdv IV 01/04/20 21:59 10 ml Q12 SHREYA Administration Sodium Chloride 10 ml 12/05/19 14:00 12/08/19 14:46 Nacl 0.9% Inj/Pf 10 Ml Sdv IV 01/04/20 13:59 10 ml .AFTER EACH USE PRN Administration Tamsulosin HCl 0.4 mg 11/29/19 22:00 12/09/19 17:21 Flomax 0.4 Mg Cap.Sr PO 12/29/19 21:59 0.4 mg QPM SHREYA Administration Umeclidinium [place] 1 inh 11/29/19 22:00 12/09/19 11:41 Incruse 62.5 Mcg Ellipta 7 Dose/Dpi IH 12/29/19 21:59 Not Given DAILY SHREYA Discontinued Medications Generic Name Dose Route Start Last Admin Trade Name Benjiq PRN Reason Stop Dose Admin Acetaminophen Confirm 12/03/19 00:22 12/03/19 00:49 Tylenol 325 Mg Tablet Administered 12/03/19 00:23 325 mg Dose Administration 325 mg .ROUTE .STK-MED ONE Albuterol Confirm 12/02/19 02:54 12/02/19 03:03 Ventolin Hfa 8 Gm Mdi Administered 12/02/19 02:55 Not Given Dose 60 puff IH .STK-MED ONE Enoxaparin Sodium 40 mg 11/29/19 22:00 11/29/19 22:11 Lovenox Inj 40 Mg/0.4 Ml Disp.Syrin SUBCUT 12/29/19 21:59 40 mg DAILY SHREYA Administration Enoxaparin Sodium 40 mg 11/29/19 22:15 11/30/19 00:27 Lovenox Inj 40 Mg/0.4 Ml Disp.Syrin SUBCUT 11/29/19 22:16 Not Given NOW ONE Furosemide 40 mg 12/01/19 14:45 12/02/19 09:29 Lasix 40 Mg Tablet PO 12/31/19 14:44 40 mg DAILY SHREYA Administration Furosemide 20 mg 12/06/19 10:00 12/07/19 10:48 Lasix Inj/Pf 20 Mg/2 Ml Sdv IV 01/05/20 09:59 Not Given DAILY SHREYA Furosemide 40 mg 12/07/19 10:15 12/08/19 10:02 Lasix Inj/Pf 40 Mg/4 Ml Sdv IV 01/06/20 10:14 40 mg DAILY SHREYA Administration Heparin Sodium (Porcine) Confirm 12/04/19 15:54 12/04/19 16:42 Heparin Flush 10 Unit/Ml 5 Ml Disp.Syrg Administered 12/04/19 15:55 Not Given Dose 50 unit IV .STK-MED ONE Furosemide 250 mg/ Sodium 250 mls @ 1 mls/hr 11/29/19 19:56 12/01/19 15:19 Chloride IV 12/29/19 19:55 Infused CONTINUOUS PRN Infusion THIS MED IS NOT "PRN" 1 MG/HR Sodium Chloride 1,000 mls @ 50 mls/hr 12/02/19 13:06 Nacl 0.9% 1000 Ml Iv Soln IV 01/01/20 13:05 CONTINUOUS PRN THIS MED IS NOT "PRN" Sodium Chloride 1,000 mls @ 50 mls/hr 12/02/19 16:14 Nacl 0.9% 1000 Ml Iv Soln IV 01/01/20 16:13 CONTINUOUS PRN THIS MED IS NOT "PRN" Sodium Chloride 250 mls @ 50 mls/hr 12/02/19 16:30 12/02/19 21:55 Nacl 0.9% 250 Ml Iv Soln IV 12/02/19 21:29 Infused BOLUS ONE Infusion Meropenem 1 gm/ Sodium 50 mls @ 100 mls/hr 12/02/19 18:00 Chloride IV 12/09/19 17:59 Q8 SHREYA Linezolid 600 mg in 300 mls @ 300 mls/hr 12/02/19 18:00 12/02/19 18:59 Zyvox Rtu 600 Mg/300 Ml Premixed IV 12/09/19 17:59 Not Given Q12A SHREYA Linezolid 600 mg in 300 mls @ 300 mls/hr 12/02/19 22:00 12/02/19 22:20 Zyvox Rtu 600 Mg/300 Ml Premixed IV 12/09/19 17:59 Infused Q12 SHREYA Infusion Meropenem 1 gm/ Sodium 50 mls @ 100 mls/hr 12/02/19 22:00 12/09/19 16:21 Chloride IV 12/09/19 21:59 Infused Q8 SHREYA Infusion Sodium Chloride 500 mls @ 0 mls/hr 12/02/19 19:30 12/02/19 20:16 Nacl 0.9% 500 Ml Iv Soln IV 12/02/19 19:31 Infused BOLUS ONE Infusion Linezolid Confirm 12/02/19 19:25 12/02/19 19:53 Zyvox Rtu 600 Mg/300 Ml Premixed Administered 12/02/19 19:26 Not Given Dose 600 mg in 300 mls @ ud IV .STK-MED ONE Dopamine HCl/Dextrose 800 mg in 250 mls @ 0 mls/hr 12/02/19 23:54 12/03/19 00:27 Dopamine Rtu 800 Mg-D5w 250 Ml (Adult) Premix IV 01/01/20 23:53 4.9 mls/hr CONTINUOUS PRN 4.9 mls/hr THIS MED IS NOT "PRN" Administration Protocol Titrate Lactated Ringer's 1,000 mls @ 50 mls/hr 12/03/19 20:20 12/07/19 01:45 Lactated Ringers 1000 Ml Iv Soln IV 01/02/20 20:19 Infused CONTINUOUS PRN Infusion THIS MED IS NOT "PRN" Dopamine HCl/Dextrose 800 mg in 250 mls @ 0 mls/hr 12/03/19 21:55 Dopamine Rtu 800 Mg-D5w 250 Ml (Adult) Premix IV 01/02/20 21:54 CONTINUOUS PRN THIS MED IS NOT "PRN" Protocol Titrate Dopamine HCl/Dextrose 800 mg in 250 mls @ 0 mls/hr 12/03/19 22:26 12/05/19 09:45 Dopamine Rtu 800 Mg-D5w 250 Ml (Adult) Premix IV 01/02/20 22:25 0 mls/hr CONTINUOUS PRN 0 mls/hr THIS MED IS NOT "PRN" Titration Protocol Titrate Linezolid Confirm 12/09/19 22:14 12/09/19 22:56 Zyvox Rtu 600 Mg/300 Ml Premixed Administered 12/09/19 22:15 Not Given Dose 600 mg in 300 mls @ ud IV .STK-MED ONE Levofloxacin 750 mg 12/02/19 06:00 12/03/19 09:59 Levaquin 750 Mg Tablet PO 12/09/19 05:59 750 mg DAILY SHREYA Administration Meropenem 1 gm 12/02/19 18:08 Merrem 1 Gm Vial IV 12/03/19 07:00 ASDIR PRN Meropenem Confirm 12/02/19 19:24 12/02/19 19:52 Merrem 1 Gm Vial Administered 12/02/19 19:25 Not Given Dose 1 gm .ROUTE .STK-MED ONE Meropenem Confirm 12/02/19 19:31 12/02/19 19:53 Merrem 1 Gm Vial Administered 12/02/19 19:32 Not Given Dose 1 gm .ROUTE .STK-MED ONE Metoprolol Succinate 25 mg 11/29/19 22:00 11/29/19 22:10 Toprol Xl 25 Mg Tab.Sr PO 12/29/19 21:59 25 mg DAILY SHREYA Administration Metoprolol Succinate 25 mg 11/30/19 22:00 12/01/19 22:09 Toprol Xl 25 Mg Tab.Sr PO 12/30/19 21:59 25 mg QHS SHREYA Administration Metoprolol Succinate 25 mg 11/29/19 22:30 11/30/19 00:27 Toprol Xl 25 Mg Tab.Sr PO 11/29/19 22:31 Not Given NOW ONE Metoprolol Succinate 25 mg 12/05/19 16:20 Toprol Xl 25 Mg Tab.Sr PO 01/04/20 16:19 DAILYP PRN IF SBP > 100 Morphine Sulfate 60 mg 11/29/19 22:00 12/03/19 10:00 Ms-Contin Sr 30 Mg Tablet PO 12/06/19 21:59 Not Given Q12 SHREYA Morphine Sulfate 60 mg 12/03/19 17:30 12/03/19 17:08 Ms-Contin Sr 30 Mg Tablet PO 12/03/19 17:31 60 mg NOW ONE Administration Phenol Confirm 12/09/19 22:48 12/09/19 22:56 Chloraseptic Sore Throat [place] 177 Ml Administered 12/09/19 22:49 Not Given Dose 100 spray .ROUTE .STK-MED ONE Phentolamine Mesylate 5 mg 12/03/19 10:30 12/03/19 10:45 Regitine Inj 5 Mg Vial INFIL 12/03/19 10:31 5 mg NOW ONE Administration Sacubitril/Valsartan 1 tab 11/29/19 22:00 11/30/19 17:38 Entresto 24 Mg/26 Mg Tablet PO 12/29/19 21:59 1 tab BID SHREYA Administration Sacubitril/Valsartan 1 tab 12/01/19 10:00 12/02/19 09:30 Entresto 49 Mg/51 Mg Tablet PO 12/31/19 09:59 1 tab BID SHREYA Administration 12/10/19 05:46 12/10/19 05:46 MCV 73 fl (80-97) L 12/10/19 05:46 MCH 23.7 pg (27.0-33.4) L 12/10/19 05:46 MCHC 32.6 g/dL (32.0-36.0) 12/10/19 05:46 RDW 20.0 % (11.5-14.0) H 12/10/19 05:46 Seg Neutrophils % Not Reportable 12/10/19 05:46 Chloride 93 mmol/L (98-107) L 12/10/19 05:46 Carbon Dioxide 31 mmol/L (22-30) H 12/10/19 05:46 Anion Gap 6 (5-19) 12/10/19 05:46 Est GFR ( Amer) > 60 (>60) 12/10/19 05:46 Glucose 86 mg/dL (75-110) 12/10/19 05:46 Calcium 8.3 mg/dL (8.4-10.2) L 12/10/19 05:46 Magnesium 2.2 mg/dL (1.6-2.3) 11/30/19 05:13 Iron 25.6 ug/dL (49-181) L 11/29/19 18:14 TIBC 514 ug/dL (250-450) H 11/29/19 18:14 % Saturation 5 % 11/29/19 18:14 Ferritin 8.11 ng/mL (17.9-464.0) L 11/29/19 18:14 Total Bilirubin 0.5 mg/dL (0.2-1.3) 12/10/19 05:46 AST 35 U/L (17-59) 12/10/19 05:46 Alkaline Phosphatase 63 U/L (38-126) 12/10/19 05:46 Total Protein 6.1 g/dL (6.3-8.2) L 12/10/19 05:46 Albumin 3.3 g/dL (3.5-5.0) L 12/10/19 05:46 TSH 0.36 uIU/mL (0.47-4.68) L 11/29/19 18:14 TSH Cancelled 11/29/19 18:14 Free T4 1.63 ng/dL (0.78-2.19) 11/29/19 18:14 Free T3 pg/mL 3.76 pg/mL (2.77-5.27) 11/29/19 18:14 Urine Color YELLOW 12/03/19 12:28 Urine Appearance CLEAR 12/03/19 12:28 Urine pH 5.0 (5.0-9.0) 12/03/19 12:28 Ur Specific [place] 1.023 12/03/19 12:28 Urine Protein NEGATIVE mg/dL (NEGATIVE) 12/03/19 12:28 Urine Glucose (UA) NEGATIVE mg/dL (NEGATIVE) 12/03/19 12:28 Urine Ketones NEGATIVE mg/dL (NEGATIVE) 12/03/19 12:28 Urine Blood NEGATIVE (NEGATIVE) 12/03/19 12:28 Urine Nitrite NEGATIVE (NEGATIVE) 12/03/19 12:28 Ur Leukocyte Esterase NEGATIVE (NEGATIVE) 12/03/19 12:28 Urine WBC (Auto) 0 /HPF 12/03/19 12:28 Urine RBC (Auto) 1 /HPF 12/03/19 12:28 11/29/19 11/29/19 11/29/19 18:14 21:16 21:16 Creatine Kinase 750 H CK-MB (CK-2) 13.70 H Troponin I < 0.012 NT-Pro-B Natriuret Pep 5020 H 11/30/19 11/30/19 11/30/19 05:13 05:13 13:02 Creatine Kinase 486 H 476 H CK-MB (CK-2) 8.94 H Troponin I 0.012 NT-Pro-B Natriuret Pep 11/30/19 12/06/19 12/08/19 13:02 11:20 05:50 Creatine Kinase CK-MB (CK-2) 11.50 H Troponin I < 0.012 NT-Pro-B Natriuret Pep 3080 H 3400 H Assessment & Plan - Diagnosis (1) Anemia Qualifiers: Anemia type: iron deficiency Iron deficiency anemia type: chronic blood loss Qualified Code(s): D50.0 - Iron deficiency anemia secondary to blood loss (chronic) Is this a current diagnosis for this admission?: Yes Plan: No evidence of active bleeding during this hospitalization. Unfortunately his hemoglobin continues to decrease and the patient has been now seen by hematology. Recommendations: -GI evaluation. -Further treatment per hospitalist team. (2) CAD (coronary artery disease) Qualifiers: Coronary Disease-Associated Artery/Lesion type: [place] artery [place] vs. transplanted heart: [place] heart Associated angina: without angina Qualified Code(s): I25.10 - Atherosclerotic heart disease of [place] coronary artery without angina pectoris Plan: No evidence of cardiac ischemia at this point. Recommendations: -Continue with current medical management. -Given his worsening anemia should try to keep hemoglobin above 8 g/dL given coronary artery disease and CABG. -May be reasonable to hold off on antiplatelet therapy given his worsening anemia. -Outpatient follow-up with [place] [facility]. (3) CHF (congestive heart failure), NYHA class II Qualifiers: Congestive heart failure type: systolic Congestive heart failure chronicity: acute on chronic Qualified Code(s): I50.23 - Acute on chronic systolic (congestive) heart failure Is this a current diagnosis for this admission?: Yes Plan: He had been tolerating low-dose metoprolol as well as Entresto which was started at a lower dose given his very well controlled blood pressure and occasional episode of hypotension while in the hospital. He has no symptoms of decom pensated heart failure on exam although his fluid balance continues to be positive given his IV antibiotics. He is diuresing well. Of note his worsening hyponatremia may be secondary to fluid overload. Recommendations: -Continue with current cardiovascular regimen for now and consider increasing Lasix dose as tolerated by his blood pressure. -Continue with low-sodium diet. -Continue with daily BMPs and replace electrolytes as needed. -Consider switching IV antibiotics to p.o. antibiotics if possible. -Discontinue all unnecessary IV fluids. -Cardiology does not have further recommendations therefore we will sign off for now. Please reconsult if necessary. (4) ANN (acute kidney injury) Is this a current diagnosis for this admission?: Yes Plan: Now resolved. We will continue to follow-up clinically and with labs. (5) Nosocomial pneumonia Is this a current diagnosis for this admission?: Yes Plan: Receiving antibiotics with clinical improvement. Further management per primary team.
[2019-12-10] MEDS ORDERED: POLYETHYLENE GLYCOL 3350 POWDER 17 GM/1 PACKET PO ONE (10:00)
[2019-12-10] MEDS ORDERED: DOCUSATE SODIUM 100 MG CAPSULE PO ONE (10:00)
[2019-12-10] MEDS: METOPROLOL SUCCINATE 25 MG TAB.SR.24H PO SCH (10:24)
[2019-12-10] MEDS: MORPHINE SULFATE SR 30 MG TABLET PO SCH ×2 (10:24→21:55)
[2019-12-10] MEDS: FUROSEMIDE 40 MG TABLET PO SCH ×2 (10:24→17:47)
[2019-12-10] MEDS: SACUBITRIL/VALSARTAN 24 MG/26 MG TABLET PO SCH ×2 (10:24→21:56)
[2019-12-10] MEDS: UMECLIDINIUM BROMIDE 62.5 MCG/DOSE IH SCH (10:25)
[2019-12-10] MEDS: FLUTICASONE/VILANTEROL 200-25 MCG/DOSE IH SCH (10:25)
[2019-12-10] MEDS: NORMAL SALINE 10 ML SDV (SCHEDULED) IV SCH ×2 (10:26→21:57)
[2019-12-10] MEDS: ONDANSETRON HCL 8 MG TABLET PO PRN (10:38)
[2019-12-10] MEDS: PHARMACY COMMUNICATION ORDER MC SCH (17:47)
[2019-12-10] MEDS: TAMSULOSIN HCL 0.4 MG CAP.SR.24H PO SCH (17:47)
--- NOTE | 2019-12-10 20:26 | PDOC PROGRESS REPORT ---
Subjective Progress Note for:: 12/10/19 Subjective:: Patient was admitted initially for the management of acute systolic heart failure, this was complicated with nosocomial pneumonia, she had a scheduled GI endoscopy before this admission for evaluation of iron deficiency anemia. He has had 2 doses of Injectafer 7 days apart, patient was seen by Dr. Law oncology steam distribution supervisor, I spoke to Jorge, GI physician, the plan is for patient to have GI endoscopy tomorrow before he is discharge home Reason For Visit: ACUTE SYSTOLIC HEART FAILURE, MICROCYTIC ANEMIA Physical Exam Vital Signs: Temp Pulse Resp BP Pulse Ox 97.9 F 80 16 115/62 96 12/10/19 11:43 12/10/19 16:22 12/10/19 16:22 12/10/19 11:43 12/10/19 16:22 Intake & Output 12/09/19 12/10/19 12/11/19 06:59 06:59 06:59 Intake Total 1470 2090 480 Output Total 2325 1600 900 Balance -855 490 -420 Weight 65 kg 65 kg 65 kg General appearance: PRESENT: no acute distress Eye exam: PRESENT: PERRLA Respiratory exam: PRESENT: clear to auscultation josselyn Cardiovascular exam: PRESENT: +S1, +S2 GI/Abdominal exam: PRESENT: soft Neurological exam: PRESENT: alert, CN II-XII grossly intact Results Laboratory Results: 12/10/19 05:46 12/10/19 05:46 12/10/19 12/10/19 05:46 05:46 WBC 5.6 RBC 3.46 L Hgb 8.2 L Hct 25.2 L MCV 73 L MCH 23.7 L MCHC 32.6 RDW 20.0 H Plt Count 161 Seg Neutrophils % Not Reportable Sodium 129.9 L Potassium 4.3 Chloride 93 L Carbon Dioxide 31 H Anion Gap 6 BUN 17 Creatinine 0.72 Est GFR ( Amer) > 60 Glucose 86 Calcium 8.3 L Total Bilirubin 0.5 AST 35 Alkaline Phosphatase 63 Total Protein 6.1 L Albumin 3.3 L 11/29/19 11/29/19 11/29/19 18:14 21:16 21:16 Creatine Kinase 750 H CK-MB (CK-2) 13.70 H Troponin I < 0.012 NT-Pro-B Natriuret Pep 5020 H 11/30/19 11/30/19 11/30/19 05:13 05:13 13:02 Creatine Kinase 486 H 476 H CK-MB (CK-2) 8.94 H Troponin I 0.012 NT-Pro-B Natriuret Pep 11/30/19 12/06/19 12/08/19 13:02 11:20 05:50 Creatine Kinase CK-MB (CK-2) 11.50 H Troponin I < 0.012 NT-Pro-B Natriuret Pep 3080 H 3400 H Impressions: Chest CT 11/30/19 00:00 IMPRESSION: STABLE CHRONIC EMPHYSEMATOUS CHANGES AND CHRONIC SCARRING IN THE RIGHT LUNG BASE. NO ACUTE FINDING ON NON-CONTRASTED CHEST CT. Chest/Abdomen CTA 12/02/19 00:00 IMPRESSION: No emboli visualized in the main pulmonary arteries or the segmental branches.New multifocal patchy -nodular airspace opacities throughout the left lower lobe with more dense consolidation in the inferior-posterior segments. Similar nodular opacities in the right lower lobe. No pleural effu linnea. PICC Line Insertion 12/04/19 13:49 IMPRESSION: SUCCESSFUL PLACEMENT OF A 5 FR DUAL LUMEN 47 CM PICC IN THE LEFT BASILIC VEIN. Chest X-Ray 12/08/19 00:00 IMPRESSION: Mixed picture lung exam with worsening in the left lung base and im provement in the right lung base. Assessment & Plan - Diagnosis (1) Acute systolic heart failure Is this a current diagnosis for this admission?: Yes Plan: Stable (2) Iron deficiency anemia Qualifiers: Iron deficiency anemia type: chronic blood loss Qualified Code(s): D50.0 - Iron deficiency anemia secondary to blood loss (chronic) Is this a current diagnosis for this admission?: Yes Plan: Patient scheduled for GI endoscopy (3) COPD (chronic obstructive pulmonary disease) Qualifiers: COPD type: unspecified COPD Qualified Code(s): J44.9 - Chronic obstructive pulmonary disease, unspecified Is this a current diagnosis for this admission?: Yes Plan: Stable (4) CAD (coronary artery disease) Qualifiers: Coronary Disease-Associated Artery/Lesion type: [place] artery [place] vs. transplanted heart: [place] heart Associated angina: without angina Qualified Code(s): I25.10 - Atherosclerotic heart disease of [place] coronary artery without angina pectoris Is this a current diagnosis for this admission?: Yes Plan: Stable (5) Nosocomial pneumonia Is this a current diagnosis for this admission?: Yes Plan: Continue antibiotic (6) Hypotension Qualifiers: Hypotension type: idiopathic hypotension Qualified Code(s): I95.0 - Idiopathic hypotension Is this a current diagnosis for this admission?: Yes Plan: Resolved (7) ANN (acute kidney injury) Is this a current diagnosis for this admission?: Yes Plan: Resolved (8) Chronic pain syndrome Is this a current diagnosis for this admission?: Yes - Time Time Spent with patient: 35 or more minutes Level of Care: IMCU Medications reviewed and adjusted accordingly: Yes Anticipated discharge: Home Within: within 48 hours
[2019-12-10] MEDS ORDERED: BISACODYL 5 MG TABEC PO ONE (21:00)
[2019-12-10] MEDS: ATORVASTATIN CALCIUM 20 MG TABLET PO SCH (21:55)
[2019-12-10] MEDS: ENOXAPARIN SODIUM INJ 40 MG/0.4 ML DISP.SYRIN SUBCUT SCH (21:56)
[2019-12-11] MEDS: PANTOPRAZOLE SODIUM 20 MG TABLET.DR PO SCH (05:13)
[2019-12-11 06:02] LABS: ANION GAP 6 (5-19); BLOOD UREA NITROGEN 18 mg/dL (7-20); CALCIUM 8.3 mg/dL (8.4-10.2); CARBON DIOXIDE 32 mmol/L (22-30); CHLORIDE 93 mmol/L (98-107); GLUCOSE 85 mg/dL (75-110); POTASSIUM 4.3 mmol/L (3.6-5.0)
[2019-12-11] MEDS ORDERED: BISACODYL 5 MG TABEC PO ONE ×2 (08:00)
[2019-12-11] MEDS ORDERED: MAGNESIUM CITRATE 296 ML BOTTLE PO ONE ×2 (09:00)
[2019-12-11] MEDS: SACUBITRIL/VALSARTAN 24 MG/26 MG TABLET PO SCH ×2 (09:25→21:41)
[2019-12-11] MEDS: LEVOFLOXACIN 750 MG TABLET PO SCH (09:25)
[2019-12-11] MEDS: FUROSEMIDE 40 MG TABLET PO SCH ×2 (09:25→17:06)
[2019-12-11] MEDS: METOPROLOL SUCCINATE 25 MG TAB.SR.24H PO SCH (09:25)
[2019-12-11] MEDS: NORMAL SALINE 10 ML SDV (SCHEDULED) IV SCH ×2 (09:26→21:42)
[2019-12-11] MEDS: FLUTICASONE/VILANTEROL 200-25 MCG/DOSE IH SCH (09:26)
[2019-12-11] MEDS: UMECLIDINIUM BROMIDE 62.5 MCG/DOSE IH SCH (09:28)
[2019-12-11] MEDS ORDERED: ONDANSETRON HCL INJ/PF 4 MG/2 ML SDV IV ONE (09:45)
[2019-12-11 11:37] LABS: ALBUMIN 3.7 g/dL (3.5-5.0); ALKALINE PHOSPHATASE 81 U/L (38-126); ANION GAP 6 (5-19); ASPARTATE AMINO TRANSFERASE 43 U/L (17-59); BILIRUBIN,DIRECT 0.1 mg/dL (0.0-0.4); BILIRUBIN,TOTAL 0.8 mg/dL (0.2-1.3); BLOOD UREA NITROGEN 18 mg/dL (7-20); CALCIUM 8.6 mg/dL (8.4-10.2); CARBON DIOXIDE 32 mmol/L (22-30); CHLORIDE 93 mmol/L (98-107); GLUCOSE 97 mg/dL (75-110); POTASSIUM 4.1 mmol/L (3.6-5.0); TOTAL PROTEIN 6.7 g/dL (6.3-8.2)
[2019-12-11] MEDS ORDERED: PROPOFOL INJ 200 MG/20 ML VIAL IV ONE (16:34)
[2019-12-11] MEDS ORDERED: ONDANSETRON HCL INJ/PF 4 MG/2 ML SDV ONE (16:39)
[2019-12-11] MEDS ORDERED: NALOXONE HCL INJ/PF 0.4 MG/1 ML SDV ONE (16:39)
[2019-12-11] MEDS ORDERED: FLUMAZENIL INJ 0.5 MG/5 ML VIAL ONE (16:39)
[2019-12-11] MEDS ORDERED: FENTANYL CITRATE INJ/PF 100 MCG/2 ML AMPUL ONE (16:39)
[2019-12-11] MEDS ORDERED: DIPHENHYDRAMINE HCL 50 MG/ML VIAL ONE (16:39)
[2019-12-11] MEDS ORDERED: GLUCAGON,HUMAN RECOMB 1 MG INJ ONE (16:40)
[2019-12-11] MEDS ORDERED: EPINEPHRINE INJ 1 MG/10 ML DISP.SYRIN ONE (16:40)
[2019-12-11] MEDS: TAMSULOSIN HCL 0.4 MG CAP.SR.24H PO SCH (17:06)
[2019-12-11] MEDS: PHARMACY COMMUNICATION ORDER MC SCH (17:06)
[2019-12-11] MEDS: MIDAZOLAM 2 MG/2 ML INJ ONE ×2 (18:06→18:10)
--- NOTE | 2019-12-11 18:36 | PDOC CONSULTATION ---
Consultation Consult Date: 12/10/19 Provider Consulted: IVY GILLIAM History of Present Illness Admission Date/PCP: 11/29/19 16:50 BUTCH BAILEY MD History of Present Illness: JOSE L FAROOQ is a 69 year old male Patient was admitted on 11/29/2019 with CHF. Consultation was requested for chronic anemia. He has a chronic history of iron deficiency anemia and had been scheduled for an EGD and colonoscopy as outpatient. He has received [address] Law. There is no rectal bleeding or black stools. He denies abdominal pain. His admission hemoglobin was 8.8 with microcytosis and a ferritin of 8. In the hospital his hemoglobin has fluctuated between 8.1 and 9.4. No obvious bleeding has been se en in the hospital. He has a history of rectal cancer Past Medical History Cardiac Medical History: Reports: Congestive Heart Failure, Coronary Artery Disease, Myocardial Infarction, Hyperlipidema, Hypertension, Peripheral Vascular Disease Pulmonary Medical History: Reports: Chronic Obstructive Pulmonary Disease (COPD), Pneumonia Denies: Tuberculosis Neurological Medical History: Denies: Seizures Endocrine Medical History: Reports: Hyperthyroidism Psychiatric Medical History: Denies: Depression Past Surgical History Past Surgical History: Reports: Cardiac Catheterization - with stents, Coronary Artery Bypass Graft, Vascular Surgery Social History Smoking Status: Former Smoker Last Time Smoked: 2011 Frequency of Alcohol Use: Occasional Hx Recreational Drug Use: No Drugs: None Hx Prescription Drug Abuse: No - Advance Directive Resuscitation Status: Full Code Family History Family History: Reviewed & Not Pertinent Parental Family History Reviewed: No Children Family History Reviewed: NA Sibling(s) Family History Reviewed.: NA Medication/Allergy Home Medications: Albuterol Sulfate [Proair HFA Inhalation Aerosol 8.5 gm MDI] 2 puff IH Q4HP PRN 12/11/12 Morphine Sulfate [Ms-Contin Sr 100 mg Tablet] 60 mg PO Q12 12/11/12 Budesonide/Formoterol Fumarate [Symbicort HFA 160-4.5 mcg Inhaler 6 gm] 2 puff IH Q12 02/05/13 Atorvastatin Calcium [Lipitor 20 mg Tablet] 20 mg PO QHS 11/08/13 Tamsulosin HCl [Flomax 0.4 mg Cap.sr] 0.4 mg PO DAILY 11/08/13 Aspirin [Ecotrin 81 mg EC Tablet] 81 mg PO DAILY 11/29/19 Furosemide [Lasix 40 mg Tablet] 40 mg PO DAILY 11/29/19 Metoprolol Succinate [Toprol Xl 25 mg Tab.sr] 25 mg PO DAILY 11/29/19 Nitroglycerin [Nitrostat 0.4 mg (1/150 Gr) Tabs 25/Bottle] 1 tab SL Q5MP PRN 11/29/19 Omeprazole 20 mg PO DAILY 11/29/19 Tiotropium [place] [Spiriva Hand[place]er 5 Cap/Kit (18 Mcg/Cap)] 1 cap IH DAILY 0 11/29/19 Allergies/Adverse Reactions: Penicillins Allergy (Intermediate, Verified 05/11/19 10:04) Review of Systems All systems: reviewed and no additional remarkable complaints except as stated Physical Exam Vital Signs: Temp Pulse Resp BP Pulse Ox 97.9 F 75 14 131/60 H 91 L 12/11/19 12:33 12/11/19 18:15 12/11/19 18:15 12/11/19 18:15 12/11/19 18:15 Intake & Output 12/10/19 12/11/19 12/12/19 06:59 06:59 06:59 Intake Total 2090 480 Output Total 1600 1475 Balance 490 -995 Weight 65 kg 65.5 kg Exam: General: Patient is alert and looks well. HEENT: There is pallor but no jaundice. PERRLA. Oropharynx normal Respiratory: No chest deformity. No respiratory distress. Chest wall pa lpitation was unremarkable. Breath sounds were normal Cardiovascular: Heart sounds 1 and 2 normal with no murmurs. Abdominal: Not distended. Soft and nontender. Liver and spleen not palpable. No ascites demonstrated. Bowel sounds active. Rectal examination was deferred. Extremities: No edema Neurological: Alert and oriented x4. Grossly nonfocal. Normal speech Skin: No significant rash Psychological: Normal affect Results Laboratory Results: 12/10/19 05:46 12/11/19 11:00 12/11/19 12/11/19 05:15 11:00 Sodium 131.2 L 130.6 L Potassium 4.3 4.1 Chloride 93 L 93 L Carbon Dioxide 32 H 32 H Anion Gap 6 6 BUN 18 18 Creatinine 0.70 0.71 Est GFR ( Amer) > 60 > 60 Glucose 85 97 Calcium 8.3 L 8.6 Total Bilirubin 0.8 AST 43 Alkaline Phosphatase 81 Total Protein 6.7 Albumin 3.7 11/29/19 11/29/19 11/29/19 18:14 21:16 21:16 Creatine Kinase 750 H CK-MB (CK-2) 13.70 H Troponin I < 0.012 NT-Pro-B Natriuret Pep 5020 H 11/30/19 11/30/19 11/30/19 05:13 05:13 13:02 Creatine Kinase 486 H 476 H CK-MB (CK-2) 8.94 H Troponin I 0.012 NT-Pro-B Natriuret Pep 11/30/19 12/06/19 12/08/19 13:02 11:20 05:50 Creatine Kinase CK-MB (CK-2) 11.50 H Troponin I < 0.012 NT-Pro-B Natriuret Pep 3080 H 3400 H Impressions: Chest CT 11/30/19 00:00 IMPRESSION: STABLE CHRONIC EMPHYSEMATOUS CHANGES AND CHRONIC SCARRING IN THE RIGHT LUNG BASE. NO ACUTE FINDING ON NON-CONTRASTED CHEST CT. Chest/Abdomen CTA 12/02/19 00:00 IMPRESSION: No emboli visualized in the main pulmonary arteries or the segmental branches.New multifocal patchy -nodular airspace opacities throughout the left lower lobe with more dense consolidation in the inferior-posterior segments. Similar nodular opacities in the right lower lobe. No pleural effusi on. PICC Line Insertion 12/04/19 13:49 IMPRESSION: SUCCESSFUL PLACEMENT OF A 5 FR DUAL LUMEN 47 CM PICC IN THE LEFT BASILIC VEIN. Chest X-Ray 12/08/19 00:00 IMPRESSION: Mixed picture lung exam with worsening in the left lung base and improvement in the right lung base. Assessment & Plan - Diagnosis (1) Iron deficiency anemia Qualifiers: Iron deficiency anemia type: chronic blood loss Qualified Code(s): D50.0 - Iron deficiency anemia secondary to blood loss (chronic) Is this a current diagnosis for this admission?: Yes Plan: The etiology for his iron deficiency anemia is unclear. He will undergo an EGD and colonoscopy for further evaluation. He will likely need a video capsule endoscopy if his EGD and colonoscopy are unremarkable. He will continue follow ing up with his dietitian assistant for iron infusions. (2) CHF (congestive heart failure), NYHA class II Qualifiers: Congestive heart failure type: systolic Congestive heart failure chronicity: acute on chronic Qualified Code(s): I50.23 - Acute on chronic systolic (congestive) heart failure Is this a current diagnosis for this admission?: Yes
--- NOTE | 2019-12-11 18:38 | Operative Report ---
Operative Report DATE OF SURGERY: 12/11/19 Operative Report: Pre-op diagnosis: Iron deficiency anemia Post-op diagnosis: 1. Antral gastritis 2. Limited view of the colon Surgery: Upper endoscopy with biopsy and Colonoscopy up to transverse colon Medications: Versed 2mg, Fentanyl 50 Mcg IV push Tissue removed: Antral Procedure: After informed consent obtained from patient, patient's pharynx was sprayed with [place] and conscious sedation was achieved. The upper endoscope was then inserted into the esophagus under direct vision and advanced into the stomach and further into the duodenum. Detailed examination of the duodenum, stomach and the esophagus was then performed. A digital rectal examination was performed and this was unremarkable. The colonoscope was inserted into the rectum and advanced to the mid transverse colon. I did not advance further due to large amount of stool. Patient alexa ated the procedure well. Findings Esophagus: Normal Stomach: Mild to moderate erythema in the gastric antrum. Biopsy was taken. Duodenum: Normal Transverse colon: Limited view Descending colon: Limited view Sigmoid colon: Limited view Rectum: Limited view Plan: Increase pantoprazole to 40 mg daily for the next 8 weeks. Repeat colonoscopy as outpatient OPERATION: .
--- NOTE | 2019-12-11 19:45 | PDOC PROGRESS REPORT ---
Subjective Progress Note for:: 12/11/19 Subjective:: Patient had EGD on colonoscopy today, EGD was normal, the Colonoscopy was a poor study due to poor prep Reason For Visit: ACUTE SYSTOLIC HEART FAILURE, MICROCYTIC ANEMIA Physical Exam Vital Signs: Temp Pulse Resp BP Pulse Ox 97.9 F 83 10 L 120/44 L 95 12/11/19 12:33 12/11/19 19:00 12/11/19 18:40 12/11/19 18:40 12/11/19 18:40 Intake & Output 12/10/19 12/11/19 12/12/19 06:59 06:59 06:59 Intake Total 2090 480 0 Output Total 1600 1475 Balance 490 -995 0 Weight 65 kg 65.5 kg General appearance: PRESENT: no acute distress Eye exam: PRESENT: PERRLA Respiratory exam: PRESENT: clear to auscultation josselyn Cardiovascular exam: PRESENT: +S1, +S2 GI/Abdominal exam: PRESENT: soft Neurological exam: PRESENT: alert Results Laboratory Results: 12/10/19 05:46 12/11/19 11:00 12/11/19 12/11/19 05:15 11:00 Sodium 131.2 L 130.6 L Potassium 4.3 4.1 Chloride 93 L 93 L Carbon Dioxide 32 H 32 H Anion Gap 6 6 BUN 18 18 Creatinine 0.70 0.71 Est GFR ( Amer) > 60 > 60 Glucose 85 97 Calcium 8.3 L 8.6 Total Bilirubin 0.8 AST 43 Alkaline Phosphatase 81 Total Protein 6.7 Albumin 3.7 11/29/19 11/29/19 11/29/19 18:14 21:16 21:16 Creatine Kinase 750 H CK-MB (CK-2) 13.70 H Troponin I < 0.012 NT-Pro-B Natriuret Pep 5020 H 11/30/19 11/30/19 11/30/19 05:13 05:13 13:02 Creatine Kinase 486 H 476 H CK-MB (CK-2) 8.94 H Troponin I 0.012 NT-Pro-B Natriuret Pep 11/30/19 12/06/19 12/08/19 13:02 11:20 05:50 Creatine Kinase CK-MB (CK-2) 11.50 H Troponin I < 0.012 NT-Pro-B Natriuret Pep 3080 H 3400 H Impressions: Chest CT 11/30/19 00:00 IMPRESSION: STABLE CHRONIC EMPHYSEMATOUS CHANGES AND CHRONIC SCARRING IN THE RIGHT LUNG BASE. NO ACUTE FINDING ON NON-CONTRASTED CHEST CT. Chest/Abdomen CTA 12/02/19 00:00 IMPRESSION: No emboli visualized in the main pulmonary arteries or the segmental branches.New multifocal patchy -nodular airspace opacities throughout the left lower lobe with more dense consolidation in the inferior-posterior segments. Similar nodular opacities in the right lower lobe. No pleural effusion. PICC Line Insertion 12/04/19 13:49 IMPRESSION: SUCCESSFUL PLACEMENT OF A 5 FR DUAL LUMEN 47 CM PICC IN THE LEFT BASILIC VEIN. Chest X-Ray 12/08/19 00:00 IMPRESSION: Mixed picture lung exam with worsening in the left lung base and improvement in the right lung base. Assessment & Plan - Diagnosis (1) Acute systolic heart failure Is this a current diagnosis for this admission?: Yes Plan: Stable (2) Iron deficiency anemia Qualifiers: Iron deficiency anemia type: chronic blood loss Qualified Code(s): D50.0 - Iron deficiency anemia secondary to blood loss (chronic) Is this a current diagnosis for this admission?: Yes (3) COPD (chronic obstructive pulmonary disease) Qualifiers: COPD type: unspecified COPD Qualified Code(s): J44.9 - Chronic obstructive pulmonary disease, unspecified Is this a current diagnosis for this admission?: Yes (4) CAD (coronary artery disease) Qualifiers: Coronary Disease-Associated Artery/Lesion type: [place] artery [place] vs. transplanted heart: [place] heart Associated angina: without angina Qualified Code(s): I25.10 - Atherosclerotic heart disease of [place] coronary artery without angina pectoris Is this a current diagnosis for this admission?: Yes (5) Nosocomial pneumonia Is this a current diagnosis for this admission?: Yes (6) Hypotension Qualifiers: Hypotension type: idiopathic hypotension Qualified Code(s): I95.0 - Idiopathic hypotension Is this a current diagnosis for this admission?: Yes (7) ANN (acute kidney injury) Is this a current diagnosis for this admission?: Yes (8) Chronic pain syndrome Is this a current diagnosis for this admission?: Yes - Time Time Spent with patient: 15-24 minutes Level of Care: ICU
[2019-12-11] MEDS: ATORVASTATIN CALCIUM 20 MG TABLET PO SCH (21:41)
[2019-12-11] MEDS: ENOXAPARIN SODIUM INJ 40 MG/0.4 ML DISP.SYRIN SUBCUT SCH (21:41)
[2019-12-12] MEDS: ACETAMINOPHEN 325 MG TABLET PO PRN (05:04)
[2019-12-12] MEDS: PANTOPRAZOLE SODIUM 20 MG TABLET.DR PO SCH (05:04)
[2019-12-12 06:20] LABS: ALBUMIN 3.6 g/dL (3.5-5.0); ALKALINE PHOSPHATASE 82 U/L (38-126); ANION GAP 6 (5-19); ASPARTATE AMINO TRANSFERASE 51 U/L (17-59); BILIRUBIN,TOTAL 0.5 mg/dL (0.2-1.3); BLOOD UREA NITROGEN 20 mg/dL (7-20); CALCIUM 8.6 mg/dL (8.4-10.2); CARBON DIOXIDE 32 mmol/L (22-30); CHLORIDE 95 mmol/L (98-107); GLUCOSE 109 mg/dL (75-110); POTASSIUM 4.3 mmol/L (3.6-5.0); TOTAL PROTEIN 6.5 g/dL (6.3-8.2)
[2019-12-12] MEDS: UMECLIDINIUM BROMIDE 62.5 MCG/DOSE IH SCH (09:04)
[2019-12-12] MEDS: METOPROLOL SUCCINATE 25 MG TAB.SR.24H PO SCH (09:07)
[2019-12-12] MEDS: SACUBITRIL/VALSARTAN 24 MG/26 MG TABLET PO SCH (09:07)
[2019-12-12] MEDS: FLUTICASONE/VILANTEROL 200-25 MCG/DOSE IH SCH (09:07)
[2019-12-12] MEDS: FUROSEMIDE 40 MG TABLET PO SCH (09:07)
[2019-12-12] MEDS: NORMAL SALINE 10 ML SDV (SCHEDULED) IV SCH (09:08)
[2019-12-12 15:35] VITALS: BP 136/78
--- NOTE | 2019-12-12 16:22 | PDOC DISCHARGE SUMMARY ---
Impression - Admit/DC Date/PCP Admission Date/Primary Care Provider: 11/29/19 16:50 BUTCH BAILEY MD Discharge Date: 12/12/19 - Discharge Diagnosis (1) Acute systolic heart failure Is this a current diagnosis for this admission?: Yes (2) Iron deficiency anemia Is this a current diagnosis for this admission?: Yes (3) COPD (chronic obstructive pulmonary disease) Is this a current diagnosis for this admission?: Yes (4) CAD (coronary artery disease) Is this a current diagnosis for this admission?: Yes (5) Nosocomial pneumonia Is this a current diagnosis for this admission?: Yes (6) Hypotension Is this a current diagnosis for this admission?: Yes (7) ANN (acute kidney injury) Is this a current diagnosis for this admission?: Yes (8) Chronic pain syndrome Is this a current diagnosis for this admission?: Yes - Additional Information Resuscitation Status: Full Code Discharge Diet: Cardiac Discharge Activity: Activity As Tolerated, Balance Activity w/Rest, Weigh Daily Referrals: BUTCH BAILEY MD [Primary Care Provider] - 12/19/19 10:00 am JOSEFINA MACK MD [ACTIVE PROVISIONAL STAFF] - 12/14/19 10:30 am (Please make sure to have picture ID, insurance card, and all medications. ) Prescriptions: Sacubitril/Valsartan [Entresto 24 mg/26 mg Tablet] 1 tab PO Q12 #60 tablet Furosemide [Lasix 40 mg Tablet] 40 mg PO DAILY #30 tablet Home Medications: Albuterol Sulfate [Proair HFA Inhalation Aerosol 8.5 gm MDI] 2 puff IH Q4HP PRN 12/11/12 Morphine Sulfate [Ms-Contin Sr 100 mg Tablet] 60 mg PO Q12 12/11/12 Budesonide/Formoterol Fumarate [Symbicort HFA 160-4.5 mcg Inhaler 6 gm] 2 puff IH Q12 02/05/13 Atorvastatin Calcium [Lipitor 20 mg Tablet] 20 mg PO QHS 11/08/13 Tamsulosin HCl [Flomax 0.4 mg Cap.sr] 0.4 mg PO DAILY 11/08/13 Aspirin [Ecotrin 81 mg EC Tablet] 81 mg PO DAILY 11/29/19 Furosemide [Lasix 40 mg Tablet] 40 mg PO DAILY 11/29/19 Metoprolol Succinate [Toprol Xl 25 mg Tab.sr] 25 mg PO DAILY 11/29/19 Nitroglycerin [Nitrostat 0.4 mg (1/150 Gr) Tabs 25/Bottle] 1 tab SL Q5MP PRN 11/29/19 Omeprazole 20 mg PO DAILY 11/29/19 Tiotropium [place] [Spiriva Handihaler 5 Cap/Kit (18 Mcg/Cap)] 1 cap IH DAILY 11/29/19 Furosemide [Lasix 40 mg Tablet] 40 mg PO DAILY #30 tablet 12/12/19 Sacubitril/Valsartan [Entresto 24 mg/26 mg Tablet] 1 tab PO Q12 #60 tablet 12/12/19 History of Present Illiness History of Present Illness: JOSE L FAROOQ is a 69 year old male.Patient was admitted directly for the management of acute systolic heart failure. I had telehealth video-audio encounter with the patient, he complained of increased shortness of breath and increased lower extremity swelling. I advised the patient to have serum B type natruretic peptide assayed, this was elevated consistent with CHF, he was also found to have iron deficiency anemia. He has a history of rectal cancer that was treated surgically, is scheduled to have GI endoscopy next week but because of the acute systolic heart failure he is admitted for management.Transthoracic echocardiogram was done, the left ventricular systolic function is mildly reduced the estimated ejection fraction about 40%, the right ventricle is moderately dilated, there is mild to moderate amount of mitral Regurgitation there is no aortic valve stenosis there is a trace amount of aortic regurgitation there is mild pulmonary hypertension Hospital Course Hospital Course: Patient was admitted for the management of acute systolic heart failure, acute kidney injury, nosocomial pneumonia, iron deficiency anemia, hypotension. Acute systolic heart failure Patient was admitted initially for the management of acute systolic heart failure, a transthoracic echocardiogram was done, EF about 40%, he was seen in consultation by cardiology, he was treated with furosemide infusion, Entresto beta-carlos manuel with metoprolol Nosocomial pneumonia Hospital course was complicated with hospital-acquired pneumonia, he was treated with antibiotic to cover MRSA, gram-negative, gram-positive bacteria linezolid was chosen because it is less nephrotoxic compared to vancomycin, patient was treated with furosemide infusion and also because he has acute systolic heart failure with the potential for cardiorenal syndrome. He also was treated with Levaquin linezolid and cefepime Iron deficiency anemia He has iron deficiency anemia, he received 2 doses of Injectafer 7 days apart the hemoglobin was not low enough for blood transfusion, he was seen by GI he underwent EGD and colonoscopy. The EGD was normal the colonoscopy was a poor study because of poor prep of the colon he has too much feces in the colon and colon mucosa was not well visualized Acute kidney injury He has acute kidney injury in the setting of low blood pressure ,pneumonia this was felt to be due to hemodynamic fluctuation,pre-renal azotemia HYPOTENSION He has low blood pressure due to combination of factors Physical Exam Vital Signs: Temp Pulse Resp BP Pulse Ox 98.0 F 67 16 96/59 L 100 12/12/19 13:53 12/12/19 13:53 12/12/19 13:53 12/12/19 13:53 12/12/19 13:53 Intake & Output 12/11/19 12/12/19 12/13/19 06:59 06:59 06:59 Intake Total 480 1335 731 Output Total 1475 1180 300 Balance -995 155 431 Weight 65.5 kg 65.3 kg General appearance: PRESENT: no acute distress Eye exam: PRESENT: PERRLA Respiratory exam: PRESENT: clear to auscultation josselyn Cardiovascular exam: PRESENT: +S1, +S2 GI/Abdominal exam: PRESENT: soft Neurological exam: PRESENT: alert, CN II-XII grossly intact Results Laboratory Results: WBC 5.6 10^3/uL (4.0-10.5) 12/10/19 05:46 RBC 3.46 10^6/uL (4.35-5.55) L 12/10/19 05:46 Hgb 8.2 g/dL (13.5-17.0) L 12/10/19 05:46 Hct 25.2 % (37.9-51.0) L 12/10/19 05:46 MCV 73 fl (80-97) L 12/10/19 05:46 MCH 23.7 pg (27.0-33.4) L 12/10/19 05:46 MCHC 32.6 g/dL (32.0-36.0) 12/10/19 05:46 RDW 20.0 % (11.5-14.0) H 12/10/19 05:46 Plt Count 161 10^3/uL (150-450) 12/10/19 05:46 Lymph % (Auto) Not Reportable 12/10/19 05:46 Towns % (Auto) Not Reportable 12/10/19 05:46 Eos % (Auto) Not Reportable 12/10/19 05:46 Baso % (Auto) Not Reportable 12/10/19 05:46 Absolute Neuts (auto) Not Reportable 12/10/19 05:46 Absolute Lymphs (auto) Not Reportable 12/10/19 05:46 Absolute Monos (auto) Not Reportable 12/10/19 05:46 Absolute Eos (auto) Not Reportable 12/10/19 05:46 Absolute Basos (auto) Not Reportable 12/10/19 05:46 Total Counted 100 12/10/19 05:46 Seg Neutrophils % Not Reportable 12/10/19 05:46 Seg Neuts % (Manual) 70 % (42-78) 12/10/19 05:46 Band Neutrophils % 1 % (3-5) L 12/09/19 06:15 Lymphocytes % (Manual) 22 % (13-45) 12/10/19 05:46 Atypical Lymphs % 2 % (0) 11/29/19 18:14 Monocytes % (Manual) 8 % (3-13) 12/10/19 05:46 Eosinophils % (Manual) 0 % (0-6) 12/10/19 05:46 Basophils % (Manual) 0 % (0-2) 12/10/19 05:46 Abs Neuts (Manual) 3.9 10^3/uL (1.7-8.2) 12/10/19 05:46 Abs Lymphs (Manual) 1.2 10^3/uL (0.5-4.7) 12/10/19 05:46 Abs Monocytes (Manual) 0.4 10^3/uL (0.1-1.4) 12/10/19 05:46 Absolute Eos (Manual) 0.0 10^3/uL (0.0-0.6) 12/10/19 05:46 Abs Basophils (Manual) 0.0 10^3/uL (0.0-0.2) 12/10/19 05:46 Toxic Granulation 1+ 12/02/19 00:20 Platelet Comment ADEQUATE 12/10/19 05:46 Polychromasia 1+ 12/10/19 05:46 Hypochromasia SLIGHT 12/10/19 05:46 Poikilocytosis 1+ 12/10/19 05:46 Basophilic Stippling PRESENT 12/03/19 05:33 Anisocytosis 2+ 12/10/19 05:46 Microcytosis 1+ 12/10/19 05:46 Target Cells SLIGHT 12/03/19 05:33 Tear Drop Cells SLIGHT 12/04/19 09:23 Ovalocytes SLIGHT 12/10/19 05:46 [place] Cells 1+ 12/10/19 05:46 Acanthocytes (Spur) SLIGHT 12/10/19 05:46 D-Dimer 2.01 ug/mL (0.00-0.50) H 12/02/19 13:53 Sodium 133.0 mmol/L (137-145) L 12/12/19 05:10 Potassium 4.3 mmol/L (3.6-5.0) 12/12/19 05:10 Chloride 95 mmol/L (98-107) L 12/12/19 05:10 Carbon Dioxide 32 mmol/L (22-30) H 12/12/19 05:10 Anion Gap 6 (5-19) 12/12/19 05:10 BUN 20 mg/dL (7-20) 12/12/19 05:10 Creatinine 0.75 mg/dL (0.52-1.25) 12/12/19 05:10 Est GFR ( Amer) > 60 (>60) 12/12/19 05:10 Est GFR (MDRD) Non-Af > 60 (>60) 12/12/19 05:10 Glucose 109 mg/dL (75-110) 12/12/19 05:10 POC Glucose 119 mg/dL (70-110) H 12/03/19 21:25 Calcium 8.6 mg/dL (8.4-10.2) 12/12/19 05:10 Magnesium 2.2 mg/dL (1.6-2.3) 11/30/19 05:13 Iron 25.6 ug/dL (49-181) L 11/29/19 18:14 TIBC 514 ug/dL (250-450) H 11/29/19 18:14 % Saturation 5 % 11/29/19 18:14 Ferritin 8.11 ng/mL (17.9-464.0) L 11/29/19 18:14 Total Bilirubin 0.5 mg/dL (0.2-1.3) 12/12/19 05:10 Direct Bilirubin 0.0 mg/dL (0.0-0.4) 12/12/19 05:10 Neonat Total Bilirubin Not Reportable 12/12/19 05:10 Neonat Direct Bilirubin Not Reportable 12/12/19 05:10 Neonat Indirect Bili Not Reportable 12/12/19 05:10 AST 51 U/L (17-59) 12/12/19 05:10 ALT 42 U/L (<50) 12/12/19 05:10 Alkaline Phosphatase 82 U/L (38-126) 12/12/19 05:10 Creatine Kinase 476 U/L (55-170) H 11/30/19 13:02 CK-MB (CK-2) 11.50 ng/mL (<4.55) H 11/30/19 13:02 Troponin I < 0.012 ng/mL 11/30/19 13:02 NT-Pro-B Natriuret Pep 3400 pg/mL (<125) H 12/08/19 05:50 Total Protein 6.5 g/dL (6.3-8.2) 12/12/19 05:10 Albumin 3.6 g/dL (3.5-5.0) 12/12/19 05:10 Carcinoembryonic Ag 4.30 ng/mL (<3.0) H 11/29/19 18:14 Procalcitonin 0.05 ng/mL (0.00-0.08) 11/29/19 18:14 TSH 0.36 uIU/mL (0.47-4.68) L 11/29/19 18:14 TSH Cancelled 11/29/19 18:14 Free T4 1.63 ng/dL (0.78-2.19) 11/29/19 18:14 Free T3 pg/mL 3.76 pg/mL (2.77-5.27) 11/29/19 18:14 Urine Color YELLOW 12/03/19 12:28 Urine Appearance CLEAR 12/03/19 12:28 Urine pH 5.0 (5.0-9.0) 12/03/19 12:28 Ur Specific [place] 1.023 12/03/19 12:28 Urine Protein NEGATIVE mg/dL (NEGATIVE) 12/03/19 12:28 Urine Glucose (UA) NEGATIVE mg/dL (NEGATIVE) 12/03/19 12:28 Urine Ketones NEGATIVE mg/dL (NEGATIVE) 12/03/19 12:28 Urine Blood NEGATIVE (NEGATIVE) 12/03/19 12:28 Urine Nitrite NEGATIVE (NEGATIVE) 12/03/19 12:28 Urine Bilirubin NEGATIVE (NEGATIVE) 12/03/19 12:28 Urine Urobilinogen NEGATIVE mg/dL (<2.0) 12/03/19 12:28 Ur Leukocyte Esterase NEGATIVE (NEGATIVE) 12/03/19 12:28 Urine WBC (Auto) 0 /HPF 12/03/19 12:28 Urine RBC (Auto) 1 /HPF 12/03/19 12:28 U Hyaline Cast (Auto) 7 /LPF 12/03/19 12:28 Urine Mucus (Auto) RARE /LPF 12/03/19 12:28 Urine Ascorbic Acid NEGATIVE (NEGATIVE) 12/03/19 12:28 SARS-CoV-2 (PCR) NEGATIVE (NEGATIVE) 12/03/19 09:48 11/29/19 11/29/19 11/30/19 18:14 21:16 05:13 CK-MB (CK-2) 13.70 H 8.94 H Troponin I < 0.012 0.012 NT-Pro-B Natriuret Pep 5020 H 11/30/19 12/06/19 12/08/19 13:02 11:20 05:50 CK-MB (CK-2) 11.50 H Troponin I < 0.012 NT-Pro-B Natriuret Pep 3080 H 3400 H Impressions: Chest X-Ray 11/29/19 00:00 IMPRESSION: Cardiomegaly without anthony pulmonary edema. Chest CT 11/30/19 00:00 IMPRESSION: STABLE CHRONIC EMPHYSEMATOUS CHANGES AND CHRONIC SCARRING IN THE RIGHT LUNG BASE. NO ACUTE FINDING ON NON-CONTRASTED CHEST CT. Chest/Abdomen CTA 12/02/19 00:00 IMPRESSION: No emboli visualized in the main pulmonary arteries or the segmen xiomara branches.New multifocal patchy -nodular airspace opacities throughout the left lower lobe with more dense consolidation in the inferior-posterior segments. Similar nodular opacities in the right lower lobe. No pleural effusion. Chest X-Ray 12/02/19 03:05 IMPRESSION: New bibasilar airspace opacities. Findings are worrisome for pneumonia. copyright 2011 [employer]- All Rights Reserved Chest X-Ray 12/04/19 00:00 IMPRESSION: Improved aeration. PICC Line Insertion 12/04/19 13:49 IMPRESSION: SUCCESSFUL PLACEMENT OF A 5 FR DUAL LUMEN 47 CM PICC IN THE LEFT BASILIC VEIN. Chest X-Ray 12/08/19 00:00 IMPRESSION: Mixed picture lung exam with worsening in the left lung base and improvement in the right lung base. Stroke Is this a Stroke Patient?: No Acute Heart Failure - Is this a Heart Failure Patient?: Yes Documentation of LVEF assessment?: Yes LVEF: LVEF Greater Than 40% Anticoagulant Therapy: N/A Discharged on Evidence-Based Beta Blockers: Yes Discharged on ARNI?: Yes Discharged on ARB?: N/A-Discharged on ARNI Discharged on ACEI?: N/A Discharged on ARNI For LVEF <35%, discharged on Aldosterone Antagonist?: N/A (LVEF > or = 35%)
== END 2019-12-12 17:39 | disposition home or self-care (01) | DRG 291 ==
LOC: 3W 16:50
PROVIDERS: ADMIT Internal Medicine; ATTEND Internal Medicine
PROC: 02HV33Z Insertion of Infusion Device into Superior Vena Cava, Percutaneous Approach (ICD-10-PCS; 2019-12-04)
PROC: B548ZZA Ultrasonography of Superior Vena Cava, Guidance (ICD-10-PCS; 2019-12-04)
PROC: B518ZZA Fluoroscopy of Superior Vena Cava, Guidance (ICD-10-PCS; 2019-12-04)
PROC: 0DB78ZX Excision of Stomach, Pylorus, Via Natural or Artificial Opening Endoscopic, Diagnostic (ICD-10-PCS; principal; 2019-12-11 17:30)
PROC: 0DJD8ZZ Inspection of Lower Intestinal Tract, Via Natural or Artificial Opening Endoscopic (ICD-10-PCS; 2019-12-11 17:30)
DX: I11.0 Hypertensive heart disease with heart failure (principal); J18.9 Pneumonia, unspecified organism; N17.9 Acute kidney failure, unspecified; E87.1 Hypo-osmolality and hyponatremia; K29.50 Unspecified chronic gastritis without bleeding; I50.23 Acute on chronic systolic (congestive) heart failure; I25.10 Atherosclerotic heart disease of native coronary artery without angina pectoris; D50.0 Iron deficiency anemia secondary to blood loss (chronic); I25.2 Old myocardial infarction; E78.5 Hyperlipidemia, unspecified; I73.9 Peripheral vascular disease, unspecified; I34.0 Nonrheumatic mitral (valve) insufficiency; J44.9 Chronic obstructive pulmonary disease, unspecified; Y95 Nosocomial condition; G89.4 Chronic pain syndrome; I95.0 Idiopathic hypotension; Z20.828 Contact with and (suspected) exposure to other viral communicable diseases; Z87.891 Personal history of nicotine dependence; Z88.0 Allergy status to penicillin; Z95.5 Presence of coronary angioplasty implant and graft; Z95.1 Presence of aortocoronary bypass graft; Z85.048 Personal history of other malignant neoplasm of rectum, rectosigmoid junction, and anus; Z79.891 Long term (current) use of opiate analgesic; Z79.82 Long term (current) use of aspirin
CPT/HCPCS: 36415; 36573; 43239; 45378; 71045; 71250; 71275; 80048; 80053; 80076; 81001; 82378; 82550; 82553; 82728; 82962; 83540; 83550; 83735; 83880; 84145; 84439; 84443; 84481; 84484; 85025; 85379; 87040; 87070; 87205; 87635; 88305; 88342; 93005; 93010; 93306; 94640; C9803; J0171; J1200; J1265; J1439; J1610; J1642; J1650; J1940; J2020; J2185; J2250; J2310; J2405; J2704; J2760; J3010; J3490; J7040; J7050; J7120; J7620; S0119